=== PATIENT | male | born 1950 | race Caucasian/White ===

== ENCOUNTER → 2016-12-08 08:18 | Day surgery (SDC) | payer MEDICARE, BC, OTHER ==
[~2016-12-08 08:18] MED LIST: Buffered Lidocaine 1% SYR 3ML* 3 ML/SYR SYRINGE INTRADERM ONE; Buffered Lidocaine 1% SYR 3ML* 3 ML/SYR SYRINGE ONE; Dexamethasone IV* 4 MG/ML 1 ML (4 MG) IV SLOW PU ONE; Dexamethasone IV* 4 MG/ML 1 ML (4 MG) ONE; DiMENhydriNATE IV* 50 MG/ML VIAL IV PUSH PRN; Famotidine IV* 10 MG/ML 2 ML (20 mg) IV ONE; Famotidine IV* 10 MG/ML 2 ML (20 mg) ONE; Gentamicin ADULT (*) 140 MG in NS 0.9% 100 ML* 100 ML IVPB ONE; Ketorolac INJ* 30 MG/ML 1 ML VIAL ONE; Lidocaine 1% INJ* 10 MG/ML 30 ML SDV ONE; Ondansetron INJ* 2 MG/ML VIAL ONE; Propofol* 10 MG/ML 20 ML BTL IV PUSH ONE; cefTRIAXone(*) 2 GM ADDV.VIAL IVPB ONE; fentaNYL* 50 MCG/ML 2 ML VIAL (100 MCG VIAL) IV PRN; fentaNYL* 50 MCG/ML 2 ML VIAL (100 MCG VIAL) ONE
[2016-12-08 11:11] VITALS: BP 139/89
--- NOTE | 2016-12-08 12:16 | OP ---
DATE OF OPERATION: 12/08/2016 - [facility] DATE OF : 1950 - AGE: 66-year-old male. SURGEON: Dr. Marvin Chris. ANESTHESIOLOGIST: Dr. Bakari Jimenez. ANESTHESIA: General. PRE-OP DIAGNOSIS: 1. Urethral stricture. 2. Urinary retention. 3. Bladder calculi. POST-OP DIAGNOSIS: 1. Urethral stricture. 2. Urinary retention. 3. Bladder calculi. OPERATIVE PROCEDURE: Cystoscopy, internal urethrotomy, fragmentation and removal of multiple bladder calculi. COMPLICATIONS: None. CATHETER: 22 [place]. INDICATIONS: Ken Beck is a 66-year-old gentleman with multiple sclerosis, urinary retention and a history of urethral strictures. OPERATIVE FINDINGS: 1. Strictures bulbar urethra. 2. Multiple bladder calculi. 3. Diverticulum posterior bladder wall right side with additional calculi within diverticulum. POSTOPERATIVE CONDITION: Stable. DESCRIPTION OF PROCEDURE: After induction of general anesthesia, the patient was placed in the dorsal lithotomy position. Sequential compression devices were in place and functioning. The previously placed Alarcon had been removed. The internal urethrotome was introduced. In the bulbar urethra, a stricture was noted with small calcifications in that area. This was carefully incised at the 12 o'clock position. A cystoscope was then introduced and the bladder was examined. There were multiple calculi noted in the bladder. These were fragmented and removed. There was a diverticulum noted in the posterior bladder wall on the right side and this also was full of calculi. These were carefully extracted out of the diverticulum and then were fragmented and irrigated out the [facility] evacuator. A guidewire was placed into the bladder and a 22 [place] was placed over it without difficulty. The patient tolerated the procedure satisfactorily and was transferred back to the recovery area in stable condition. CC: Dr. Davila * [id number]/[facility] #: [id number] [facility]US[facility]
== END | disposition home or self-care (01) ==
LOC: OR 08:18
PROVIDERS: ATTEND Urology
DX: N35.9 Urethral stricture, unspecified (principal); G35 Multiple sclerosis; N21.0 Calculus in bladder; N32.3 Diverticulum of bladder; R33.9 Retention of urine, unspecified; I10 Essential (primary) hypertension; Z87.891 Personal history of nicotine dependence; E11.9 Type 2 diabetes mellitus without complications; Z85.038 Personal history of other malignant neoplasm of large intestine
CPT/HCPCS: J0696; J1100; J1580; J1885; J2405; J2704; J3010

== ENCOUNTER 2017-04-29 17:52 | Emergency (ER) | payer MEDICARE, BC, OTHER ==
--- NOTE | 2017-04-29 18:24 | ED ---
Lower Extremity - HPI Summary HPI Summary: 66M presents with left leg pain for 3 days. He has history of MS and is bed bound. He gets numbness in area that is due to MS and no recent change to this. States pain is worst when people move his leg for him as he is unable to move his leg on his own. He denies any back pain. There was no injury to the area. He states the pain is greatest on the posterior aspect of his calf. He denies any rash to the area. He has not taken anything for pain. He called his primary who told him to come here. - History of Current Complaint Chief Complaint: EDExtremityLower Stated Complaint: LEG PAIN Time Seen by Provider: 04/29/17 18:12 Pain Intensity: 3 - Allergies/Home Medications Allergies/Adverse Reactions: Allergies Allergy/AdvReac Type Severity Reaction Status Date / Time No Known Allergies Allergy Verified 12/08/16 08:29 PMH/Surg Hx/FS Hx/Imm Hx Endocrine/Hematology History: Reports: Hx Diabetes - TYPE 2 - NO MEDS Cardiovascular History: Reports: Hx Hypercholesterolemia, Hx Hypertension, Hx Peripheral Vascular Disease - POOR LOWER LEG CIRCULATION, Other Cardiovascular Problems/Disorders - CHOLESTEROL CONTROL WITH MEDS Denies: Hx Pacemaker/ICD GI History: Reports: Hx Gastroesophageal Reflux Disease - CONTROL WITH MED, Hx Gastrointestinal Bleed, Other GI Disorders - COLON CA History: Reports: Hx Kidney Infection, Hx Kidney Stones - HX OF, Other Problems/Disorders - HYDRONEPHROSIS AND PYLONEPHROSIS, chronic perez Musculoskeletal History: Reports: Hx Arthritis, Other Musculoskeletal History - MS Sensory History: Reports: Hx Cataracts - RIGHT EYE, SURGERY DONE, Hx Contacts or Glasses - READING GLASSES Denies: Hx Glaucoma, Hx Hearing Aid Opthamlomology History: Reports: Hx Cataracts - RIGHT EYE, SURGERY DONE, Hx Contacts or Glasses - READING GLASSES Denies: Hx Glaucoma Neurological History: Reports: Hx Developmental Delay, Other Neuro Impairments/ Disorders - MS Psychiatric History: Reports: Hx Anxiety Denies: Hx Panic Disorder - Cancer History Cancer Type, Location and Year: colon cancer? Hx Chemotherapy: No - Surgical History Surgery Procedure, Year, and Place: CATARACTS RIGHT EYE, 1997, [facility] [place],. HERNIATED DISC, , [facility] [place]. 2009 DIAG LAPAROSCOPY, LAPAROTOMY WITH SMALL BOWEL MESENTERIC MASS RESECTION, [facility] [place]. 06/2013 CYSTOSCOPY, BILATERAL RETROGRADE, URETEROSCOPY, FRAGMENTATION AND REMOVAL LEFT URETERAL CALCULUS, BILATERAL STENT INSERTION, [facility] [place]. 08/2013 CYSTOSCOPY, BILATERAL STENT REMOVAL, [facility] [place]. 08/2015 CYSTOSCOPY, URETHERAL DILATION, FRAGMENT OF BLADDER CALCULI, REMOVAL OF SUPRAPUBIC CATHETER, [facility] [place]. 10/2016 CYSTOSCOPY, URETHRAL DILATION, INSERTION OF [place] TIP CATHETER, [facility] [place] Hx Anesthesia Reactions: No - Immunization History Date of Tetanus Vaccine: Unk Date of Influenza Vaccine: Fall 2013 Infectious Disease History: No Infectious Disease History: Denies: Traveled Outside the [place] in Last 30 Days - Family History Known Family History: Positive: Diabetes Family History: Denies FHx prostate cancer - Social History Alcohol Use: None Substance Use Type: Reports: None Smoking Status (MU): Former Smoker Type: Cigarettes Have You Smoked in the Last Year: No Review of Systems Negative: Fever Negative: Chest Pain Negative: Shortness Of Breath Positive: Myalgia - left leg pain All Other Systems Reviewed And Are Negative: Yes Physical Exam Triage Information Reviewed: Yes Vital Signs On Initial Exam: Initial Vitals Temp Pulse Resp BP Pulse Ox 97.4 F 68 16 132/61 98 04/29/17 18:02 04/29/17 18:02 04/29/17 18:02 04/29/17 18:02 04/29/17 18:02 Vital Signs Reviewed: Yes Appearance: Positive: Well-Appearing Skin: Positive: Warm, Dry Head/Face: Positive: Normal Head/Face Inspection Eyes: Positive: Normal, Conjunctiva Clear Respiratory/Lung Sounds: Positive: Clear to Auscultation, Breath Sounds Present Cardiovascular: Positive: Normal, RRR Musculoskeletal: Positive: Other - tender to palpation of calf muscle, good pulses, capillary refill < 2 secs,. Negative: Lexy Sign Left Diagnostics - Vital Signs Vital Signs Temp Pulse Resp BP Pulse Ox 04/29/17 18:02 97.4 F 68 16 132/61 98 - Laboratory Lab Statement: Any lab studies that have been ordered have been reviewed, and results considered in the medical decision making process. - Ultrasound No standard instances Ultrasound Interpretation: No Acute Changes - IMPRESSION: NO EVIDENCE FOR DEEP VENOUS THROMBOSIS. Ultrasound Interpretation Completed By: Radiologist Lower Extremity Course/Dx - Course Course Of Treatment: 66M presents with intermittent left calf pain for 3 days. is bedbound so no risk of fracture. states worst when people try to move leg. has history of MS so no function in leg at baseline. no rash seen. neg homans. discussed that most dangerous thing would be blood clot. u/s leg normal. explained that fx unlikely and no DVT so do not have cause for pain but ruled out anything life threatening so can follow up with PCP. patient understands and agrees with plan - Diagnoses Differential Diagnosis/HQI/PQRI: Positive: DVT, Sprain, Strain Provider Diagnoses: Left leg pain Discharge - Discharge Plan Condition: Good Disposition: HOME Patient Education Materials: Leg Pain (ED) Referrals: Samantha Davila MD [Primary Care Provider] - Additional Instructions: You do not have a blood clot causing your pain Take ibuprofen or Tylenol every 8 hours for pain as needed Place ice on area Follow up with primary within 5 days Return to ED if develop any new or worsening symptoms
--- NOTE | 2017-04-29 19:44 | RAD ---
INDICATION: Left lower extremity pain. COMPARISON: There are no prior studies available for comparison. TECHNIQUE: Multiple real-time, color flow and Doppler tracings of the left lower extremity were obtained. FINDINGS: The common femoral, femoral, profunda femoral and popliteal veins all demonstrate normal compressibility, augmentation with compression and phasic response with respiration. The posterior tibial and peroneal veins demonstrate normal compressibility and augmentation with compression. IMPRESSION: NO EVIDENCE FOR DEEP VENOUS THROMBOSIS.
[2017-04-29] MEDS ORDERED: Ibuprofen TAB* 600 MG PO ONE (19:56)
[2017-04-29 20:14] VITALS: BP 127/51
== END 2017-04-29 23:24 | disposition home or self-care (01) ==
LOC: ED 17:52
DX: M79.605 Pain in left leg (principal); Z87.891 Personal history of nicotine dependence
CPT/HCPCS: 99284; A9270-GY

== ENCOUNTER 2017-11-24 16:28 | Inpatient (IN) | payer MEDICARE, BC, OTHER ==
[2017-11-24] MEDS ORDERED: NS 0.9% 1000 ML* 1,000 ML IV ONE (18:18)
--- NOTE | 2017-11-24 18:53 | ED ---
Deric Figueredo Angela, scribed for Kaylee Temple MD on 11/24/17 at 1744 . Upper Extremity Pain - HPI Summary HPI Summary: This pt is a 67 y/o male, accompanied by his , [facility]/[place] [facility] hand swelling. Per , trauma and injury are unknown to his hand. . reports the pt has felt warm, AMS, has been thirsty, and eye discharge. denies the pt has had recent fall. Denies fever, vomiting, diarrhea, chest pain , SOB. Pt has attempted to make an appointment with PCP but was unable to. Pt has multiple different kinds of insects on body. Pt has pets, denies her pets have fleas PMHx include BPH. Pt has a perez, dark and pus looking for 4-5 days. - History of Current Complaint Chief Complaint: EDExtremityUpper Stated Complaint: LT HAND SWELLING Time Seen by Provider: 11/24/17 17:37 Hx Obtained From: Patient Mechanism Of Injury: Unknown Onset/Duration: Started Days Ago, Still Present Timing: Lasting Days Pain Location: Hand - left Aggravating Factor(s): Nothing Alleviating Factor(s): Nothing Associated Signs & Symptoms: Positive: Swelling. Negative: Chest Pain, SOB - Allergies/Home Medications Allergies/Adverse Reactions: Allergies Allergy/AdvReac Type Severity Reaction Status Date / Time No Known Allergies Allergy Verified 12/08/16 08:29 PMH/Surg Hx/FS Hx/Imm Hx Endocrine/Hematology History: Reports: Hx Diabetes - TYPE 2 - NO MEDS Cardiovascular History: Reports: Hx Hypercholesterolemia, Hx Hypertension, Hx Peripheral Vascular Disease - POOR LOWER LEG CIRCULATION, Other Cardiovascular Problems/Disorders - CHOLESTEROL CONTROL WITH MEDS Denies: Hx Pacemaker/ICD GI History: Reports: Hx Gastroesophageal Reflux Disease - CONTROL WITH MED, Hx Gastrointestinal Bleed, Other GI Disorders - COLON CA History: Reports: Hx Kidney Infection, Hx Kidney Stones - HX OF, Other Problems/Disorders - HYDRONEPHROSIS AND PYLONEPHROSIS, chronic perez Musculoskeletal History: Reports: Hx Arthritis, Other Musculoskeletal History - MS Sensory History: Reports: Hx Cataracts - RIGHT EYE, SURGERY DONE, Hx Contacts or Glasses - READING GLASSES Denies: Hx Glaucoma, Hx Hearing Aid Opthamlomology History: Reports: Hx Cataracts - RIGHT EYE, SURGERY DONE, Hx Contacts or Glasses - READING GLASSES Denies: Hx Glaucoma Neurological History: Reports: Hx Developmental Delay, Other Neuro Impairments/ Disorders - MS Psychiatric History: Reports: Hx Anxiety Denies: Hx Panic Disorder - Cancer History Cancer Type, Location and Year: colon cancer? Hx Chemotherapy: No - Surgical History Surgery Procedure, Year, and Place: CATARACTS RIGHT EYE, 1997, [facility] [place],. HERNIATED DISC, , [facility] [place]. 2009 DIAG LAPAROSCOPY, LAPAROTOMY WITH SMALL BOWEL MESENTERIC MASS RESECTION, [facility] [place]. 06/2013 CYSTOSCOPY, BILATERAL RETROGRADE, URETEROSCOPY, FRAGMENTATION AND REMOVAL LEFT URETERAL CALCULUS, BILATERAL STENT INSERTION, [facility] [place]. 08/2013 CYSTOSCOPY, BILATERAL STENT REMOVAL, [facility] [place]. 08/2015 CYSTOSCOPY, URETHERAL DILATION, FRAGMENT OF BLADDER CALCULI, REMOVAL OF SUPRAPUBIC CATHETER, [facility] [place]. 10/2016 CYSTOSCOPY, URETHRAL DILATION, INSERTION OF [place] TIP CATHETER, [facility] Anesthesia Reactions: No - Immunization History Date of Tetanus Vaccine: Unk Date of Influenza Vaccine: Fall 2013 Infectious Disease History: No Infectious Disease History: Denies: Traveled Outside the [place] in Last 30 Days - Family History Known Family History: Positive: Diabetes Family History: Denies FHx prostate cancer - Social History Alcohol Use: None Substance Use Type: Reports: None Smoking Status (MU): Former Smoker Type: Cigarettes Have You Smoked in the Last Year: No Review of Systems Constitutional: Other - feeling warm, per . Negative: Fever Positive: Drainage Negative: Chest Pain Negative: Shortness Of Breath Negative: Vomiting, Diarrhea Positive: Edema - of left hand Skin: Other - edema to left hand Neurological: Other - AMS All Other Systems Reviewed And Are Negative: No Physical Exam - Summary Physical Exam Summary: Appearance: Alert, emaciated muscle wasting Skin: Warm, dry, no mottling, no rashes, no contusions HEENT: EOMI, PERRL, moist mucous membranes. Left eye: conjunctiva is injected and has a little bit of discharge. Neck: No masses on the neck, supple Respiratory: Clear to auscultation, breath sounds present, no rales, no rhonchi , no wheezes Cardiovascular: RRR, pulses are symmetrical in both lower and upper extremities Abdomen: Soft, non-tender Bowel Sounds: Present Musculoskeletal: No CVA tenderness, no obvious deformity, moving all extremities in a grossly normal manner. Dependent edema to the right. Neurological: A&Ox3, CN II-XII Intact, moving all extremities symmetrically Psychiatric: Normal affect and mood Triage Information Reviewed: Yes Vital Signs On Initial Exam: Initial Vitals Temp Pulse Resp BP Pulse Ox 99.1 F 82 18 104/65 95 11/24/17 16:35 11/24/17 16:35 11/24/17 16:35 11/24/17 16:35 11/24/17 16:35 Vital Signs Reviewed: Yes Diagnostics - Vital Signs Vital Signs Temp Pulse Resp BP Pulse Ox 11/24/17 16:35 99.1 F 82 18 104/65 95 - Laboratory Lab Statement: Any lab studies that have been ordered have been reviewed, and results considered in the medical decision making process. Course/Dx - Course Course Of Treatment: This pt is a 67 y/o male, accompanied by his , presenting to [facility] c/o left hand swelling. Per , trauma and injury are unknown to his hand. . reports the pt has felt warm, AMS, has been thirsty , and eye discharge. denies the pt has had recent fall. Pt will be signed out to Dr. Orozco, pending disposition, awaiting images and labs. I spoke with the nurse requesting pt's wedding ring be removed from left ring finger due to the swelling of the left hand. - Diagnoses Provider Diagnoses: Dehydration Discharge - Discharge Plan Condition: Stable Disposition: OTHER Discharge Disposition Comment: signed out to Dr. Orozco, pending disposition, awaiting images and labs. Referrals: Samantha Davila MD [Primary Care Provider] - The documentation as recorded by the Deric slaughter Angela accurately reflects the service I personally performed and the decisions made by me, Kaylee Tmeple MD.
[2017-11-24 19:11] LABS: ABS Basophils 0 10^3/ul (0-0.2); ABS Eosinophils 0 10^3/ul (0-0.6); ABS Lymphocytes 1.2 10^3/ul (1.0-4.8); ABS Monocytes 1.2 10^3/ul (0-0.8); ABS Neutrophils 8.9 10^3/ul (1.5-7.7); ABS Nucleated RBC 0.01 10^3/ul; Eosinophil % 0.4 % (0-6); Hematocrit 37 % (42-52); Hemoglobin 12.2 g/dl (14.0-18.0); Lymphocyte % 10.7 % (25-47); Mean Corpuscular HGB Conc 33 g/dl (31-36); Mean Corpuscular Hemoglobin 31 pg (27-31); Mean Corpuscular Volume 95 fL (80-94); Mean Platelet Volume 9 um3 (7.4-10.4); Nucleated Red Blood Cells % 0; Platelet Count 311 10^3/ul (150-450); Red Cell Distribution Width 16 % (10.5-15); White Blood Count 11.4 10^3/ul (3.5-10.8)
[2017-11-24 19:22] LABS: EGFR Non-African American 234.1 (>60)
--- NOTE | 2017-11-24 19:32 | RAD ---
Indication: LEFT hand swelling. Comparison: January 17, 2015 Technique: Sitting AP 1840 hours Report: No pulmonary infiltrate, focal pulmonary lesion, pleural effusion, or pneumothorax. Mild elevation of the RIGHT hemidiaphragm. The heart, pulmonary vasculature, and mediastinal contours are unremarkable. Bone density appears decreased throughout. No fracture visualized. IMPRESSION: No evidence for acute intrathoracic disease.
--- NOTE | 2017-11-24 19:40 | RAD ---
Indication: LEFT hand swelling. Comparison: No relevant prior exams available on the [facility] PACS for comparison. Technique: AP and lateral views LEFT hand. Report: Bone density appears severely decreased throughout. No fracture evident. Polyarticular joint space narrowing most prominent at the interphalangeal joints with relative paucity of osteophytosis. Suggestion of small erosions at the metacarpal phalangeal and interphalangeal joints. Periarticular osteopenia. Mild periarticular soft tissue swelling. IMPRESSION: 1. Marked decreased bone density. No evidence for fracture. 2. Stigmata of polyarticular inflammatory arthropathy/rheumatoid arthritis.
[2017-11-24 21:07] LABS: Urine Appearance Turbid; Urine Blood 3+ (Negative); Urine Color Amber; Urine Ketones Trace (Negative); Urine Protein 3+(>=500 mg/dL) (Negative); Urine Urobilinogen Positive (Negative)
[2017-11-24] MEDS ORDERED: Levofloxacin 500 MG IVPREMIX(* 500 MG/100 ML BAG IVPB ONE (22:48)
--- NOTE | 2017-11-24 22:55 | ED ---
Yanni Figueredo Gabriel, edsonibed for Bree Oroczo MD on 11/24/17 at 2254 . Progress - Progress Note Progress Note: Patient was signed out from doctor Maverick. CXR reveals, per radiologist, No evidence for acute intrathoracic disease. ED physician has reviewed this radiology report. Hand XR reveals, per radiologist, 1. Marked decreased bone density. No evidence for fracture. 2. Stigmata of polyarticular inflammatory arthropathy/rheumatoid arthritis. ED physician has reviewed this radiology report. Patient will be admitted with follow up from Dr. Cueto. Course/Dx - Course Course Of Treatment: This pt is a 67 y/o male, accompanied by his , presenting to [facility] c/o left hand swelling. Per , trauma and injury are unknown to his hand. . reports the pt has felt warm, AMS, has been thirsty , and eye discharge. denies the pt has had recent fall. Pt will be signed out to Dr. Orozco, pending disposition, awaiting images and labs. I spoke with the nurse requesting pt's wedding ring be removed from left ring finger due to the swelling of the left hand. - Diagnoses Provider Diagnoses: Dehydration, UTI (urinary tract infection) - Provider Notifications Discussed Care Of Patient With: Miah Hernandez Time Discussed With Above Provider: 22:54 Instructed by Provider To: Admit As Inpatient The documentation as recorded by the Yanni slaughter Gabriel accurately reflects the service I personally performed and the decisions made by , Bree Orozco MD.
[2017-11-24] MEDS ORDERED: Acetaminophen SUPP* 650 MG SUPP PR PRN (23:00)
[2017-11-24] MEDS ORDERED: Albuterol 2.5 MG/3 ML NEB.SOL* (0.083%) INH PRN (23:00)
[2017-11-24] MEDS ORDERED: LORazepam INJ* 2 MG/ML 1 ML VIAL IV PRN (23:02)
[2017-11-24] MEDS ORDERED: Ondansetron INJ* 2 MG/ML VIAL IV PRN (23:03)
--- NOTE | 2017-11-25 02:47 | HP ---
H&P (Free Text) History and Physical: PCP: Kiera Davila MD Date/Time: 11/24/2017 2250 CC: mild L hand swelling, urinary catheter 2 months past due for exchange, runny eyes HPI: Mr Beck is a 67YO bed-bound male HX MS w/ neurogenic bladder, DM, HTN, & HLD who was brought in via EMS per his for mild L hand swelling which has since spontaneously improved. Mr Beck denies injury, pain, F/C, N/V/D, sweats, chest pain, SOB, N/V, palpitations, or other issues. He was noted by ED staff to be infested with bed bugs and have dried food caking his face. It was felt he was not able to be adequately cared for at home and so admission was requested for further evaluation and consideration of placement. PMedHx MS, bed-bound w/ neurogenic bladder DM, diet controlled HTN HLD BPH GERD Ambulatory Orders Nursing to reconcile. Aspirin EC TAB* [Ecotrin EC TAB*] 325 mg PO QAM 07/06/13 Atenolol TAB* [Tenormin TAB* 50 MG] 25 mg PO QAM 07/06/13 Baclofen TAB* [Lioresal TAB*] 20 mg PO TID 07/06/13 Ferrous Sulfate TAB* 325 mg PO QAM 07/06/13 Meclizine TAB* [Antivert 12.5 TAB*] 25 mg PO Q8HR PRN 07/06/13 Pantoprazole TAB (NF) [Protonix TAB (NF)] 40 mg PO QAM 07/06/13 Citalopram TAB* [Celexa TAB*] 40 mg PO QAM 01/17/15 Multiple Vitamins W/ Minerals [Multi Complete/Iron] 1 tab PO QAM 01/17/15 Ibuprofen TAB* [Advil TAB*] 400 mg PO Q6H PRN 09/01/15 Magnesium Hydroxide LIQ* [Milk of Magnesia LIQ*] 30 ml PO Q3D PRN 09/01/15 Oxybutynin XL TAB* [Ditropan XL TAB*] 5 mg PO TID 09/01/15 Fenofibrate(NF) [Tricor(NF)] 145 mg PO QAM 10/02/16 Nystatin TOP POWDER* 1 applic TOPICAL BID 10/02/16 Barnwell-3 Fatty Acids [Fish Oil 1200 mg] 1 cap PO BID 10/02/16 Polyethylene Glycol 3350* [Miralax*] 17 gm PO QAM 10/02/16 Sennosides [Senna-Lax] 17.2 mg PO Q24HR 10/02/16 Simvastatin (NF) [Zocor (NF)] 40 mg PO BEDTIME 10/02/16 Sulfamethox/Trimethoprim DS* [Bactrim DS 800/160 TAB*] 1 tab PO BID #20 tab 09/07 Ciprofloxacin TAB* [Cipro 500 MG TAB*] 500 mg PO BID #20 tab 10/05/16 Terbinafine HCl (Topical) [Lamisil At] 1 % EX DAILY #1 tube 01/05/17 Ciprofloxacin TAB* [Cipro 250 MG Tab*] 250 mg PO BID #14 tab 03/13/17 Allergies No Known Allergies Allergy (Verified 12/08/16 08:29) SocHx: former smoker, no alcohol or recreational drug HX; lives with his ; DNR/I code status FamHx: strongly positive for leukemia ROS: as above, otherwise reviewed and all were negative vitals: Vital Signs Temp 37.3 C 11/24/17 16:35 Pulse 84 11/25/17 01:18 Resp 16 11/25/17 01:18 BP 90/65 11/25/17 01:18 Pulse Ox 96 11/25/17 01:18 Intake & Output 11/24/17 11/24/17 11/25/17 11:59 23:59 11:59 Intake Total 1000 Balance 1000 Weight 38.555 kg Intake: IV Fluids 1000 Constitutional: NAD, normally developed, unkempt, cachectic white male HEENM: atraumatic; sclera/conjunctiva: anicteric/clear; hearing: clinically intact; oropharynx: clear, mucosa moist Neck: soft tissue: non-tender, no nuchal rigidity; thyroid: normal, non-tender Pulmonary: clear to auscultation bilaterally, good aeration, no accessory muscle use CV: RR/RR, normal S1S2, no carotid bruit, no jugular venous distention, 2+ B DP/ PT, no edema Abdominal: soft, non-distended, non-tender, no rebound/guarding/rigidity, normoactive bowel sounds, no hepatosplenomegaly or masses, no costovertebral angle tenderness Musculoskeletal: general: grossly intact, generally advanced muscle wasting & atrophy Integumental: normal appearance and texture of exposed skin Psychiatric orientation: AA&O to PPS affect: calm mood: cooperative eye contact: fair content: mostly reliable responses: timely insight: poor Testing: Lab Results 11/24/17 11/24/17 11/24/17 Range/Units 18:55 18:55 18:55 WBC 11.4 H (3.5-10.8) 10^3/ul RBC 3.90 L (4.0-5.4) 10^6/ul Hgb 12.2 L (14.0-18.0) g/dl Hct 37 L (42-52) % MCV 95 H (80-94) fL MCH 31 (27-31) pg MCHC 33 (31-36) g/dl RDW 16 H (10.5-15) % Plt Count 311 (150-450) 10^3/ul MPV 9 (7.4-10.4) um3 Neut % (Auto) 77.9 (38-83) % Lymph % (Auto) 10.7 L (25-47) % [place] % (Auto) 10.6 H (1-9) % Eos % (Auto) 0.4 (0-6) % Baso % (Auto) 0.4 (0-2) % Absolute Neuts (auto) 8.9 H (1.5-7.7) 10^3/ul Absolute Lymphs (auto) 1.2 (1.0-4.8) 10^3/ul Absolute Monos (auto) 1.2 H (0-0.8) 10^3/ul Absolute Eos (auto) 0 (0-0.6) 10^3/ul Absolute Basos (auto) 0 (0-0.2) 10^3/ul Absolute Nucleated RBC 0.01 10^3/ul Nucleated RBC % 0 Sodium 137 (133-145) mmol/L Potassium 3.5 (3.5-5.0) mmol/L Chloride 104 (101-111) mmol/L Carbon Dioxide 28 (22-32) mmol/L Anion Gap 5 (2-11) mmol/L BUN 35 H (6-24) mg/dL Creatinine 0.37 L (0.67-1.17) mg/dL Est GFR ( Amer) 301.0 (>60) Est GFR (Non-Af Amer) 234.1 (>60) BUN/Creatinine Ratio 94.6 H (8-20) Glucose 109 H (70-100) mg/dL Lactic Acid 0.6 (0.5-2.0) mmol/L Calcium 9.0 (8.6-10.3) mg/dL Total Bilirubin 0.60 (0.2-1.0) mg/dL AST 10 L (13-39) U/L ALT 8 (7-52) U/L Alkaline Phosphatase 28 L (34-104) U/L Total Protein 5.5 L (6.4-8.9) g/dL Albumin 3.1 L (3.2-5.2) g/dL Globulin 2.4 (2-4) g/dL Albumin/Globulin Ratio 1.3 (1-3) Urine Color Urine Appearance Urine pH (5-9) Ur Specific Lamont (1.010-1.030) Urine Protein (Negative) Urine Ketones (Negative) Urine Blood (Negative) Urine Nitrate (Negative) Urine Bilirubin (Negative) Urine Urobilinogen (Negative) Ur Leukocyte Esterase (Negative) Urine WBC (Auto) (Absent) Urine RBC (Auto) (Absent) Urine Bacteria (Absent) Urine Glucose (Negative) 11/24/17 Range/Units 20:37 WBC (3.5-10.8) 10^3/ul RBC (4.0-5.4) 10^6/ul Hgb (14.0-18.0) g/dl Hct (42-52) % MCV (80-94) fL MCH (27-31) pg MCHC (31-36) g/dl RDW (10.5-15) % Plt Count (150-450) 10^3/ul MPV (7.4-10.4) um3 Neut % (Auto) (38-83) % Lymph % (Auto) (25-47) % [place] % (Auto) (1-9) % Eos % (Auto) (0-6) % Baso % (Auto) (0-2) % Absolute Neuts (auto) (1.5-7.7) 10^3/ul Absolute Lymphs (auto) (1.0-4.8) 10^3/ul Absolute Monos (auto) (0-0.8) 10^3/ul Absolute Eos (auto) (0-0.6) 10^3/ul Absolute Basos (auto) (0-0.2) 10^3/ul Absolute Nucleated RBC 10^3/ul Nucleated RBC % Sodium (133-145) mmol/L Potassium (3.5-5.0) mmol/L Chloride (101-111) mmol/L Carbon Dioxide (22-32) mmol/L Anion Gap (2-11) mmol/L BUN (6-24) mg/dL Creatinine (0.67-1.17) mg/dL Est GFR ( Amer) (>60) Est GFR (Non-Af Amer) (>60) BUN/Creatinine Ratio (8-20) Glucose (70-100) mg/dL Lactic Acid (0.5-2.0) mmol/L Calcium (8.6-10.3) mg/dL Total Bilirubin (0.2-1.0) mg/dL AST (13-39) U/L ALT (7-52) U/L Alkaline Phosphatase (34-104) U/L Total Protein (6.4-8.9) g/dL Albumin (3.2-5.2) g/dL Globulin (2-4) g/dL Albumin/Globulin Ratio (1-3) Urine Color Katie Urine Appearance Turbid Urine pH 5.0 (5-9) Ur Specific Lam[place] 1.020 (1.010-1.030) Urine Protein 3+(>=500 mg/dl) H (Negative) Urine Ketones Trace H (Negative) Urine Blood 3+ H (Negative) Urine Nitrate Negative (Negative) Urine Bilirubin Negative (Negative) Urine Urobilinogen Positive H (Negative) Ur Leukocyte Esterase 3+ H (Negative) Urine WBC (Auto) 3+(>20/hpf) H (Absent) Urine RBC (Auto) 3+(>10/hpf) H (Absent) Urine Bacteria 1+ H (Absent) Urine Glucose Negative (Negative) CXR, personally reviewed: IMPRESSION: No evidence for acute intrathoracic disease. XRY L hand, personally reviewed: IMPRESSION: 1. Marked decreased bone density. No evidence for fracture. 2. Stigmata of polyarticular inflammatory arthropathy/rheumatoid arthritis. Impression: 67M HX bed-bound MS w/ neurogenic bladder presents with multiple benign complaints, unable to be cared for at home; found to have a UTI DIAGNOSIS & PLAN Primary UTI : IV levofloxacin : blood & urine CX : supportive care generalized deconditioning : PT/OT evaluations : social worker health services consult for placement Secondary MS : bed-bound w/ neurogenic bladder : exchange catheter : review meds once reconciled DM, diet controlled : check A1c : ACHS glucometry : correctional insulin : consistent carb diet once bedside swallow passed HTN : review meds once reconciled HLD : review meds once reconciled BPH : review meds once reconciled GERD : IV pantoprazole until bedside swallowing eval passed Admission Rational: observation for UTI, generalized conditioning, and assistance with placement DVTp: SCDs & heparin SQ Code Status: DNR/I HCP:
[2017-11-25] MEDS: Insulin LISPRO* 1 UNITS UNIT SUBCUT SCH ×5 (04:28→20:45)
[2017-11-25] MEDS: Heparin VIAL(*) 5000 UNITS/ML VIAL (FIVE THOUSAND) SUBCUT SCH ×3 (05:39→23:12)
[2017-11-25 07:57] LABS: ABS Basophils 0 10^3/ul (0-0.2); ABS Eosinophils 0 10^3/ul (0-0.6); ABS Lymphocytes 0.7 10^3/ul (1.0-4.8); ABS Monocytes 0.7 10^3/ul (0-0.8); ABS Neutrophils 6.1 10^3/ul (1.5-7.7); ABS Nucleated RBC 0 10^3/ul; EGFR Non-African American 298.2 (>60); Eosinophil % 0.6 % (0-6); Hematocrit 33 % (42-52); Hemoglobin 11.1 g/dl (14.0-18.0); Lymphocyte % 9.5 % (25-47); Mean Corpuscular HGB Conc 34 g/dl (31-36); Mean Corpuscular Hemoglobin 32 pg (27-31); Mean Corpuscular Volume 96 fL (80-94); Mean Platelet Volume 9 um3 (7.4-10.4); Nucleated Red Blood Cells % 0; Platelet Count 248 10^3/ul (150-450); Red Blood Count 3.45 10^6/ul (4.0-5.4); Red Cell Distribution Width 16 % (10.5-15); White Blood Count 7.6 10^3/ul (3.5-10.8)
[2017-11-25 08:05] LABS: INR 1.13 (0.77-1.02)
[2017-11-25] MEDS ORDERED: Pneumococcal *Vac Polyvalent 0.5 ML VIAL IM ONE (09:00)
[2017-11-25] MEDS ORDERED: Pantoprazole IV* 40 MG IV SCH (09:00)
--- NOTE | 2017-11-25 15:51 | PN ---
Subjective Date of Service: 11/25/17 Interval History: Patient seen and examined at bedside. Mr. Beck reports improvement in overall symptoms and discomfort. Denies fever/chills, CP, SOB, pain. Patient states he would consider rehab but not SNF placement at this time. Family History: Unchanged from Admission Social History: Unchanged from Admission Past Medical History: Unchanged from Admission Objective Active Medications: Acetaminophen (Tylenol Supp*) 650 mg TN Q6H PRN PRN Reason: FEVER/PAIN Albuterol (Ventolin 2.5 Mg/3 Ml Neb.Bailee*) 2.5 mg INH Q2H PRN PRN Reason: SOB/WHEEZING Heparin Sodium (Porcine) (Heparin Vial(*)) 5,000 units SUBCUT Q8HR [facility] Last Admin: 11/25/17 15:30 Dose: 5,000 units Levofloxacin/Dextrose (Levaquin 750 Mg Ivpremix(*)) 750 mg in 150 mls @ 100 mls /hr IVPB Q24H [facility] Lactated Ringer's (Lactated Ringers 1000 Ml Bag*) 1,000 mls @ 125 mls/hr IV PER RATE [facility] Last Admin: 11/25/17 12:30 Dose: 125 mls/hr Insulin Human Lispro (Humalog*) 0 units SUBCUT Q4H [facility] PRN Reason: Protocol Last Admin: 11/25/17 12:35 Dose: Not Given Lorazepam (Ativan Inj*) 0.5 mg IV BEDTIME PRN PRN Reason: SLEEP Ondansetron HCl (Zofran Inj*) 4 mg IV Q6H PRN PRN Reason: NAUSEA Pantoprazole Sodium (Protonix Iv*) 40 mg IV DAILY [facility] Last Admin: 11/25/17 09:00 Dose: 40 mg Vital Signs - 8 hr 11/25/17 08:00 Respiratory 16 Rate Oxygen Devices in Use Now: None Appearance: Frail, cachectic male, sitting up in bed, NAD Eyes: No Scleral Icterus, PERRLA Ears/Nose/Mouth/Throat: Clear Oropharnyx, Mucous Membranes Moist Neck: NL Appearance and Movements; NL JVP Respiratory: Symmetrical Chest Expansion and Respiratory Effort, Clear to Auscultation Cardiovascular: NL Sounds; No Murmurs; No JVD, RRR Abdominal: NL Sounds; No Tenderness; No Distention Extremities: No Clubbing, Cyanosis, - - bilateral foot drop and upper and lower extremity contractures Neurological: Alert and Oriented x 3 Lines/Tubes/Other Access: Clean, Dry and Intact Perez, Clean, Dry and Intact Peripheral IV Nutrition: Taking PO's Result Diagrams: 11/25/17 07:30 11/25/17 07:30 Assess/Plan/Problems-Billing Assessment: Mr. Beck is 67 yo male with a PMH of MS, neurogenic bladder with chronic indwelling catheter, DM, HTN, HLD, GERD, and BPH who presented with left hand swelling, eye discharge, and concern for UTI. - Patient Problems (1) UTI (urinary tract infection) due to urinary indwelling Perez catheter Code(s): T83.51XA - ; N39.0 - URINARY TRACT INFECTION, SITE NOT SPECIFIED Comment: Urine culture pending Catheter exchanged on admission Continue levofloxacin (2) Multiple sclerosis Code(s): G35 - MULTIPLE SCLEROSIS Comment: Supportive care Continue home baclofen, ibuprofen PT/OT to assess physical deconditioning, contractures, foot drop (3) Type 2 diabetes mellitus Comment: Diet controlled Continue Lispro SSI (4) History of neurogenic bladder Priority: Medium Code(s): Z87.448 - PERSONAL HISTORY OF OTHER DISEASES OF URINARY SYSTEM Comment: Reason for indwelling perez (5) Protein-calorie malnutrition, severe Code(s): E43 - UNSPECIFIED SEVERE PROTEIN-CALORIE MALNUTRITION Comment: With temporal wasting and generalized muscle wasting BMI 13.3 Nutritional consult Continue Ensure supplements (6) Hypertension Code(s): I10 - ESSENTIAL (PRIMARY) HYPERTENSION Comment: Hypotensive to normotensive Continue home atenolol with home parameters (7) Hyperlipidemia Code(s): E78.5 - HYPERLIPIDEMIA, UNSPECIFIED Comment: Continue atorvastatin in subsitute for simvastatin. (8) Confined to bed Code(s): Z74.01 - BED CONFINEMENT STATUS Comment: Reportedly non-ambulatory secondary to MS (9) DVT prophylaxis Comment: SQ heparin Status and Disposition: OBV admit. Evaluation for LAMBERT needs.
[2017-11-25] MEDS ORDERED: ALPRAZolam TAB* 0.25 MG PO PRN (19:06)
[2017-11-25] MEDS ORDERED: Ibuprofen TAB* 400 MG PO PRN (19:06)
[2017-11-25] MEDS ORDERED: Meclizine TAB* 12.5 MG PO PRN (19:06)
[2017-11-25] MEDS: Aspirin EC TAB* 325 MG PO SCH (20:41)
[2017-11-25] MEDS: CMCS: Pantoprazole TAB (NF) 40 MG TAB PO SCH (20:41)
[2017-11-25] MEDS: Baclofen TAB* 10 MG PO SCH (20:41)
[2017-11-25] MEDS: Tobramycin 0.3% OPHTH.SOL* 5 ML BOT (regular eye drops) RIGHT EYE SCH (20:41)
[2017-11-25] MEDS: Senna TAB PO PRN (20:41)
[2017-11-25] MEDS: Oxybutynin TAB* 5 MG PO SCH (20:41)
[2017-11-25] MEDS: Citalopram TAB* 40 MG PO SCH (20:41)
[2017-11-25] MEDS ORDERED: Levofloxacin 750 MG IVPREMIX(* 750 MG/150 ML BAG IVPB SCH (23:00)
[2017-11-26] MEDS: Insulin LISPRO* 1 UNITS UNIT SUBCUT SCH ×5 (00:55→17:33)
[2017-11-26] MEDS: Tobramycin 0.3% OPHTH.SOL* 5 ML BOT (regular eye drops) RIGHT EYE SCH (00:58)
[2017-11-26] MEDS: Tobramycin 0.3% OPHTH.SOL* 5 ML BOT (regular eye drops) LEFT EYE SCH ×6 (01:38→21:24)
[2017-11-26] MEDS: Heparin VIAL(*) 5000 UNITS/ML VIAL (FIVE THOUSAND) SUBCUT SCH ×3 (05:33→21:21)
[2017-11-26] MEDS ORDERED: Atenolol TAB* 50 MG PO SCH (09:00)
[2017-11-26] MEDS: Baclofen TAB* 10 MG PO SCH ×3 (09:24→21:21)
[2017-11-26] MEDS: Aspirin EC TAB* 325 MG PO SCH (09:24)
[2017-11-26] MEDS: Citalopram TAB* 40 MG PO SCH (09:25)
[2017-11-26] MEDS: Atenolol TAB* 25 MG PO SCH (09:25)
[2017-11-26] MEDS: Nystatin CREAM* 15 GM TUBE TOPICAL SCH (09:25)
[2017-11-26] MEDS: Lactobacillus Acidophilu (GG)* 1 CAP CAP PO SCH (09:25)
[2017-11-26] MEDS: CMCS: Fenofibrate(NF) 145 MG TAB PO SCH (09:25)
[2017-11-26] MEDS: CMCS: Pantoprazole TAB (NF) 40 MG TAB PO SCH (09:25)
[2017-11-26] MEDS: Oxybutynin TAB* 5 MG PO SCH ×3 (09:25→21:21)
[2017-11-26] MEDS: Ferrous Sulfate TAB* 325 MG PO SCH (11:12)
--- NOTE | 2017-11-26 12:13 | PN ---
Subjective Date of Service: 11/26/17 Interval History: Patient seen and examined at bedside. Mr. Beck is pleasant and states he feels better overall. Denies fever/chills, increased pain, CP, SOB. No acute concerns at this time. Family History: Unchanged from Admission Social History: Unchanged from Admission Past Medical History: Unchanged from Admission Objective Active Medications: Acetaminophen (Tylenol Supp*) 650 mg OK Q6H PRN PRN Reason: FEVER/PAIN Albuterol (Ventolin 2.5 Mg/3 Ml Neb.Bailee*) 2.5 mg INH Q2H PRN PRN Reason: SOB/WHEEZING Alprazolam (Xanax Tab*) 0.25 mg PO TID PRN PRN Reason: ANXIETY Aspirin (Ecotrin Ec Tab*) 325 mg PO DAILY [facility] Last Admin: 11/26/17 09:24 Dose: 325 mg Atenolol (Tenormin Tab*) 25 mg PO DAILY [facility] Last Admin: 11/26/17 09:25 Dose: 25 mg Atorvastatin Calcium (Lipitor*) 20 mg PO 1700 [facility] Baclofen (Lioresal Tab*) 20 mg PO TID [facility] Last Admin: 11/26/17 09:24 Dose: 20 mg Citalopram Hydrobromide (Celexa Tab*) 40 mg PO DAILY [facility] Last Admin: 11/26/17 09:25 Dose: 40 mg Fenofibrate (Tricor(Nf)) 145 mg PO DAILY [facility] Last Admin: 11/26/17 09:25 Dose: 145 mg Ferrous Sulfate (Ferrous Sulfate Tab*) 325 mg PO DAILY@1200 [facility] Last Admin: 11/26/17 11:12 Dose: 325 mg Heparin Sodium (Porcine) (Heparin Vial(*)) 5,000 units SUBCUT Q8HR [facility] Last Admin: 11/26/17 05:33 Dose: 5,000 units Levofloxacin/Dextrose (Levaquin 750 Mg Ivpremix(*)) 750 mg in 150 mls @ 100 mls /hr IVPB Q24H [facility] Last Admin: 11/25/17 23:13 Dose: 100 mls/hr Lactated Ringer's (Lactated Ringers 1000 Ml Bag*) 1,000 mls @ 125 mls/hr IV PER RATE [facility] Last Admin: 11/26/17 06:56 Dose: 125 mls/hr Ibuprofen (Motrin Tab*) 400 mg PO Q6H PRN PRN Reason: PAIN Insulin Human Lispro (Humalog*) 0 units SUBCUT Q4H [facility] PRN Reason: Protocol Last Admin: 11/26/17 07:13 Dose: Not Given Lactobacillus Rhamnosus (Culturelle*) 1 cap PO DAILY [facility] Last Admin: 11/26/17 09:25 Dose: 1 cap Lorazepam (Ativan Inj*) 0.5 mg IV BEDTIME PRN PRN Reason: SLEEP Meclizine HCl (Antivert Tab*) 25 mg PO Q8H PRN PRN Reason: DIZZINESS Nystatin (Nystatin Cream*) 1 applic TOPICAL DAILY [facility] Last Admin: 11/26/17 09:25 Dose: 1 applic Oxybutynin Chloride (Ditropan Tab*) 5 mg PO TID [facility] Last Admin: 11/26/17 09:25 Dose: 5 mg Pantoprazole Sodium (Protonix Tab (Nf)) 40 mg PO DAILY [facility] Last Admin: 11/26/17 09:25 Dose: 40 mg Senna (Senokot Tab*) 1 tab PO BID PRN PRN Reason: CONSTIPATION Last Admin: 11/25/17 20:41 Dose: 1 tab Tobramycin Sulfate (Tobramycin 0.3% Ophth.Bailee*) 2 drop LEFT EYE Q4H [facility] Last Admin: 11/26/17 09:26 Dose: 2 drop Vital Signs - 8 hr 11/26/17 11/26/17 07:13 08:15 Temperature 97.6 F Pulse Rate 90 Respiratory 14 14 Rate Blood Pressure 147/74 (mmHg) O2 Sat by Pulse 100 Oximetry Oxygen Devices in Use Now: None Appearance: Frail, cachectic male, lying in bed, pleasant, NAD Eyes: No Scleral Icterus Ears/Nose/Mouth/Throat: Mucous Membranes Moist - poor dentition Neck: NL Appearance and Movements; NL JVP Respiratory: Symmetrical Chest Expansion and Respiratory Effort, Clear to Auscultation Cardiovascular: NL Sounds; No Murmurs; No JVD, RRR Abdominal: NL Sounds; No Tenderness; No Distention Neurological: Alert and Oriented x 3 Lines/Tubes/Other Access: Clean, Dry and Intact Peripheral IV Nutrition: Taking PO's Result Diagrams: 11/25/17 07:30 11/25/17 07:30 Assess/Plan/Problems-Billing Assessment: Mr. Beck is 67 yo male with a PMH of MS, neurogenic bladder with chronic indwelling catheter, DM, HTN, HLD, GERD, and BPH who presented with left hand swelling, eye discharge, and concern for UTI. - Patient Problems (1) UTI (urinary tract infection) due to urinary indwelling Perez catheter Code(s): T83.51XA - ; N39.0 - URINARY TRACT INFECTION, SITE NOT SPECIFIED Comment: Urine culture growing pseudomonas and citrobacter Continue levofloxacin for now; will await sensitivities Catheter exchanged on admission (2) Multiple sclerosis Code(s): G35 - MULTIPLE SCLEROSIS Comment: Supportive care Continue home baclofen, ibuprofen PT/OT to assess physical deconditioning, contractures, foot drop (3) Type 2 diabetes mellitus Comment: Diet controlled Continue Lispro SSI (4) History of neurogenic bladder Priority: Medium Code(s): Z87.448 - PERSONAL HISTORY OF OTHER DISEASES OF URINARY SYSTEM Comment: Reason for indwelling perez (5) Protein-calorie malnutrition, severe Code(s): E43 - UNSPECIFIED SEVERE PROTEIN-CALORIE MALNUTRITION Comment: With temporal wasting and generalized muscle wasting BMI 13.3 Nutritional consult Continue Ensure supplements (6) Hypertension Code(s): I10 - ESSENTIAL (PRIMARY) HYPERTENSION Comment: Normotensive Continue home atenolol with home parameters (7) Hyperlipidemia Code(s): E78.5 - HYPERLIPIDEMIA, UNSPECIFIED Comment: Continue atorvastatin in subsitute for simvastatin. (8) Confined to bed Code(s): Z74.01 - BED CONFINEMENT STATUS Comment: Reportedly non-ambulatory secondary to MS (9) DVT prophylaxis Comment: SQ heparin Status and Disposition: OBV admit. Plan for LAMBERT.
[2017-11-26] MEDS ORDERED: Insulin LISPRO* 1 UNITS UNIT SUBCUT ONE (13:20)
[2017-11-26] MEDS: Atorvastatin* 20 MG TAB PO SCH (17:33)
[2017-11-26] MEDS: Levofloxacin TAB* 750 MG PO SCH (21:21)
[2017-11-27] MEDS: Tobramycin 0.3% OPHTH.SOL* 5 ML BOT (regular eye drops) LEFT EYE SCH ×5 (02:15→19:41)
[2017-11-27] MEDS: Heparin VIAL(*) 5000 UNITS/ML VIAL (FIVE THOUSAND) SUBCUT SCH ×2 (05:14→12:57)
[2017-11-27 06:33] LABS: ABS Basophils 0 10^3/ul (0-0.2); ABS Eosinophils 0 10^3/ul (0-0.6); ABS Lymphocytes 1.1 10^3/ul (1.0-4.8); ABS Monocytes 0.5 10^3/ul (0-0.8); ABS Neutrophils 2.7 10^3/ul (1.5-7.7); ABS Nucleated RBC 0 10^3/ul; Eosinophil % 0.9 % (0-6); Hematocrit 30 % (42-52); Hemoglobin 10.4 g/dl (14.0-18.0); Lymphocyte % 25.2 % (25-47); Mean Corpuscular HGB Conc 35 g/dl (31-36); Mean Corpuscular Hemoglobin 33 pg (27-31); Mean Corpuscular Volume 94 fL (80-94); Mean Platelet Volume 9 um3 (7.4-10.4); Nucleated Red Blood Cells % 0.1; Platelet Count 210 10^3/ul (150-450); Red Blood Count 3.16 10^6/ul (4.0-5.4); Red Cell Distribution Width 16 % (10.5-15); White Blood Count 4.4 10^3/ul (3.5-10.8)
[2017-11-27] MEDS: CMCS: Fenofibrate(NF) 145 MG TAB PO SCH (09:29)
[2017-11-27] MEDS: Senna TAB PO PRN (09:30)
[2017-11-27] MEDS: Aspirin EC TAB* 325 MG PO SCH (09:30)
[2017-11-27] MEDS: Atenolol TAB* 25 MG PO SCH (09:31)
[2017-11-27] MEDS: Lactobacillus Acidophilu (GG)* 1 CAP CAP PO SCH (09:31)
[2017-11-27] MEDS: CMCS: Pantoprazole TAB (NF) 40 MG TAB PO SCH (09:31)
[2017-11-27] MEDS: Citalopram TAB* 40 MG PO SCH (09:31)
[2017-11-27] MEDS: Oxybutynin TAB* 5 MG PO SCH ×2 (09:32→12:57)
[2017-11-27] MEDS: Baclofen TAB* 10 MG PO SCH ×2 (09:32→12:57)
[2017-11-27] MEDS: Insulin LISPRO* 1 UNITS UNIT SUBCUT SCH ×3 (09:32→19:41)
[2017-11-27] MEDS: Levofloxacin TAB* 750 MG PO SCH (09:33)
[2017-11-27] MEDS: Nystatin CREAM* 15 GM TUBE TOPICAL SCH (09:34)
[2017-11-27] MEDS: Ferrous Sulfate TAB* 325 MG PO SCH (12:56)
--- NOTE | 2017-11-27 13:33 | TRS ---
CC: Dr. Davila * DISCHARGE TRANSFER SUMMARY: DATE OF ADMISSION: 11/24/17 DATE OF TRANSFER: 11/27/17 PROVIDER: Madai Castillo NP ATTENDING PHYSICIAN: Dr. Altagracia Woodward * (as dictated by Madai Castillo NP). PRIMARY CARE PROVIDER: Dr. Samantha Davila. PRIMARY DISCHARGE DIAGNOSES: 1. Urinary tract infection, secondary to chronic indwelling catheter. 2. Bilateral conjunctivitis. 3. Severe protein-calorie malnutrition. 4. Physical deconditioning secondary to multiple sclerosis. SECONDARY DISCHARGE DIAGNOSES: 1. Multiple sclerosis, nonambulatory. 2. Neurogenic bladder secondary to multiple sclerosis. 3. Diabetes, type 2, diet controlled. 4. Hypertension. 5. Hyperlipidemia. 6. Benign prostatic hyperplasia. 7. Gastroesophageal reflux disease. MEDICATIONS AT DISCHARGE: 1. Levofloxacin 750 mg p.o. daily x3 additional days. 2. Tobramycin 0.3% ophthalmic solution drops, 2 drops to affected eye q.4 hours. 3. Sennosides 8.6 mg b.i.d. p.r.n. 4. Meclizine 25 mg q.8 hours p.r.n. 5. Ibuprofen 400 mg q.6 hours p.r.n. 6. Ferrous sulfate 325 mg daily. 7. Aspirin 325 mg daily. 8. Lactobacillus 1 capsule daily. 9. Alprazolam 0.25 mg t.i.d. p.r.n. 10. Pantoprazole 40 mg daily. 11. Fenofibrate 145 mg daily. 12. Baclofen 20 mg t.i.d. 13. Nystatin cream 1 application topical daily. 14. Ditropan 5 mg t.i.d. 15. Simvastatin 40 mg daily. 16. Citalopram 40 mg daily. 17. Atenolol 25 mg daily. 18. Acetaminophen 650 mg per rectum q.6 hours p.r.n. HOSPITAL COURSE OF STAY: For full details, please refer to the H and P provided by Dr. Hernandez. In summary, Mr. Beck presented to the ER initially for mild left upper extremity swelling, which improved spontaneously, and concern for runny eyes. When he was in the ER, it was noted that the patient apparently had insects and bedbugs present on his sheets and clothes, and there was concern for inadequate care at home. He was initially admitted with concern for UTI, secondary to neurogenic bladder. He was overdue for a catheter exchange, which was done on admission. The patient's urinary cultures are still pending, but have so far showed moderate amount of growth of pseudomonas and citrobacter. Blood cultures have been negative so far. Mr. Beck had a longstanding history of physical deconditioning, and patient and family are in agreement for a short-term placement for rehab at [facility]. I did have Nutrition to see the patient here secondary to his poor BMI and muscle wasting. He was recommended to continue on consistent carbohydrate diet. The patient could be moved to the regular diet, given that his sugars are well controlled if that would help with food intake. He should be on pureed textures and should be offered Ensure for protein supplementation. FOLLOWUP NEEDS: The patient needs followup on his urine culture results and sensitivities. He has preliminary growth of pseudomonas and citrobacter, but there is no antibiotic sensitivity yet available. Currently, he is on levofloxacin, but this may need to be changed once the sensitivities result. He did have a positive aerobic blood culture in 1 bottle with Staph epidermidis , which was thought to be contaminant. His next catheter change should be on , which will be 1 month from the previous change. DIET: Consistent carbohydrate, pureed texture diet. ACTIVITY: As tolerated. CONDITION: Guarded, but stable. DISPOSITION: To [facility]. TIME SPENT: Time spent on this discharge was approximately 45 minutes. This is only a brief summary of the patient's hospital course of stay. For full details, please refer to the full medical record. If you have any further questions or need further assistance, please feel free to contact me at [phone]. MADAI CASTILLO, REJI [id number]/[facility] #: [id number] LAURA
[2017-11-27 16:37] VITALS: BP 136/77
[2017-11-27] MEDS: Atorvastatin* 20 MG TAB PO SCH (19:41)
== END 2017-11-27 19:40 | DRG 698 ==
LOC: ED 16:28 → MEDTELE 22:51 → OBSVTOIN 11-25 09:30
PROVIDERS: ADMIT Hospitalist; ATTEND Internal Medicine
PROC: 0T2BX0Z Change Drainage Device in Bladder, External Approach (ICD-10-PCS; principal; 2017-11-25)
DX: T83.511A Infection and inflammatory reaction due to indwelling urethral catheter, initial encounter (principal); E43 Unspecified severe protein-calorie malnutrition; E11.51 Type 2 diabetes mellitus with diabetic peripheral angiopathy without gangrene; G35 Multiple sclerosis; E86.0 Dehydration; R64 Cachexia; Z68.1 Body mass index [BMI] 19.9 or less, adult; N31.9 Neuromuscular dysfunction of bladder, unspecified; N39.0 Urinary tract infection, site not specified; I10 Essential (primary) hypertension; E78.5 Hyperlipidemia, unspecified; N40.0 Benign prostatic hyperplasia without lower urinary tract symptoms; K21.9 Gastro-esophageal reflux disease without esophagitis; Z66 Do not resuscitate; Y73.1 Therapeutic (nonsurgical) and rehabilitative gastroenterology and urology devices associated with adverse incidents; M19.90 Unspecified osteoarthritis, unspecified site; F41.9 Anxiety disorder, unspecified; H10.9 Unspecified conjunctivitis; M62.50 Muscle wasting and atrophy, not elsewhere classified, unspecified site; Z87.891 Personal history of nicotine dependence; Z80.6 Family history of leukemia; Y92.9 Unspecified place or not applicable; Z87.442 Personal history of urinary calculi; Z83.3 Family history of diabetes mellitus; Z98.41 Cataract extraction status, right eye; Z74.01 Bed confinement status; Z23 Encounter for immunization; Z79.82 Long term (current) use of aspirin
CPT/HCPCS: 36415; 71045; 80048; 80053; 81003; 81015; 83036; 83605; 85025; 85610; 85730; 87040; 87077; 87086; 87150; 87186; 87205; 90732; 99284; A9270-GY; G0378; G8978-GP-CM; G8979-GP-CM; G8980-GP-CM; G8987-GO-CN; G8988-GO-CN; G8989-GO-CN; J1644; J1956

== ENCOUNTER 2018-02-25 11:23 | Inpatient (IN) | payer MEDICARE, BC, OTHER ==
[2018-02-25] MEDS ORDERED: NS 0.9% 1000 ML*IV.FLUID IV ONE (12:14)
[2018-02-25] MEDS ORDERED: Piperacillin/Tazobac ADVAN(*) 3.375 GM in NS 0.9% 100 ML* 100 ML IVPB ONE ×2 (12:14→15:09)
[2018-02-25] MEDS ORDERED: Ibuprofen TAB* 600 MG PO ONE (12:15)
[2018-02-25 12:39] LABS: Hematocrit 40 % (42-52); Hemoglobin 13.3 g/dl (14.0-18.0); Mean Corpuscular HGB Conc 34 g/dl (31-36); Mean Corpuscular Hemoglobin 32 pg (27-31); Mean Corpuscular Volume 95 fL (80-94); Platelet Count 206 10^3/ul (150-450); Red Blood Count 4.17 10^6/ul (4.0-5.4); Red Cell Distribution Width 14 % (10.5-15); White Blood Count 3.1 10^3/ul (3.5-10.8)
[2018-02-25 12:47] LABS: INR 1.05 (0.77-1.02)
--- NOTE | 2018-02-25 12:57 | RAD ---
HISTORY: Sepsis COMPARISONS: November 24 VIEWS: 1: frontal portable view of the chest at 12:34 PM FINDINGS: LINES AND TUBES: None. CARDIOMEDIASTINAL SILHOUETTE: The cardiomediastinal silhouette is normal for portable technique. PLEURA: The costophrenic angles are sharp. No pleural abnormalities are noted. LUNG PARENCHYMA: The lungs are clear. ABDOMEN: The upper abdomen is clear. There is no subphrenic gas. BONES AND SOFT TISSUES: No bone or soft tissue abnormalities are noted. IMPRESSION: NO ACTIVE CARDIOPULMONARY DISEASE.
[2018-02-25 13:06] LABS: EGFR Non-African American 196.8 (>60)
[2018-02-25 13:33] LABS: Monocytes % 1 % (0-7)
[2018-02-25] MEDS ORDERED: Ondansetron INJ* 2 MG/ML VIAL IV PRN (15:09)
[2018-02-25] MEDS ORDERED: Acetaminophen TAB* 325 MG PO PRN (15:09)
[2018-02-25] MEDS: NS 0.9% 1000 ML* 1,000 ML IV SCH (15:12)
[2018-02-25] MEDS ORDERED: Iodixanol* (CONTRAST) 320 MG/ML 100 ML SDV IV ONE (15:14)
[2018-02-25] MEDS ORDERED: NS 0.9% 1000 ML* 1,000 ML IV ONE (15:17)
[2018-02-25 15:19] LABS: Urine Appearance Cloudy; Urine Blood 3+ (Negative); Urine Color Yellow; Urine Ketones Negative (Negative); Urine Protein 1+(30 mg/dL) (Negative); Urine Specific Gravity 1.013 (1.010-1.030); Urine Urobilinogen Positive (Negative)
[2018-02-25] MEDS ORDERED: Zosyn per Pharmacy* NOTE FOLLOW UP SCH (16:00)
--- NOTE | 2018-02-25 16:00 | RAD ---
INDICATION: Abdominal pain COMPARISON: CT abdomen pelvis September 02, 2013 TECHNIQUE: Axial source images were obtained from the hemidiaphragms to the symphysis pubis following administration of intravenous contrast only as specified by the emergency department. Coronal and sagittal reconstructed images were acquired. Lung bases: There is mild bibasilar consolidative change which may reflect atelectasis. Suggest a follow-up chest x-ray as indicated. Liver: There is a subtle 1.6 cm lesion in anterior-medial segment of the left hepatic lobe near the dome. There is a complex multilobulated lesion in the lower pole of the right hepatic lobe measuring 4.1 x 3.2 cm. Neither lesion was documented previously. Gallbladder: The gallbladder is contracted. There are multiple gallstones. Gallstones were present previously. Spleen: The spleen is normal in size. There are no masses. Pancreas: There is no focal pancreatic mass or ductal dilatation. The pancreas appears mildly atrophic Adrenal glands: There is no evidence of adrenal mass. Kidneys: There is right-sided hydronephrosis and hydroureter which appears new. Formerly there was a right ureteral stent. There are also multiple calcifications in either a bladder diverticulum or in a dilated distal right ureter near the UVJ. On the left there is also moderate bilateral hydronephrosis and there is nephrolithiasis. The ureter is also dilated with multiple calcifications of dilated distal left ureter or bladder diverticulum. Adenopathy: There is no evidence of adenopathy by size criteria. Fluid collections: There are no free or localized fluid collections. Vessels:There are atherosclerotic changes involving the aorta and iliac vessels. There is no focal aneurysm. The IVC appears normal. GI tract: There is limited evaluation as no oral contrast was given. The upper GI tract is grossly normal. There is large amount stool throughout a redundant colon. There is stool and a distended rectal vault. Pelvic organs: The uterus and adnexa appear normal Bladder: The bladder is distended. There are bladder calculi. Abdominal and pelvic soft tissues: Diffuse edema compatible with anasarca. Osseous structures: There are no acute osseous findings. Other: None IMPRESSION: 1. Mild bibasilar consolidative changes. 2. There are new hepatic lesions. The dominant lesion is in the inferior right hepatic lobe. Suggest ultrasonographic evaluation to assess for possible ultrasound-guided biopsy. 3. Cholelithiasis. 4. Bilateral obstructive uropathy. Bilateral nephrolithiasis. Bladder and probable distal ureteral calculi. 5. Large amount retained stool with mildly distended colon. 6. Anasarca 7. Distended urinary bladder. Alarcon catheterization is likely required.
[2018-02-25] MEDS: Piperacillin/Tazobactam 13.5 GM IV 24 hour continuous infusion IVPB SCH ×2 (17:33)
--- NOTE | 2018-02-25 17:44 | RAD ---
INDICATION: Liver lesion. Nephrolithiasis. Hydronephrosis. COMPARISON: CT abdomen pelvis February 25, 2018; renal sonogram July 11, 2013 TECHNIQUE: Longitudinal and transverse scans of the right upper quadrant were obtained. Doppler interrogation of the hepatic and portal venous system was performed. FINDINGS: Liver: There is hepatomegaly with hepatic steatosis. There is a nonshadowing echogenic mass in the right hepatic lobe measuring 3.1 x 3.1 x 3.3 cm. This is probably the mass described previously but the mass appears larger and appears more echogenic on the current examination. There are no other masses. The liver measures 19.1 cm in cephalocaudal dimension. Vessels: There is normal hepatic and portal venous flow. Bile ducts: There is no evidence of intrahepatic or extrahepatic ductal dilatation. The common duct measures 0.3 cm. Gallbladder: There are multiple gallstones. There is no thickening gallbladder wall or pericholecystic fluid. Pancreas: The visualized pancreas appears normal Right kidney: There is right-sided hydronephrosis or multiple right renal cysts as also documented on the concurrent CT.. The right kidney measures 11.3 x 5.9 x 6.5 cm. IVC and aorta: The aorta and superior vena cava appear normal. Fluid: There is no ascites. Other: None. IMPRESSION: 1. Interval increase in size in an echogenic, nonshadowing right hepatic lobe mass. This shows relatively slow growth. This represents an indeterminate finding, however. 2. Hepatic steatosis. Hepatomegaly. 3. Right-sided hydronephrosis. Right renal calculi.
--- NOTE | 2018-02-25 19:36 | HP ---
CC: Silvia* HISTORY AND PHYSICAL: DATE OF ADMISSION: 02/25/18 PRIMARY CARE PROVIDER: Silvia. ATTENDING PHYSICIAN WHILE IN THE HOSPITAL: Dr. Altagracia Woodward * (report dictated by Melecio Lion NP). CHIEF COMPLAINT: 1. Lower abdominal pain. 2. Fever. HISTORY OF PRESENT ILLNESS: Mr. Beck is a 67-year-old male patient. He carries a history of MS, neurogenic bladder with chronic Alarcon. He is diabetic , which is diet controlled. He has a history of hypertension, hyperlipidemia, BPH, and GERD along with hypothyroidism. He comes in to our ER today. According to the patient, he says that nursing staff was concerned today because they noted that he had hematuria. He was having abdominal pain. His belly appeared to be more distended according to the nursing staff. He says he feels little bit more distended. In addition to this, he says he has been having fevers intermittently for the last couple of days. He denies having any cough or cold symptoms. He says he has not had a runny nose or sore throat, rhinorrhea. He has not been feeling short of breath. He has not had any chest discomfort, chest heaviness. There have been no reports of diarrhea or vomiting. He says that to his knowledge his urine has not appear more cloudy. He did not notice the hematuria himself, but this was reported to him and he says he is not having any abdominal pain now. He says the only time he has abdominal pain is when someone pushes on his stomach. The nursing staff was concerned at [facility], because they felt that his belly appeared to be more distended, they noted the hematuria, they changed his catheter this morning and they noted the fever today and they sent him to the ER to be evaluated. PAST MEDICAL HISTORY: Significant for: 1. MS. 2. Neurogenic bladder. 3. Diabetes, which is diet controlled. 4. Hypertension. 5. Hyperlipidemia. 6. BPH. 7. GERD. PAST SURGICAL HISTORY: 1. He has had back surgery. 2. I also do note that he has a surgical incision to his midline abdomen, that his thinks it is from the gallbladder resection. MEDICATIONS: Home meds include: 1. Tylenol 650 mg every 6 hours as needed. 2. Cipro 250 mg p.o. b.i.d. 3. Zocor 40 mg daily. 4. Synthroid 12.5 mcg daily. 5. Baclofen 20 mg p.o. t.i.d. 6. Ditropan 5 mg p.o. t.i.d. 7. Ensure 1 tablet p.o. t.i.d. 8. TriCor 145 mg p.o. daily. 9. Protonix 40 mg daily. 10. Culturelle 1 capsule daily. 11. Ferrous sulfate 325 mg daily. 12. Aspirin 325 mg p.o. daily. 13. Atenolol 25 mg daily. 14. Celexa 40 mg daily. ALLERGIES TO MEDICATIONS: Include no known drug allergies. FAMILY HISTORY: Unknown. He says his brother did have leukemia, but his parents do not know. SOCIAL HISTORY: He is a former smoker. He does not drink alcohol. He denies any recreational drugs. He is a full code. Surrogate decision maker is his . REVIEW OF SYSTEMS: There is a documented fever here of 100.4. He denied any weight change to me. He denied any double vision. No ear discharge. He denied any rhinorrhea. No sore throat. No thyroid enlargement. Denies any chest pain. There was no shortness of breath. He does admit to the abdominal pain when the stomach is pushed on. He denies having any nausea. He denied any vomiting or diarrhea. He again denies any loss of consciousness. No pruritus. No skin ulcerations. Review of 14 systems was completed, all others are negative. PHYSICAL EXAMINATION GENERAL: At this time, Mr. Beck is a 67-year-old male patient. He is chronically ill-appearing. He is sitting in the ED stretcher. He does not appear to be in any acute distress. VITAL SIGNS: Blood pressure 96/49, pulse 96, respirations were 20, O2 sat 95%, temperature 100.4. HEENT: Head: Atraumatic. Eyes: EOMs are intact. Sclerae anicteric. Throat : Oral mucosa appears to be dry. No oropharyngeal erythema. NECK: Supple. LUNGS: Clear to auscultation bilaterally. No wheezes, rales, or rhonchi. HEART: Sounds S1 and S2. He is tachycardic. ABDOMEN: It was mildly distended. There was tenderness in the left lower and suprapubic area to palpation. Bowel sounds are present. EXTREMITIES: He is unable to move his lower extremities because of MS. He has 3/5 strength in the upper extremities. No peripheral edema. NEUROLOGICAL: He is awake, alert, oriented x3. Again, bilateral lower extremity weakness. He had no gross focal deficits. His speech is clear. His tongue is midline. SKIN: Intact. He does have a stage I pressure ulcer to the sacrum and also noted to the right heel. Otherwise his skin is intact. DIAGNOSTIC STUDIES/LAB DATA: WBC 3.1, RBC 4.17, hemoglobin 13.3, hematocrit of 40, platelet count was 206. The INR was 1.05, PTT 29.7. Sodium 139, potassium 3.8, chloride 102, bicarb 27, BUN 23, creatinine 0.43, glucose 108, lactate 3.2, calcium 9.6. Total bili 0.6, AST 39, ALT 17, alk phos 97. Troponin 0.11. Albumin was 3.7. Urine is pending. He did have a chest x-ray obtained today, which when I reviewed, I do not appreciate any acute infiltrates or effusion. Radiology read it as no acute cardiopulmonary disease. He did have an EKG obtained today, which did show sinus tachycardia with a rate of 115. He had no ST elevation or T-wave inversions. It does appear that he has LVH. Reviewed to the previous EKG, it is similar, but the rate is faster now. Old medical records were reviewed. ASSESSMENT AND PLAN: Mr. Beck is a 67-year-old male patient with multiple medical problems coming in to the ED today with complaints of fever and again abdominal distention along with question of hematuria. We were asked to evaluate for admission. He will be admitted under inpatient status for: 1. Sepsis. Again, it is noted that his blood pressures have been trending down here in the ED. I am going to give him another liter of fluids wide open as he seems to be fluid responsive. His blood cultures have been sent. He has been given Zosyn. The obvious source could be urinary tract infection, but I am concerned on an abdominal exam that he looks mildly distended, in addition to this he was tender. So, I am going to get the CT of the abdomen and pelvis with IV contrast. We will follow this up. If we need to, we will get surgical input. We will hydrate him. Place him in the ICU due to the blood pressure being in the 90s. We will give him another liter of fluids, repeat the lactic acid, panculture him, and start him on Zosyn and see if we can identify a source. He does not appear to be tachypneic at this point. He appeared to be tolerating this well. 2. Multiple sclerosis. Continue with supportive care. 3. Neurogenic bladder. Catheter was changed today. 4. Diabetes. He is n.p.o. for the time being, it is diet controlled. I will put him on a regular diet and we will follow his morning glucoses. 5. Hypertension. In the setting of acute illness, we will hold his BP meds. 6. Hyperlipidemia. Continue with meds as prescribed. 7. Benign prostatic hyperplasia. Continue meds as prescribed. 8. Hypothyroidism. Continue his Synthroid. 9. Gastroesophageal reflux disease. Continue PPI therapy. 10. DVT prophylaxis. I will place him on heparin subcu as he is high risk for DVT. 11. Code status. Full code. 12. Fluids, electrolytes, and nutrition. N.p.o. pending CT abdomen and pelvis. TIME SPENT: On the admission was 60 minutes, greater than half the time was spent [id number] with the patient obtaining my history and physical, other half the time was spent going over the plan of care with the patient, implementing the plan of care. I did discuss the plan of care with my attending , Dr. Woodward; she is in agreement. MELECIO LION, REJI [id number]/[facility] #: [id number] LAURA
[2018-02-25] MEDS: Baclofen TAB* 20 MG PO SCH (21:40)
[2018-02-25] MEDS: Oxybutynin TAB* 5 MG PO SCH (21:40)
[2018-02-25] MEDS: Atorvastatin* 20 MG TAB PO SCH (21:40)
[2018-02-25] MEDS: Heparin VIAL(*) 5000 UNITS/ML VIAL (FIVE THOUSAND) SUBCUT SCH (21:40)
[2018-02-26] MEDS: NS 0.9% 1000 ML* 1,000 ML IV SCH (03:02)
[2018-02-26] MEDS: Levothyroxine TAB* 25 MCG TAB PO SCH (05:48)
[2018-02-26] MEDS: Heparin VIAL(*) 5000 UNITS/ML VIAL (FIVE THOUSAND) SUBCUT SCH ×3 (05:48→20:39)
[2018-02-26 06:12] LABS: ABS Basophils 0 10^3/ul (0-0.2); ABS Eosinophils 0.1 10^3/ul (0-0.6); ABS Lymphocytes 0.7 10^3/ul (1.0-4.8); ABS Monocytes 0.7 10^3/ul (0-0.8); ABS Neutrophils 5.4 10^3/ul (1.5-7.7); ABS Nucleated RBC 0 10^3/ul; Eosinophil % 1.5 % (0-6); Hematocrit 29 % (42-52); Hemoglobin 9.8 g/dl (14.0-18.0); Lymphocyte % 10.1 % (25-47); Mean Corpuscular HGB Conc 34 g/dl (31-36); Mean Corpuscular Hemoglobin 32 pg (27-31); Mean Corpuscular Volume 95 fL (80-94); Mean Platelet Volume 8.9 um3 (7.4-10.4); Nucleated Red Blood Cells % 0; Platelet Count 156 10^3/ul (150-450); Red Blood Count 3.03 10^6/ul (4.0-5.4); Red Cell Distribution Width 14 % (10.5-15); White Blood Count 6.9 10^3/ul (3.5-10.8)
[2018-02-26 06:19] LABS: INR 1.17 (0.77-1.02)
[2018-02-26 06:29] LABS: EGFR Non-African American 298.2 (>60)
[2018-02-26] MEDS: Potassium Chlor TAB* 20 MEQ TAB.ER PO SCH ×2 (09:42→13:12)
[2018-02-26] MEDS: Omeprazole CAP* 20 MG PO SCH (09:42)
[2018-02-26] MEDS: Oxybutynin TAB* 5 MG PO SCH ×3 (09:43→20:38)
[2018-02-26] MEDS: CMCS Fenofibrate(NF) 145 MG TAB PO SCH (09:43)
[2018-02-26] MEDS: Baclofen TAB* 20 MG PO SCH ×2 (09:43→13:13)
[2018-02-26] MEDS: Citalopram TAB* 40 MG PO SCH (09:43)
[2018-02-26] MEDS: Ferrous Sulfate TAB* 325 MG PO SCH (13:13)
--- NOTE | 2018-02-26 14:08 | PN ---
Subjective Date of Service: 02/26/18 Interval History: Pt is feeling ok. He denies any pain at this time. He states his pelvic distention and pain have resolved after his perez catheter was placed correctly. He denies any diarrhea. No SOB. Objective Active Medications: Acetaminophen (Tylenol Tab*) 650 mg PO Q4H PRN PRN Reason: FEVER/PAIN Aspirin (Ecotrin Ec Tab*) 325 mg PO DAILY [facility] Atorvastatin Calcium (Lipitor*) 20 mg PO 2100 [facility] Last Admin: 02/25/18 21:40 Dose: 20 mg Baclofen (Lioresal Tab*) 20 mg PO 0800,1300,2000 [facility] Last Admin: 02/26/18 13:13 Dose: 20 mg Citalopram Hydrobromide (Celexa Tab*) 40 mg PO DAILY [facility] Last Admin: 02/26/18 09:43 Dose: 40 mg Fenofibrate (Tricor(Nf)) 145 mg PO 0800 [facility] PRN Reason: Protocol Last Admin: 02/26/18 09:43 Dose: 145 mg Ferrous Sulfate (Ferrous Sulfate Tab*) 325 mg PO 1300 [facility] Last Admin: 02/26/18 13:13 Dose: 325 mg Heparin Sodium (Porcine) (Heparin Vial(*)) 5,000 units SUBCUT Q8HR [facility] Last Admin: 02/26/18 13:13 Dose: 5,000 units Sodium Chloride (Ns 0.9% 1000 Ml*) 1,000 mls @ 125 mls/hr IV PER RATE [facility] Last Admin: 02/26/18 03:02 Dose: 125 mls/hr Piperacillin Sod/Tazobactam (Sod 13.5 gm/ Sodium Chloride) 500 mls @ 20.833 mls /hr IVPB Q24H [facility] Last Admin: 02/25/18 17:33 Dose: 20.833 mls/hr Levothyroxine Sodium (Synthroid Tab*) 12.5 mcg PO DAILY@0600 [facility] Last Admin: 02/26/18 05:48 Dose: 12.5 mcg Omeprazole (Prilosec Cap*) 20 mg PO 0800 [facility] Last Admin: 02/26/18 09:42 Dose: 20 mg Ondansetron HCl (Zofran Inj*) 4 mg IV Q6H PRN PRN Reason: NAUSEA Oxybutynin Chloride (Ditropan Tab*) 5 mg PO 0800,1300,1999 [facility] Last Admin: 02/26/18 13:12 Dose: 5 mg Pharmacy Consult (Zosyn Per Pharmacy*) 1 note FOLLOW UP .ZOSYN PER PHARMACY [facility] Vital Signs - 8 hr 02/26/18 02/26/18 02/26/18 06:00 06:15 06:30 Temperature Pulse Rate 63 57 57 Respiratory 16 14 14 Rate Blood Pressure 112/64 103/58 95/56 (mmHg) O2 Sat by Pulse 96 96 96 Oximetry 02/26/18 02/26/18 02/26/18 06:45 07:00 07:15 Temperature 97.8 F Pulse Rate 57 59 56 Respiratory 13 21 16 Rate Blood Pressure 92/53 108/61 126/63 (mmHg) O2 Sat by Pulse 96 98 99 Oximetry 02/26/18 02/26/18 02/26/18 07:30 07:45 08:00 Temperature 97.8 F Pulse Rate 51 56 55 Respiratory 17 18 14 Rate Blood Pressure 103/57 115/61 103/60 (mmHg) O2 Sat by Pulse 96 97 97 Oximetry 02/26/18 02/26/18 02/26/18 08:01 08:15 08:31 Temperature Pulse Rate 55 54 62 Respiratory 16 15 25 Rate Blood Pressure 99/59 109/65 (mmHg) O2 Sat by Pulse 97 97 100 Oximetry 02/26/18 02/26/18 02/26/18 08:45 09:00 09:15 Temperature Pulse Rate 60 59 60 Respiratory 17 19 20 Rate Blood Pressure 117/63 118/63 114/66 (mmHg) O2 Sat by Pulse 98 98 97 Oximetry 02/26/18 02/26/18 02/26/18 09:30 09:45 10:00 Temperature Pulse Rate 59 60 67 Respiratory 21 20 27 Rate Blood Pressure 115/71 126/67 121/67 (mmHg) O2 Sat by Pulse 97 96 99 Oximetry 02/26/18 02/26/18 02/26/18 10:01 10:15 10:30 Temperature Pulse Rate 59 64 60 Respiratory 20 22 17 Rate Blood Pressure 111/71 127/66 (mmHg) O2 Sat by Pulse 96 97 98 Oximetry 02/26/18 02/26/18 02/26/18 10:45 11:00 11:15 Temperature Pulse Rate 56 62 57 Respiratory 15 19 16 Rate Blood Pressure 121/63 119/73 124/63 (mmHg) O2 Sat by Pulse 98 98 97 Oximetry 02/26/18 02/26/18 02/26/18 11:30 11:45 12:00 Temperature 97.9 F Pulse Rate 64 57 62 Respiratory 17 15 16 Rate Blood Pressure 102/60 105/60 123/62 (mmHg) O2 Sat by Pulse 95 97 97 Oximetry 02/26/18 02/26/18 02/26/18 12:01 12:15 12:30 Temperature Pulse Rate 60 60 60 Respiratory 12 21 18 Rate Blood Pressure 115/62 116/62 (mmHg) O2 Sat by Pulse 99 97 97 Oximetry 02/26/18 02/26/18 02/26/18 12:45 13:00 13:01 Temperature Pulse Rate 64 66 64 Respiratory 22 22 24 Rate Blood Pressure 123/58 123/63 (mmHg) O2 Sat by Pulse 98 96 98 Oximetry 02/26/18 13:15 Temperature Pulse Rate 71 Respiratory 21 Rate Blood Pressure 113/67 (mmHg) O2 Sat by Pulse 95 Oximetry Oxygen Devices in Use Now: None Appearance: Middle aged male lying flat in bed, NAD Eyes: No Scleral Icterus Ears/Nose/Mouth/Throat: Mucous Membranes Moist Respiratory: Symmetrical Chest Expansion and Respiratory Effort, Clear to Auscultation - anteriorly Cardiovascular: NL Sounds; No Murmurs; No JVD, RRR, - - 2-3+ edema to B/L LE edema Abdominal: NL Sounds; No Tenderness; No Distention Skin: - - taught skin over toes/feet, ?old blood under R 2nd toe, small ulcer at tip of L 2nd toe, Neurological: Alert and Oriented x 3 Result Diagrams: 02/26/18 06:00 02/26/18 06:00 Microbiology and Other Data: Microbiology 02/25/18 18:17 Nasal Screen MRSA (PCR)(PHIL) - Final Nasal Mrsa Not Detected Assess/Plan/Problems-Billing Mr Beck is a 67 yo M who has a h/o multiple sclerosis, diet controlled DM, neurogenic bladder, HTN and BPH who presented to the ER with c/o lower abdominal pain and fever and was found to have a markedly distended urinary bladder with significant hydronephrosis bilaterally. - Patient Problems (1) Bladder obstruction Current Visit: Yes Status: Acute Code(s): N32.0 - BLADDER-NECK OBSTRUCTION SNOMED Code(s): 72822792 Comment: Likely secondary to perez catheter being inserted into a false channel in the prostate. This has now been corrected by urology. Monitor urine output. (2) UTI (urinary tract infection) Current Visit: Yes Status: Acute Onset Date: 01/17/15 Comment: It is suspected with the obstructed bladder and fever the patient has a UTI. Continue zosyn and await urine culture. No further fever. The patient was in septic shock shorlty after admission but now resolved. Hypotension resolved. (3) Elevated troponin Current Visit: Yes Status: Acute Code(s): R74.8 - ABNORMAL LEVELS OF OTHER SERUM ENZYMES SNOMED Code(s): 567457238 Comment: Likely secondary to demand ischemia from septic shock. No further work up at this time. (4) Hypertension Current Visit: Yes Status: Chronic Code(s): I10 - ESSENTIAL (PRIMARY) HYPERTENSION SNOMED Code(s): 53508182 Comment: BP is now normal. Continue to hold atenolol for now. (5) Type 2 diabetes mellitus Current Visit: Yes Status: Chronic Comment: Diet controlled. Monitor with BMP checks. (6) Hyperlipidemia Current Visit: Yes Status: Chronic Code(s): E78.5 - HYPERLIPIDEMIA, UNSPECIFIED SNOMED Code(s): 40971844 Comment: Continue lipitor. (7) Multiple sclerosis Current Visit: Yes Status: Chronic Code(s): G35 - MULTIPLE SCLEROSIS SNOMED Code(s): 00050677 Comment: Continue supportive care. Continue baclofen. (8) History of BPH Current Visit: Yes Status: Chronic Code(s): Z87.438 - PERSONAL HISTORY OF OTHER DISEASES OF MALE GENITAL ORGANS SNOMED Code(s): 372566552 Comment: Continue indwelling perez. (9) DVT prophylaxis Current Visit: Yes Status: Acute Onset Date: 01/17/15 Code(s): UWX2687 - SNOMED Code(s): 538976448 Comment: SQ heparin (10) DNR (do not resuscitate) Current Visit: Yes Status: Acute
[2018-02-26] MEDS: Aspirin EC TAB* 325 MG PO SCH (16:51)
[2018-02-26] MEDS: Piperacillin/Tazobactam 13.5 GM IV 24 hour continuous infusion IVPB SCH ×2 (18:07)
[2018-02-26] MEDS: Baclofen TAB* 10 MG PO SCH (20:38)
[2018-02-26] MEDS: Atorvastatin* 20 MG TAB PO SCH (20:38)
[2018-02-27] MEDS: Baclofen TAB* 20 MG PO SCH (00:34)
[2018-02-27] MEDS: Levothyroxine TAB* 25 MCG TAB PO SCH (06:05)
[2018-02-27] MEDS: Heparin VIAL(*) 5000 UNITS/ML VIAL (FIVE THOUSAND) SUBCUT SCH ×3 (06:05→22:05)
[2018-02-27 06:10] LABS: Hematocrit 30 % (42-52); Hemoglobin 10.1 g/dl (14.0-18.0); Mean Corpuscular HGB Conc 34 g/dl (31-36); Mean Corpuscular Hemoglobin 32 pg (27-31); Mean Corpuscular Volume 94 fL (80-94); Mean Platelet Volume 8.6 um3 (7.4-10.4); Platelet Count 186 10^3/ul (150-450); Red Blood Count 3.17 10^6/ul (4.0-5.4); Red Cell Distribution Width 15 % (10.5-15); White Blood Count 4.4 10^3/ul (3.5-10.8)
[2018-02-27 06:21] LABS: EGFR Non-African American 234.1 (>60)
[2018-02-27] MEDS: Aspirin EC TAB* 325 MG PO SCH (09:31)
[2018-02-27] MEDS: CMCS Fenofibrate(NF) 145 MG TAB PO SCH (09:31)
[2018-02-27] MEDS: Citalopram TAB* 40 MG PO SCH (09:31)
[2018-02-27] MEDS: Oxybutynin TAB* 5 MG PO SCH ×3 (09:31→19:43)
[2018-02-27] MEDS: Omeprazole CAP* 20 MG PO SCH (09:31)
[2018-02-27] MEDS: Baclofen TAB* 10 MG PO SCH ×3 (09:31→19:43)
--- NOTE | 2018-02-27 11:39 | PN ---
Subjective Date of Service: 02/27/18 Interval History: Pt is feeling ok. He states he feels essentially normal. He denies any pain. He states he is eating/drinking well. Objective Active Medications: Acetaminophen (Tylenol Tab*) 650 mg PO Q4H PRN PRN Reason: FEVER/PAIN Aspirin (Ecotrin Ec Tab*) 325 mg PO DAILY [facility] Last Admin: 02/27/18 09:31 Dose: 325 mg Atorvastatin Calcium (Lipitor*) 20 mg PO 2100 [facility] Last Admin: 02/26/18 20:38 Dose: 20 mg Baclofen (Lioresal Tab*) 20 mg PO 0800,1300,2000 [facility] Last Admin: 02/27/18 09:31 Dose: 20 mg Citalopram Hydrobromide (Celexa Tab*) 40 mg PO DAILY [facility] Last Admin: 02/27/18 09:31 Dose: 40 mg Fenofibrate (Tricor(Nf)) 145 mg PO 0800 [facility] PRN Reason: Protocol Last Admin: 02/27/18 09:31 Dose: 145 mg Ferrous Sulfate (Ferrous Sulfate Tab*) 325 mg PO 1300 [facility] Last Admin: 02/26/18 13:13 Dose: 325 mg Heparin Sodium (Porcine) (Heparin Vial(*)) 5,000 units SUBCUT Q8HR [facility] Last Admin: 02/27/18 06:05 Dose: 5,000 units Piperacillin Sod/Tazobactam (Sod 13.5 gm/ Sodium Chloride) 500 mls @ 20.833 mls /hr IVPB Q24H [facility] Last Admin: 02/26/18 18:07 Dose: 20.833 mls/hr Levothyroxine Sodium (Synthroid Tab*) 12.5 mcg PO DAILY@0600 [facility] Last Admin: 02/27/18 06:05 Dose: 12.5 mcg Omeprazole (Prilosec Cap*) 20 mg PO 0800 [facility] Last Admin: 02/27/18 09:31 Dose: 20 mg Ondansetron HCl (Zofran Inj*) 4 mg IV Q6H PRN PRN Reason: NAUSEA Oxybutynin Chloride (Ditropan Tab*) 5 mg PO 0800,1300,2000 [facility] Last Admin: 02/27/18 09:31 Dose: 5 mg Pharmacy Consult (Zosyn Per Pharmacy*) 1 note FOLLOW UP .ZOSYN PER PHARMACY [facility] Vital Signs - 8 hr 02/27/18 02/27/18 02/27/18 03:43 07:22 07:35 Temperature 98.2 F 99.0 F Pulse Rate 64 63 Respiratory 20 20 18 Rate Blood Pressure 107/45 117/56 (mmHg) O2 Sat by Pulse 96 95 95 Oximetry 02/27/18 11:20 Temperature 98.2 F Pulse Rate 58 Respiratory 20 Rate Blood Pressure 126/56 (mmHg) O2 Sat by Pulse 97 Oximetry Oxygen Devices in Use Now: None Appearance: Middle aged male sitting up in recliner, NAD Eyes: No Scleral Icterus Ears/Nose/Mouth/Throat: Mucous Membranes Moist Respiratory: Symmetrical Chest Expansion and Respiratory Effort, Clear to Auscultation - anteriorly Cardiovascular: NL Sounds; No Murmurs; No JVD, RRR, - - 2+ LE edema Abdominal: NL Sounds; No Tenderness; No Distention Extremities: No Clubbing, Cyanosis Skin: No Nodules or Sclerosis Neurological: Alert and Oriented x 3 Result Diagrams: 02/27/18 05:51 02/27/18 05:51 Microbiology and Other Data: Microbiology 02/25/18 18:17 Nasal Screen MRSA (PCR)(PHIL) - Final Nasal Mrsa Not Detected Assess/Plan/Problems-Billing Mr Beck is a 67 yo M who has a h/o multiple sclerosis, diet controlled DM, neurogenic bladder, HTN and BPH who presented to the ER with c/o lower abdominal pain and fever and was found to have a markedly distended urinary bladder with significant hydronephrosis bilaterally. - Patient Problems (1) Bladder obstruction Current Visit: Yes Status: Acute Code(s): N32.0 - BLADDER-NECK OBSTRUCTION SNOMED Code(s): 30500999 Comment: Likely secondary to perez catheter being inserted into a false channel in the prostate. This has now been corrected by urology. Will need to follow up with as an outpatient in next 1-2 weeks. (2) UTI (urinary tract infection) Current Visit: Yes Status: Acute Onset Date: 01/17/15 Comment: It is suspected with the obstructed bladder and fever the patient has a UTI. Urine culture was negative but given his presentation will treat for a full 7 days. At this time the patient can go back to [facility]. Will try to discuss with the patient's . (3) Elevated troponin Current Visit: Yes Status: Acute Code(s): R74.8 - ABNORMAL LEVELS OF OTHER SERUM ENZYMES SNOMED Code(s): 979711237 Comment: Likely secondary to demand ischemia from septic shock. No further work up at this time. (4) Hypertension Current Visit: Yes Status: Chronic Code(s): I10 - ESSENTIAL (PRIMARY) HYPERTENSION SNOMED Code(s): 65192463 Comment: BP is now normal. Continue to hold atenolol indefinitly as his BP is normal and his HR si low normal. (5) Type 2 diabetes mellitus Current Visit: Yes Status: Chronic Comment: Diet controlled. Monitor with BMP checks. (6) Hyperlipidemia Current Visit: Yes Status: Chronic Code(s): E78.5 - HYPERLIPIDEMIA, UNSPECIFIED SNOMED Code(s): 11916947 Comment: Continue lipitor. (7) Multiple sclerosis Current Visit: Yes Status: Chronic Code(s): G35 - MULTIPLE SCLEROSIS SNOMED Code(s): 98860226 Comment: Continue supportive care. Continue baclofen. (8) History of BPH Current Visit: Yes Status: Chronic Code(s): Z87.438 - PERSONAL HISTORY OF OTHER DISEASES OF MALE GENITAL ORGANS SNOMED Code(s): 232651041 Comment: Continue indwelling perez. (9) DVT prophylaxis Current Visit: Yes Status: Acute Onset Date: 01/17/15 Code(s): KKB8911 - SNOMED Code(s): 336897533 Comment: SQ heparin (10) DNR (do not resuscitate) Current Visit: Yes Status: Acute
[2018-02-27] MEDS: Ferrous Sulfate TAB* 325 MG PO SCH (13:29)
[2018-02-27] MEDS: Piperacillin/Tazobactam 13.5 GM IV 24 hour continuous infusion IVPB SCH ×2 (17:23)
[2018-02-27] MEDS: Atorvastatin* 20 MG TAB PO SCH (19:43)
[2018-02-28] MEDS: Levothyroxine TAB* 25 MCG TAB PO SCH (05:56)
[2018-02-28] MEDS: Heparin VIAL(*) 5000 UNITS/ML VIAL (FIVE THOUSAND) SUBCUT SCH (05:56)
[2018-02-28 06:07] LABS: ABS Basophils 0 10^3/ul (0-0.2); ABS Eosinophils 0.1 10^3/ul (0-0.6); ABS Lymphocytes 1.1 10^3/ul (1.0-4.8); ABS Monocytes 0.5 10^3/ul (0-0.8); ABS Neutrophils 2.7 10^3/ul (1.5-7.7); ABS Nucleated RBC 0 10^3/ul; Eosinophil % 1.7 % (0-6); Hematocrit 31 % (42-52); Hemoglobin 10.7 g/dl (14.0-18.0); Lymphocyte % 24.5 % (25-47); Mean Corpuscular HGB Conc 34 g/dl (31-36); Mean Corpuscular Hemoglobin 32 pg (27-31); Mean Corpuscular Volume 94 fL (80-94); Mean Platelet Volume 8.4 um3 (7.4-10.4); Nucleated Red Blood Cells % 0; Platelet Count 181 10^3/ul (150-450); Red Blood Count 3.35 10^6/ul (4.0-5.4); Red Cell Distribution Width 14 % (10.5-15); White Blood Count 4.4 10^3/ul (3.5-10.8)
[2018-02-28] MEDS: Aspirin EC TAB* 325 MG PO SCH (07:48)
[2018-02-28] MEDS: Baclofen TAB* 10 MG PO SCH ×2 (07:48→12:53)
[2018-02-28] MEDS: Omeprazole CAP* 20 MG PO SCH (07:48)
[2018-02-28] MEDS: Citalopram TAB* 40 MG PO SCH (07:48)
[2018-02-28] MEDS: Oxybutynin TAB* 5 MG PO SCH ×2 (07:48→12:53)
[2018-02-28] MEDS: CMCS Fenofibrate(NF) 145 MG TAB PO SCH (08:42)
[2018-02-28 11:42] VITALS: BP 127/55
[2018-02-28] MEDS: Ferrous Sulfate TAB* 325 MG PO SCH (12:53)
--- NOTE | 2018-02-28 13:10 | DS ---
CC: Provider at [facility] * DISCHARGE SUMMARY: DATE OF ADMISSION: 02/25/18 DATE OF DISCHARGE: 02/28/18 PRIMARY CARE PROVIDER: Provider at [facility]. PRINCIPAL DIAGNOSES: 1. Septic shock from unclear source. 2. Misplacement of Alarcon catheter with resultant marked bladder distension and hydroureter and hydronephrosis. SECONDARY DIAGNOSES: 1. Multiple sclerosis. 2. Neurogenic bladder with chronic indwelling Alarcon. 3. Type 2 diabetes - diet controlled. 4. Hypertension. 5. Hyperlipidemia. 6. Gastroesophageal reflux disease. DISCHARGE MEDICATIONS: 1. Tylenol 650 mg p.o. q. 6 hours p.r.n. pain. 2. Simvastatin 40 mg p.o. q.h.s. 3. Synthroid 12.5 mcg p.o. daily. 4. Baclofen 20 mg p.o. 8 a.m. , 1 p.m. and 8 p.m. 5. Oxybutynin 5 mg p.o. 8 a.m., 1 p.m. and 8 p.m. 6. Ensure 1 p.o. t.i.d. 7. Fenofibrate 140 mg p.o. daily. 8. Protonix 40 mg p.o. daily. 9. Lactobacillus 1 cap p.o. daily. 10. Ferrous sulfate 325 mg p.o. daily. 11. Aspirin 325 mg p.o. daily. 12. Celexa 40 mg p.o. daily. 13. Augmentin 875 mg p.o. daily x15 doses. HOSPITAL COURSE: Mr. Beck is a 67-year-old male who presented to the emergency room on 02/25/18 with complaints of abdominal pain and fever. The patient was ultimately found to have a markedly distended bladder with a Alarcon catheter in a false channel within the prostate. The patient's Alarcon catheter was removed and replaced by Dr. Chris from Urology. The patient had appropriate urine output following this. The patient was felt to, however, be in septic shock likely secondary to urinary tract infection; however, his urine culture ultimately came up negative. Given his fever of 104 on presentation along with hypotension on admission which is now resolved, the patient will continue on Augmentin 875 mg p.o. twice daily for another 15 doses. The patient at this point appears quite well. He is, per him, back to his baseline. He denies any pain. At this point, I recommend that only a urologist change the patient's Alarcon catheter. He should follow up with Dr. Chris in the next 1 to 2 weeks as there is questionable obstruction at the distal ureter. PHYSICAL EXAMINATION: On the day of discharge, the patient is awake, he is alert. He is sitting up in bed. He is in no acute distress. His cardiac exam reveals a normal S1, S2, regular rate and rhythm. No murmurs are heard. He has 2 to 3+ bilateral lower extremity pitting edema. Lungs are clear anteriorly. Abdomen: Bowel sounds present. Abdomen: Soft, nontender, nondistended. The patient will continue on all of his usual home medications without change. FOLLOWUP CONCERNS: The patient is being discharged to [facility] today 02/28/18. ACTIVITY LEVEL: As tolerated. DIET: Regular, mechanical soft. CONDITION ON DISCHARGE: Stable. TIME SPENT: 35 minutes was spent discharging this patient. [id number]/[facility] #: [id number] LAURA
--- NOTE | 2018-03-02 12:22 | ED ---
Tony Figueredo Stephanie, scribed for López Singh MD on 02/25/18 at 1222 . Abdominal Pain/Male - HPI Summary HPI Summary: The pt is a 67 y/o M BIBA to the ED with c/o abd pain that began at 02/25/18 at 10:00. Symptoms include fever and hematuria. The pt denies cough and sores. Pt noted to be febrile 104.0 (rectal) on arrival. The states the pt is at [facility] because she is unable to care for him and she has difficulty turning the pt to clean him. - History of Current Complaint Chief Complaint: EDAbdPain Stated Complaint: ABD PAIN Time Seen by Provider: 02/25/18 11:41 Hx Obtained From: Patient, Family/Assessment Counselor - Onset/Duration: Gradual Onset, Lasting Days - 1, Still Present Timing: Constant Severity Currently: Mild Pain Intensity: 5 Pain Scale Used: 0-10 Numeric Location: Suprapubic Radiates: No Aggravating Factor(s): Nothing Alleviating Factor(s): Nothing Associated Signs And Symptoms: Positive: Fever, Other - hematuria - Allergies/Home Medications Allergies/Adverse Reactions: Allergies Allergy/AdvReac Type Severity Reaction Status Date / Time No Known Allergies Allergy Verified 12/08/16 08:29 Home Medications: Home Medications Acetaminophen TAB* [Tylenol TAB*] 650 mg PO Q6H PRN 02/25/18 [History Confirmed 02/25/18] Atenolol TAB* [Tenormin TAB* 25 MG] 25 mg PO DAILY 02/25/18 [History Confirmed 02/25/18] Baclofen TAB* [Lioresal TAB*] 20 mg PO 0800,1300,199902/25/18 [History Confirmed 02/25/18] Ciprofloxacin TAB* [Cipro 250 MG Tab*] 250 mg PO BID 02/25/18 [History Confirmed 02/25/18] Citalopram TAB* [CeleXA TAB*] 40 mg PO DAILY 02/25/18 [History Confirmed ] Fenofibrate(NF) [Tricor(NF)] 145 mg PO 0800 02/25/18 [History Confirmed 02/25/18 ] Ferrous Sulfate TAB* 325 mg PO 1300 02/25/18 [History Confirmed 02/25/18] Lactobacillus Rhamnosus GG [Culturelle] 1 cap PO 0800 02/25/18 [History Confirmed 02/25/18] Lactose-Reduced Food [Ensure Original] 237 ml PO TID 02/25/18 [History Confirmed 02/25/18] Levothyroxine TAB* [Synthroid TAB*] 12.5 mcg PO 0600 02/25/18 [History Confirmed 02/25/18] Pantoprazole TAB (NF) [Protonix TAB (NF)] 40 mg PO 0800 02/25/18 [History Confirmed 02/25/18] PMH/Surg Hx/FS Hx/Imm Hx Endocrine/Hematology History: Reports: Hx Diabetes Cardiovascular History: Reports: Hx Hypercholesterolemia, Hx Hypertension, Hx Peripheral Vascular Disease - POOR LOWER LEG CIRCULATION, Other Cardiovascular Problems/Disorders - CHOLESTEROL CONTROL WITH MEDS Denies: Hx Pacemaker/ICD GI History: Reports: Hx Gastroesophageal Reflux Disease - CONTROL WITH MED, Hx Gastrointestinal Bleed, Other GI Disorders - COLON CA History: Reports: Hx Kidney Infection, Hx Kidney Stones - HX OF, Other Problems/Disorders - HYDRONEPHROSIS AND PYLONEPHROSIS, chronic perez Musculoskeletal History: Reports: Hx Arthritis, Other Musculoskeletal History - MS Sensory History: Reports: Hx Cataracts - RIGHT EYE, SURGERY DONE, Hx Contacts or Glasses - READING GLASSES Denies: Hx Glaucoma, Hx Hearing Aid Opthamlomology History: Reports: Hx Cataracts - RIGHT EYE, SURGERY DONE, Hx Contacts or Glasses - READING GLASSES Denies: Hx Glaucoma Neurological History: Reports: Hx Developmental Delay, Other Neuro Impairments/ Disorders - MS Psychiatric History: Reports: Hx Anxiety Denies: Hx Panic Disorder - Cancer History Cancer Type, Location and Year: colon cancer? Hx Chemotherapy: No - Surgical History Surgery Procedure, Year, and Place: CATARACTS RIGHT EYE, 1997, [facility] [place],. HERNIATED DISC, , [facility]. 2009 DIAG LAPAROSCOPY, LAPAROTOMY WITH SMALL BOWEL MESENTERIC MASS RESECTION, [facility]. 06/2013 CYSTOSCOPY, BILATERAL RETROGRADE, URETEROSCOPY, FRAGMENTATION AND REMOVAL LEFT URETERAL CALCULUS, BILATERAL STENT INSERTION, [facility]. 08/2013 CYSTOSCOPY, BILATERAL STENT REMOVAL, [facility]. 08/2015 CYSTOSCOPY, URETHERAL DILATION, FRAGMENT OF BLADDER CALCULI, REMOVAL OF SUPRAPUBIC CATHETER, [facility]. 10/2016 CYSTOSCOPY, URETHRAL DILATION, INSERTION OF TUNUNAK TIP CATHETER, [facility] [place] Hx Anesthesia Reactions: No - Immunization History Date of Tetanus Vaccine: Unk Date of Influenza Vaccine: Fall 2013 Infectious Disease History: Unable to Obtain/Confirm Infectious Disease History: Denies: Traveled Outside the [place] in Last 30 Days - Family History Known Family History: Positive: Diabetes Family History: Denies FHx prostate cancer - Social History Occupation: Disabled Lives: With Family Alcohol Use: None Hx Substance Use: No Substance Use Type: Reports: None Hx Tobacco Use: Yes Smoking Status (MU): Former Smoker Type: Cigarettes Have You Smoked in the Last Year: No Review of Systems Positive: Fever. Negative: Chills Negative: Erythema Negative: Sore Throat Negative: Chest Pain Negative: Shortness Of Breath, Cough Positive: Abdominal Pain. Negative: Vomiting, Nausea Positive: hematuria. Negative: dysuria Negative: Myalgia, Edema Negative: Rash Psychological: Other - Negative: dizziness All Other Systems Reviewed And Are Negative: Yes Physical Exam - Summary Physical Exam Summary: Constitutional: Well-developed, Well-nourished, Alert. (-) Distressed Skin: Warm, Dry HENT: Normocephalic; Atraumatic, dry mucus membranes Eyes: Conjunctiva normal Neck: Musculoskeletal ROM normal neck. (-) JVD, (-) Stridor, (-) Tracheal deviation Cardio: Rhythm regular, rate normal, Heart sounds normal; Intact distal pulses; The pedal pulses are 2+ and symmetric. Radial pulses are 2+ and symmetric. (-) Murmur Pulmonary/Chest wall: Effort normal. (-) Respiratory distress, (-) Wheezes, (-) Rales Abd: Soft, suprapubic tenderness, (-) Distension, (-) Guarding, (-) Rebound Musculoskeletal: (-) Edema Lymph: (-) Cervical adenopathy Neuro: Alert, Oriented x3 Psych: Mood and affect Normal Triage Information Reviewed: Yes Vital Signs On Initial Exam: Initial Vitals Pulse Pulse Ox 120 94 02/25/18 11:38 02/25/18 11:38 Vital Signs Reviewed: Yes Diagnostics - Vital Signs Vital Signs Temp Pulse Resp BP Pulse Ox 02/25/18 12:00 117 28 119/52 94 02/25/18 11:55 117 24 123/59 94 02/25/18 11:47 104.0 F 118 24 123/59 94 02/25/18 11:38 120 94 - Laboratory Result Diagrams: 02/25/18 12:02 02/25/18 12:02 Lab Statement: Any lab studies that have been ordered have been reviewed, and results considered in the medical decision making process. - Radiology CXR Xray Interpretation: No Acute Changes Radiology Interpretation Completed By: Radiologist - NO ACTIVE CARDIOPULMONARY DISEASE. ED physician has reviewed this report. - EKG 12:22 Cardiac Rate: Tachycardia EKG Rhythm: Sinus Tachycardia - 115 BPM EKG Interpretation: No STEMI Re-Evaluation - Re-Evaluation First Eval Re-Evaluation Time: 14:45 Change: Unchanged Abdominal Pain Fem Course/Dx - Course Course Of Treatment: The pt is hemodynamically stable given suprapubic tenderness, acute hematuria and sepsis. - Diagnoses Provider Diagnoses: UTI (urinary tract infection), Sepsis, Indwelling Perez catheter present - Provider Notifications Discussed Care Of Patient With: Altagracia Woodward Time Discussed With Above Provider: 14:41 Instructed by Provider To: Admit As Inpatient Discharge - Sign-Out/Discharge Documenting (check all that apply): Discharge - Discharge Plan Condition: Stable Disposition: ADMITTED TO [facility] Referrals: Samantha Davila MD [Primary Care Provider] - The documentation as recorded by the Tony slaughter Stephanie accurately reflects the service I personally performed and the decisions made by , López Singh MD.
== END 2018-02-28 16:05 | DRG 871 ==
LOC: ED 11:23 → ICU 16:35 → MED 02-26 17:34
PROVIDERS: ADMIT Internal Medicine; ATTEND Hospitalist
PROC: 0T7D7ZZ Dilation of Urethra, Via Natural or Artificial Opening (ICD-10-PCS; principal; 2018-02-25)
PROC: 0T9B70Z Drainage of Bladder with Drainage Device, Via Natural or Artificial Opening (ICD-10-PCS; 2018-02-25)
DX: A41.9 Sepsis, unspecified organism (principal); R65.21 Severe sepsis with septic shock; N13.4 Hydroureter; N13.30 Unspecified hydronephrosis; N39.0 Urinary tract infection, site not specified; N32.89 Other specified disorders of bladder; T83.028A Displacement of other urinary catheter, initial encounter; X58.XXXA Exposure to other specified factors, initial encounter; G35 Multiple sclerosis; N31.9 Neuromuscular dysfunction of bladder, unspecified; E11.9 Type 2 diabetes mellitus without complications; I10 Essential (primary) hypertension; E78.5 Hyperlipidemia, unspecified; K21.9 Gastro-esophageal reflux disease without esophagitis; N40.0 Benign prostatic hyperplasia without lower urinary tract symptoms; R74.8 Abnormal levels of other serum enzymes; N32.0 Bladder-neck obstruction; E03.9 Hypothyroidism, unspecified; Z79.1 Long term (current) use of non-steroidal anti-inflammatories (NSAID); Z79.82 Long term (current) use of aspirin; Z79.899 Other long term (current) drug therapy; Z80.6 Family history of leukemia; Z87.891 Personal history of nicotine dependence
CPT/HCPCS: 36415; 71045; 74177; 76705; 80048; 80053; 81003; 81015; 83605; 84484; 85025; 85027; 85610; 85730; 87040; 87086; 87502; 87641; 93005; 99285; A9270-GY; J1644; J2543; Q9967

== ENCOUNTER 2018-03-17 05:56 | Day surgery (SDC) | payer MEDICARE, BC, MEDICAID ==
[~2018-03-17 05:56] MED LIST changes: +Buffered Lidocaine 0.9% SYRIN* 5 ML/SYR SYRINGE INTRADERM ONE; -Buffered Lidocaine 1% SYR 3ML* 3 ML/SYR SYRINGE INTRADERM ONE; -Buffered Lidocaine 1% SYR 3ML* 3 ML/SYR SYRINGE ONE; -Dexamethasone IV* 4 MG/ML 1 ML (4 MG) IV SLOW PU ONE; -Dexamethasone IV* 4 MG/ML 1 ML (4 MG) ONE; -DiMENhydriNATE IV* 50 MG/ML VIAL IV PUSH PRN; -Famotidine IV* 10 MG/ML 2 ML (20 mg) IV ONE; -Famotidine IV* 10 MG/ML 2 ML (20 mg) ONE; -Gentamicin ADULT (*) 140 MG in NS 0.9% 100 ML* 100 ML IVPB ONE; -Ketorolac INJ* 30 MG/ML 1 ML VIAL ONE; -Lidocaine 1% INJ* 10 MG/ML 30 ML SDV ONE; -Ondansetron INJ* 2 MG/ML VIAL ONE; -Propofol* 10 MG/ML 20 ML BTL IV PUSH ONE; -cefTRIAXone(*) 2 GM ADDV.VIAL IVPB ONE; -fentaNYL* 50 MCG/ML 2 ML VIAL (100 MCG VIAL) IV PRN; -fentaNYL* 50 MCG/ML 2 ML VIAL (100 MCG VIAL) ONE
[2018-03-17] MEDS ORDERED: Famotidine TAB* 20 MG PO ONE (06:00)
[2018-03-17] MEDS ORDERED: Famotidine TAB* 20 MG ONE (06:08)
[2018-03-17] MEDS ORDERED: Buffered Lidocaine 0.9% SYRIN* 5 ML/SYR SYRINGE ONE (06:09)
[2018-03-17] MEDS ORDERED: cefTRIAXone(*) 2 GM ADDV.VIAL IVPB ONE (06:09)
[2018-03-17] MEDS ORDERED: Gentamicin ADULT (*) 120 MG in NS 0.9% 100 ML* 100 ML IVPB ONE (07:00)
[2018-03-17] MEDS ORDERED: fentaNYL* 50 MCG/ML 2 ML VIAL (100 MCG VIAL) ONE (07:18)
[2018-03-17] MEDS ORDERED: Midazolam* 1 MG/ML 5 ML VIAL (5 MG) ONE (07:19)
[2018-03-17] MEDS ORDERED: Propofol* 10 MG/ML 20 ML BTL IV PUSH ONE (08:01)
[2018-03-17] MEDS ORDERED: Ondansetron INJ* 2 MG/ML VIAL ONE (08:01)
[2018-03-17] MEDS ORDERED: Dexamethasone IV* 4 MG/ML 1 ML (4 MG) ONE (08:01)
[2018-03-17] MEDS ORDERED: Ketorolac INJ* 30 MG/ML 1 ML VIAL ONE (08:01)
[2018-03-17] MEDS ORDERED: Acetaminophen IV 1GM/100ML * 1,000 MG/100 ML VIAL IVPB ONE (08:03)
[2018-03-17] MEDS ORDERED: DiMENhydriNATE IV* 50 MG/ML VIAL IV PUSH PRN (08:03)
[2018-03-17] MEDS ORDERED: HYDROmorphone INJ* 1 MG/ML CARPUJECT SYRINGE IV PRN (08:03)
[2018-03-17] MEDS ORDERED: Naloxone* 0.4 MG/ML 1 ML VIAL IV PRN (08:03)
[2018-03-17] MEDS ORDERED: Surgical Lubricant STERILE* 120 GM TOP.GEL ONE (08:06)
[2018-03-17] MEDS ORDERED: Acetaminophen IV 1GM/100ML * 100 ML ONE (08:59)
[2018-03-17] MEDS ORDERED: Furosemide IV* 10 MG/ML 2 ML VIAL (20 MG) ONE (09:42)
[2018-03-17 10:59] VITALS: BP 151/89
--- NOTE | 2018-03-17 11:50 | OP ---
CC: Dr. Davila* OPERATIVE REPORT: DATE OF OPERATION: 03/17/18 - [facility] DATE OF : 48 SURGEON: Marvin Chris MD ANESTHESIOLOGIST: Dr. Helms. ANESTHESIA: General. PRE-OP DIAGNOSES: 1. Urethral stricture. 2. Bladder calculi. 3. Benign prostatic hyperplasia. 4. Neurogenic bladder. POST-OP DIAGNOSES: 1. Urethral stricture. 2. Bladder calculi. 3. Benign prostatic hyperplasia. 4. Neurogenic bladder. OPERATIVE PROCEDURE: Cystoscopy, internal urethrotomy, transurethral incision of bladder neck and transurethral incision of prostate and fragmentation and removal of bladder calculi. COMPLICATIONS: None. CATHETER USED: 26-Nigerien Alarcon. INDICATIONS: Tevin Beck is a 67-year-old gentleman with neurogenic bladder , urethral strictures and recurrent calculi. OPERATIVE FINDINGS: 1. Multiple urethral strictures. 2. Stricture at bladder neck with irregular regrowth of prostatic tissue. 3. Multiple bladder calculi and diverticula. POSTOPERATIVE CONDITION: Stable. DESCRIPTION OF PROCEDURE: After induction of general anesthesia, the patient was placed in dorsal lithotomy position. Sequential compression devices were in place and functioning. Initial cystoscopy revealed multiple strictures in the bulbar urethra. Using the internal urethrotome, these were incised at the 12 o'clock position. The patient appeared status post resection of prostate at some remote point in time with some asymmetric regrowth and some strictures in the proximal urethra and bladder neck. Using the resectoscope with the right angle knife electrode, transurethral incision of the bladder neck and of the prostate was carried out. A little bit of the prostate tissue had to be resected, which was done using the loop resectoscope. Next, attention was directed to the bladder. There were multiple diverticula and multiple bladder calculi. The larger calculi were fragmented and all of the calculi were irrigated out using the [employer] evacuator. At the end of the procedure, a 26-Nigerien Alarcon catheter was introduced without difficulty and connected to a drainage bag. The patient tolerated the procedure satisfactorily and was transferred back to the recovery area in stable condition. [id number]/[facility] #: [id number] [facility]
== END 2018-03-17 11:27 | disposition home or self-care (01) ==
LOC: OR 05:56
PROVIDERS: ATTEND Urology
DX: N35.9 Urethral stricture, unspecified (principal); N21.0 Calculus in bladder; N40.0 Benign prostatic hyperplasia without lower urinary tract symptoms; N31.9 Neuromuscular dysfunction of bladder, unspecified; N32.3 Diverticulum of bladder; Z87.891 Personal history of nicotine dependence; E03.9 Hypothyroidism, unspecified; G35 Multiple sclerosis; E11.9 Type 2 diabetes mellitus without complications; E78.5 Hyperlipidemia, unspecified; I10 Essential (primary) hypertension
CPT/HCPCS: 82365; 88305; A9270-GY; J0696; J1100; J1580; J1885; J1940; J2250; J2405; J2704; J3010

== ENCOUNTER 2018-11-07 14:46 | Inpatient (IN) | payer MEDICARE, BC, OTHER ==
[2018-11-07] MEDS ORDERED: NS 0.9% 1000 ML* 1,000 ML IV ONE (15:14)
--- NOTE | 2018-11-07 15:23 | ED ---
GI/ HPI - HPI Summary HPI Summary: Pt is a 68 y/o male who presents to the ED c/o abdominal pain. He has a Perez catheter in place, and hasnt been able to urinate in 4 days. Bladder scan upon arrival showed greater than 1 L of fluid. Pt is sent from [facility] because he is bed-bound due to MS. [facility] staff attempted to irrigate the Perez last night and this morning and were only able to get 75 ml. He rates his pain as a 10/10 in severity. PMHx kidney stones, kidney infection, BPH, hydronephrosis, and pyelonephritis. - History of Current Complaint Time Seen by Provider: 11/07/18 14:48 Stated Complaint: ABD PAIN Hx Obtained From: Patient, Medical Records Onset/Duration: Started Days Ago - 4, Still Present Timing: Constant Current Severity: Severe Pain Intensity: 10 Location of Pain: LUQ, LLQ Associated Signs and Symptoms: Positive: Abdominal Pain, Other: - urinary retention Aggravating Factor(s): Liquids - Perez catheter not working Alleviating Factor(s): Nothing - Additional Pertinent History Primary Care Physician: SHAMIKA - Allergy/Home Medications Allergies/Adverse Reactions: Allergies Allergy/AdvReac Type Severity Reaction Status Date / Time No Known Allergies Allergy Verified 03/17/18 06:15 PMH/Surg Hx/FS Hx/Imm Hx Endocrine/Hematology History: Reports: Hx Diabetes - diet controlled, Hx Thyroid Disease - on medication, Hx Anemia - Iron deficiency Cardiovascular History: Reports: Hx Hypercholesterolemia, Hx Hypertension, Hx Peripheral Vascular Disease - POOR LOWER LEG CIRCULATION Denies: Hx Pacemaker/ICD, Other Cardiovascular Problems/Disorders Respiratory History: Denies: Other Respiratory Problems/Disorders GI History: Reports: Hx Gastroesophageal Reflux Disease - on medication, Hx Gastrointestinal Bleed, Other GI Disorders - COLON CA, Constipation History: Reports: Hx Kidney Infection, Hx Kidney Stones - HX OF, Other Problems/Disorders - HYDRONEPHROSIS & PYELONEPHROSIS,chronic perez-neurogenic bladder,BPH Musculoskeletal History: Reports: Hx Arthritis, Other Musculoskeletal History - Multiple Sclerosis, Dysphagia, difficulty speaking Sensory History: Reports: Hx Cataracts, Hx Contacts or Glasses - READING GLASSES Denies: Hx Glaucoma, Hx Hearing Aid Opthamlomology History: Reports: Hx Cataracts, Hx Contacts or Glasses - READING GLASSES Denies: Hx Glaucoma Neurological History: Reports: Hx Developmental Delay, Hx Nerve Disease - Multiple Sclerosis, Other Neuro Impairments/Disorders - Benign Paroxysmal Vertigo Psychiatric History: Reports: Hx Anxiety Denies: Hx Panic Disorder - Cancer History Cancer Type, Location and Year: colon cancer? Hx Chemotherapy: No - Surgical History Surgery Procedure, Year, and Place: CATARACTS RIGHT EYE, [place], [facility] [place] HERNIATED DISC, , [facility] [place]. 2009 DIAG LAPAROSCOPY, LAPAROTOMY WITH SMALL BOWEL MESENTERIC MASS RESECTION, [facility] [place]. 06/2013 CYSTOSCOPY, BILATERAL RETROGRADE, URETEROSCOPY, FRAGMENTATION AND REMOVAL LEFT URETERAL CALCULUS, BILATERAL STENT INSERTION, [facility] [place]. 08/2013 CYSTOSCOPY, BILATERAL STENT REMOVAL, [facility] [place]. 08/2015 CYSTOSCOPY, URETHERAL DILATION, FRAGMENT OF BLADDER CALCULI, REMOVAL OF SUPRAPUBIC CATHETER, [facility] [place]. 10/2016 CYSTOSCOPY, URETHRAL DILATION, INSERTION OF [place] TIP CATHETER, [facility] [place] Hx Anesthesia Reactions: No - per EMR [facility] [place] of 2012 - Immunization History Date of Tetanus Vaccine: Unk Date of Influenza Vaccine: Fall 2013 Infectious Disease History: No Infectious Disease History: Denies: Traveled Outside the [place] in Last 30 Days - Family History Known Family History: Positive: Diabetes Family History: Denies FHx prostate cancer - Social History Alcohol Use: None Hx Substance Use: No Substance Use Type: Reports: None Hx Tobacco Use: Yes Smoking Status (MU): Former Smoker Type: Cigarettes Have You Smoked in the Last Year: No Review of Systems Positive: Abdominal Pain Positive: other - urinary retention All Other Systems Reviewed And Are Negative: Yes Physical Exam - Summary Physical Exam Summary: Appearance: Well appearing, no pain distress Skin: warm, dry, reflects adequate perfusion Head/face: normal Eyes: EOMI, KIM ENT: mucous membranes moist Neck: supple, non-tender Respiratory: CTA, breath sounds diminished Cardiovascular: tachycardic, pulses symmetrical Abdomen: soft, midline surgical scar, grossly distended bladder to umbilicus, Perez catheter in place with no urine output, diffuse tenderness of lower abdomen Bowel Sounds: present Musculoskeletal: contractured extremities Neuro: normal, sensory motor intact, alert and oriented to person only Triage Information Reviewed: Yes Vital Signs On Initial Exam: Initial Vitals Temp Pulse Resp BP Pulse Ox 99.6 F 109 22 181/99 93 11/07/18 14:49 11/07/18 14:49 11/07/18 14:49 11/07/18 14:49 12/16/18 14:49 Vital Signs Reviewed: Yes Diagnostics - Vital Signs Vital Signs Temp Pulse Resp BP Pulse Ox 11/07/18 14:49 99.6 F 109 22 181/99 93 - Laboratory Result Diagrams: 11/07/18 15:34 11/07/18 15:34 Lab Statement: Any lab studies that have been ordered have been reviewed, and results considered in the medical decision making process. GIGU Course/Dx - Course Course Of Treatment: Nurse's note reviewed. Patient with chronic debilitating MS with chronic, indwelling Perez catheter. He has not had urine output in approximately 3 days. His bladder is grossly distended with bladder scan greater then 1000. We had difficulty removing the Perez catheter. There was blood and johana purulence that came out with the catheter. He shows sepsis vital signs but has a normal temperature, WBC, lactate. IV Rocephin, Cipro given to cover Escherichia coli plus pseudomonas. Urine culture sent. Urinalysis was not felt to be valuable given the discoloration with blood and johana purulence. He will be admitted for further. - Diagnoses Differential Diagnoses - Male: Other - Urinary retention, UTI, mechanical complication Provider Diagnoses: Sepsis, UTI (urinary tract infection), Urinary retention, Obstructed Perez catheter, DNR (do not resuscitate) - Physician Notifications Discussed Care Of Patient With: Altagracia Woodward Time Discussed With Above Provider: 16:00 Instructed by Provider To: Admit As Inpatient Discharge - Sign-Out/Discharge Documenting (check all that apply): Patient Departure - Admit - Discharge Plan Condition: Fair Disposition: ADMITTED TO [facility] Referrals: Samantha Davila MD [Primary Care Provider] - - Billing Disposition and Condition Condition: FAIR Disposition: Admitted to [facility] - Attestation Statements Document Initiated by Scribe: Yes Documenting Scribe: Fiona Nieto Provider For Whom Scribe is Documenting (Include Credential): Erasto Chambers MD Scribe Attestation: Fiona Figueredo scribed for Erasto Chambers MD on 11/07/18 at 1614. Scribe Documentation Reviewed: Yes Provider Attestation: The documentation as recorded by the Fiona slaughter accurately reflects the service I personally performed and the decisions made by me, Erasto Chambers MD Status of Scribe Document: Viewed
[2018-11-07] MEDS ORDERED: Ciprofloxacin 400MG IVPREMIX(* 400 MG/200 ML BAG IVPB ONE (15:30)
[2018-11-07] MEDS ORDERED: cefTRIAXone(*) 1 GM in NS 0.9% 50 ML* 50 ML IVPB ONE (15:36)
[2018-11-07 15:42] LABS: Hematocrit 40 % (42-52); Hemoglobin 13.9 g/dl (14.0-18.0); Mean Corpuscular HGB Conc 35 g/dl (31-36); Mean Corpuscular Hemoglobin 32 pg (27-31); Mean Corpuscular Volume 92 fL (80-94); Mean Platelet Volume 8.3 fL (7.4-10.4); Platelet Count 309 10^3/ul (150-450); Red Blood Count 4.36 10^6/ul (4.00-5.40); Red Cell Distribution Width 14 % (10.5-15); White Blood Count 9.4 10^3/ul (3.5-10.8)
[2018-11-07 15:59] LABS: BUN/Creatinine Ratio 58.3 (8-20); Calcium 9.4 mg/dL (8.6-10.3); EGFR Non-African American 172.8 (>60); Potassium 3.8 mmol/L (3.5-5.0)
[2018-11-07 16:49] LABS: ABS Basophils 0 10^3/ul (0-0.2); ABS Eosinophils 0.1 10^3/ul (0-0.6); ABS Lymphocytes 1.1 10^3/ul (1.0-4.8); ABS Neutrophils 7.2 10^3/ul (1.5-7.7); ABS Nucleated RBC 0 10^3/ul; Eosinophil % 1.4 %; Lymphocyte % 11.2 %; Nucleated Red Blood Cells % 0
[2018-11-07] MEDS ORDERED: Acetaminophen TAB* 325 MG PO PRN (17:34)
[2018-11-07] MEDS ORDERED: traMADol TAB* 50 MG PO PRN (18:22)
[2018-11-07] MEDS: Cefepime 1 GM in Dextrose(*) 1 GM/50 ML BAG IV SCH (19:00)
[2018-11-07] MEDS: NS 0.9% 1000 ML* 1,000 ML IV SCH (19:24)
[2018-11-07] MEDS: Heparin VIAL(*) 5000 UNITS/ML VIAL (FIVE THOUSAND) SUBCUT SCH (20:52)
[2018-11-07] MEDS: Oxybutynin TAB* 5 MG PO SCH (20:52)
[2018-11-07] MEDS: Atorvastatin* 10 MG TAB PO SCH (20:52)
[2018-11-07] MEDS: Baclofen TAB* 20 MG PO SCH (20:52)
[2018-11-07] MEDS ORDERED: ENSURE PLUS PO SCH (21:00)
--- NOTE | 2018-11-08 02:46 | HP ---
CC: Silvia * HISTORY AND PHYSICAL: DATE OF ADMISSION: 11/07/18 PROVIDER: Su Easton NP. PRIMARY CARE PROVIDER: Silvia. ATTENDING PHYSICIAN WHILE IN THE HOSPITAL: Dr. Altagracia Woodward * (dictated by Su Easton NP). CHIEF COMPLAINT: 1. Lower abdominal pain. 2. Difficulty with urination. HISTORY OF PRESENT ILLNESS: Mr. Beck is a 68-year-old male who carries a past medical history of MS, neurogenic bladder with chronic Alarcon placement, diabetes which is diet-controlled, hypertension, hyperlipidemia, BPH, GERD, hypothyroidism, who presents to the emergency room today with complaints of lower abdominal pain and difficulty with urination. The patient states that he has had difficulty with urination, low urinary output for approximately three days. The patient does report some fevers at home. Denies any loss of appetite. Denies any chest pain or edema. Denies any cough, hemoptysis, or shortness of breath. Denies any nausea or vomiting. He does report lower suprapubic abdominal pain, which has resolved since Alarcon was changed. He denies any gross hematuria. Does report lower abdominal pain and pain with urination, with chronic Alarcon placement. He does have generalized lower extremity weakness that is chronic from his MS. Visual complaints, none. No dysphagia. No increased joint or muscle aches. No rashes or lesions. No psychosis or anxiety. PAST MEDICAL HISTORY: Significant for: 1. MS. 2. Diabetes which is diet-controlled. 3. Hypertension. 4. Hyperlipidemia. 5. GERD. 6. BPH. 7. Neurogenic bladder. PAST SURGICAL HISTORY: 1. History of back surgery. 2. History of abdominal surgery. 3. Question bowel resection. HOME MEDICATIONS: 1. Tramadol 50 mg p.o. q.6 hours as needed. 2. Artificial tears 2 drops both eyes daily. 3. Ensure Plus 1 bottle p.o. t.i.d. 4. Simvastatin 10 mg p.o. q.p.m. 5. Levothyroxine 50 mcg p.o. at 6 a.m. 6. Milk of magnesia 15 mL as needed. 7. Tylenol 650 mg p.o. q.6 hours as needed. 8. Pantoprazole 40 mg p.o. q.a.m. 9. Citalopram 40 mg p.o. q.a.m. 10. Aspirin 325 mg p.o. daily. 11. Oxybutynin 5 mg p.o. at 0800, 1300 and 1999. 12. Ferrous sulfate 325 at 1300. 13. Fenofibrate 145 mg p.o. at 8 a.m. 14. Baclofen 20 mg at 0800, 1300, and 1999. ALLERGIES: No known drug allergies. FAMILY HISTORY: He reports father with a history of coronary artery disease and diabetes. No reported history of cancer within the family. SOCIAL HISTORY: The patient reports that he quit smoking. He denies any alcohol or recreational drug use. His surrogate decision maker is his . He is a full code. REVIEW OF SYSTEMS: He does report fevers. Denies loss of appetite. Denies chest pain or edema. Denies any cough, hemoptysis, or shortness of breath. Denies any nausea, vomiting, or diarrhea. He does report lower suprapubic abdominal pain, which resolved after Alarcon change. No gross hematuria. Does report painful urination and lower abdominal pain, burning. Does report generalized lower extremity weakness due to MS that is chronic. No visual changes. Denies any dysphagia. Denies any arthralgias, myalgias, rashes, lesions, psychosis, or anxiety. PHYSICAL EXAMINATION GENERAL: At this time, Mr. Beck is a 68-year-old male who appears chronically ill, lying on the stretcher in the emergency room. He does not appear to be in any acute distress. He is alert and oriented x3. VITAL SIGNS: Blood pressure 110/54, heart rate is 98, respirations are 22, temp was 99.6, and O2 sat 94% on room air. HEENT: Head is atraumatic, normocephalic. EOMs are intact. Sclerae are anicteric and not pale. Oral mucosa appears to be moist. NECK: Supple. LUNGS: Clear to auscultation bilaterally. No wheezes, rales, or rhonchi. CARDIAC: S1 and S2. Regular rate and rhythm. No murmurs, rubs or gallops. ABDOMEN: Soft. Mild tenderness to the suprapubic area with palpation. Bowel sounds are active x4. EXTREMITIES: The patient is unable to move his lower extremities due to MS. He has 3/5 strength to the upper extremities. Handgrips are equal. He has got +2 pitting edema to bilateral lower extremities. NEUROLOGIC: He is awake, alert, and oriented x3. Again, he is unable to move his bilateral lower extremities. He had no gross focal deficits. Speech is clear. Tongue is midline. SKIN: Intact. DIAGNOSTIC STUDIES AND LABORATORY DATA: WBCs are 9.4, RBCs 4.36, hemoglobin 13.9, hematocrit is 40, platelet count is 309. Sodium 138, potassium 3.8, chloride 105, carbon dioxide is 28. Anion gap is 5. BUN was 28, creatinine 0.48. Glucose was 116. Lactic acid 0.9, calcium 9.4. Urine culture is currently pending. I have ordered a renal ultrasound that is currently pending. ASSESSMENT AND PLAN: Mr. Beck is a 68-year-old male with a history of multiple sclerosis, neurogenic bladder, diabetes, hypertension, hyperlipidemia, benign prostatic hyperplasia, and gastroesophageal reflux disease, who presented to the emergency room with lower abdominal pain, and trouble urinating x3 days. Upon Alarcon change in the emergency room, he was to have a large amount of pus draining from the bladder, so we were asked to see and evaluate him for admission. He will be admitted under observation status for: 1. Suspect urinary tract infection. The patient has a history of neurogenic bladder. He initially did have a bladder scan on arrival to the emergency room which showed greater than 1000 mL and given the patient's decreased urinary output, the Alarcon was removed and changed. It was noted that while in the emergency room, he did have a large blood clot that was dislodged and purulent, bloody foul- smelling drainage when his old Alarcon was removed. At this time, the patient does have a history of E. coli with multidrug resistance. In the past, it has been susceptible to cefepime. I will place him on cefepime 1 g twice daily q.12 hours. His urinary culture is currently pending. His BUN is mildly elevated. I will also get a renal and bladder ultrasound to rule out obstruction; that is currently pending. 2. Multiple sclerosis. We will continue with his medications as previously prescribed and supportive care. We will continue his baclofen. 3. Hypertension. We will continue to monitor his blood pressure. He is not currently taking any blood pressure medications at home. 4. Hyperlipidemia. We will continue him on simvastatin at 10 mg. 5. Benign prostatic hyperplasia. We will continue him on oxybutynin as previously prescribed. 6. Hypothyroid. He will continue his levothyroxine at 50 mcg as previously prescribed. 7. Gastroesophageal reflux disease. We will continue on pantoprazole as previously prescribed. 8. Depression. Continue on his Celexa as previously prescribed. 9. DVT prophylaxis. I will place him on heparin subcutaneous as he is at high risk for DVT. 10. Code status. He is full code. 11. Fluid, electrolytes, nutrition. He will be placed on a heart-healthy pureed diet. TIME SPENT: Time spent on this admission was 60 minutes, greater than half of that time was spent [id number] with the patient obtaining my history and physical, the other half of the time was spent going over my plan of care and implementing my plan of care. I have discussed with my attending, Dr. Altagracia Woodward, and she is in agreement with my plan. SU EASTON, REJI [id number]/CPS #: [id number] LAURA
[2018-11-08] MEDS: NS 0.9% 1000 ML* 1,000 ML IV SCH ×2 (05:00→14:01)
[2018-11-08] MEDS: Heparin VIAL(*) 5000 UNITS/ML VIAL (FIVE THOUSAND) SUBCUT SCH ×3 (05:01→21:26)
[2018-11-08] MEDS: Cefepime 1 GM in Dextrose(*) 1 GM/50 ML BAG IV SCH ×2 (05:01→17:36)
[2018-11-08] MEDS: Levothyroxine TAB* 25 MCG TAB PO SCH (05:01)
[2018-11-08 07:03] LABS: ABS Basophils 0.2 10^3/ul (0-0.2); ABS Eosinophils 0.2 10^3/ul (0-0.6); ABS Lymphocytes 1.1 10^3/ul (1.0-4.8); ABS Monocytes 0.4 10^3/ul (0-0.8); ABS Neutrophils 3.8 10^3/ul (1.5-7.7); ABS Nucleated RBC 0 10^3/ul; Hematocrit 34 % (42-52); Hemoglobin 11.5 g/dl (14.0-18.0); Lymphocyte % 20.1 %; Mean Corpuscular HGB Conc 34 g/dl (31-36); Mean Corpuscular Hemoglobin 32 pg (27-31); Mean Corpuscular Volume 93 fL (80-94); Mean Platelet Volume 8.5 fL (7.4-10.4); Nucleated Red Blood Cells % 0; Platelet Count 240 10^3/ul (150-450); Red Blood Count 3.63 10^6/ul (4.00-5.40); Red Cell Distribution Width 14 % (10.5-15); White Blood Count 5.7 10^3/ul (3.5-10.8)
[2018-11-08 07:22] LABS: BUN/Creatinine Ratio 48.6 (8-20); Calcium 8.5 mg/dL (8.6-10.3); EGFR Non-African American 233.4 (>60); Potassium 3.6 mmol/L (3.5-5.0)
[2018-11-08] MEDS: Artificial Tears* 15 ML BTL BOTH EYES SCH (09:41)
[2018-11-08] MEDS: Aspirin TAB* 325 MG PO SCH (09:41)
[2018-11-08] MEDS: Oxybutynin TAB* 5 MG PO SCH ×3 (09:42→19:18)
[2018-11-08] MEDS: CMCS Pantoprazole TAB (NF) 40 MG TAB PO SCH (09:43)
[2018-11-08] MEDS: Baclofen TAB* 20 MG PO SCH ×3 (09:43→19:18)
[2018-11-08] MEDS: Citalopram TAB* 40 MG PO SCH (09:43)
[2018-11-08] MEDS ORDERED: Calcium Carbonate CHEW TAB* 500 MG (TUMS) PO PRN (10:05)
--- NOTE | 2018-11-08 11:32 | PN ---
Subjective Date of Service: 11/08/18 Interval History: Mr. Beck reports an upset stomach with indigestion and requests tums. He denies other complaint. He denies lower abdominal pain. He is amenable for discharge back to [facility]. Objective Active Medications: Acetaminophen (Tylenol Tab*) 650 mg PO Q4H PRN Aspirin (Aspirin Tab*) 325 mg PO DAILY GLENN Atorvastatin Calcium (Lipitor*) 5 mg PO QPM GLENN Baclofen (Lioresal Tab*) 20 mg PO 0800,1300,2000 GLENN Calcium Carbonate (Tums*) 500 mg PO Q4H PRN Citalopram Hydrobromide (Celexa Tab*) 40 mg PO 0800 GLENN Ferrous Sulfate (Ferrous Sulfate Tab*) 325 mg PO 1300 GLENN Heparin Sodium (Porcine) (Heparin Vial(*)) 5,000 units SUBCUT Q8HR GLENN Cefepime HCl (Maxipime 1 Gm In Dextrose Duplex (*)) 1 gm in 50 mls @ 100 mls/ hr IV Q12H GLENN Sodium Chloride (Ns 0.9% 1000 Ml*) 1,000 mls @ 100 mls/hr IV PER RATE GLENN Levothyroxine Sodium (Synthroid Tab*) 50 mcg PO 0600 GLENN Oxybutynin Chloride (Ditropan Tab*) 5 mg PO 0800,1300,2000 GLENN Pantoprazole Sodium (Protonix Tab (Nf)) 40 mg PO QAM GLENN Polyvinyl Alcohol (Polyvinyl Alcohol 1.4% Opth*) 2 drop BOTH EYES DAILY GLENN Tramadol HCl (Ultram*) 50 mg PO Q6H PRN Vital Signs: Temp Pulse Resp BP Pulse Ox 98.2 F 85 16 116/71 93 11/08/18 07:59 11/08/18 07:59 11/08/18 08:00 11/08/18 07:59 11/08/18 07:59 Oxygen Devices in Use Now: None Appearance: Male lying in bed in NAD Eyes: No Scleral Icterus Ears/Nose/Mouth/Throat: Mucous Membranes Moist Neck: Trachea Midline Respiratory: Symmetrical Chest Expansion and Respiratory Effort, Clear to Auscultation Cardiovascular: NL Sounds; No Murmurs; No JVD, No Edema Abdominal: NL Sounds; No Tenderness; No Distention Extremities: No Edema Skin: No Rash or Ulcers Neurological: Alert and Oriented x 3 Nutrition: Taking PO's Result Diagrams: 11/08/18 06:42 11/08/18 06:42 Microbiology and Other Data: Microbiology 11/07/18 16:05 Urine Culture - Preliminary Urine Escherichia Coli Enterococcus Faecalis 11/07/18 19:33 Nasal Screen MRSA (PCR) - Final Nasal Mrsa Not Detected Assess/Plan/Problems-Billing Assessment: Mr. Beck is a 68 yo M with a history of MS and neurogenic bladder with known bladder calculi who follows with Dr. Chris who was admitted with lower abdominal pain and non-functioning catheter found to have bladder outlet obstruction with debris and calculi in bladder, without signs of sepsis, s/p perez replacement. - Patient Problems (1) Bladder outlet obstruction Comment: - S/P perez replacement - Urine culture positive but no sign of systemic illness, ? colonization with chronic perez - Plan for short course abx, follow up closely with Dr. Chris (2) Hyperlipidemia Comment: - Continue lipitor. (3) Multiple sclerosis Comment: - Continue supportive care. Continue baclofen. (4) Hypothyroid Comment: - Continue levothyroxine (5) DVT prophylaxis Comment: - SQ heparin (6) DNR (do not resuscitate) Status and Disposition: OBV. Discharge to [facility].
--- NOTE | 2018-11-08 12:45 | DS ---
CC: Providers at [facility] * DISCHARGE SUMMARY: DATE OF ADMISSION: 11/07/18 DATE OF DISCHARGE: 11/08/18 ATTENDING PHYSICIAN: Yessi Gee MD * (dictation provided by Sylvia Bertrand NP ). PRIMARY DIAGNOSES: 1. Bladder outlet obstruction with bladder calculi and chronic indwelling Alarcon. 2. Urinary tract infection. SECONDARY DIAGNOSES: 1. History of multiple sclerosis with neurogenic bladder and chronic indwelling Alarcon. 2. History of hypertension, not currently on medications. 3. History of diabetes, not on medications. 4. Depression. 5. Hyperlipidemia. 6. Gastroesophageal reflux disease. 7. Benign prostatic hyperplasia. PAST SURGICAL HISTORY: 1. History of back surgery. 2. History of abdominal surgery. 3. Question of bowel resection. MEDICATIONS AT THE TIME OF DISCHARGE: 1. Augmentin 875 mg p.o. b.i.d. x7 days. 2. Tramadol 50 mg p.o. q.6 hours p.r.n. 3. Artificial Tears 2 drops both eyes daily. 4. Ensure Plus 1 bottle p.o. t.i.d. 5. Simvastatin 10 mg p.o. q.p.m. 6. Levothyroxine 50 mcg p.o. daily. 7. Milk of magnesia 15 mL p.o. as needed. 8. Tylenol 650 mg p.o. as needed. 9. Pantoprazole 40 mg p.o. q.a.m. 10. Citalopram 40 mg p.o. daily. 11. Aspirin 325 mg p.o. daily. 12. Oxybutynin 5 mg p.o. t.i.d. 13. Ferrous sulfate 325 mg p.o. daily. 14. Fenofibrate 145 mg p.o. daily. 15. Baclofen 20 mg p.o. t.i.d. 16. Calcium carbonate 500 mg p.o. q.4 hours p.r.n. HOSPITAL COURSE: Mr. Beck is a 68-year-old male with past medical history of multiple sclerosis, neurogenic bladder, and chronic indwelling Alarcon as well as a history of known bladder calculi, who follows with Dr. Chris, who presented to the hospital on 11/07/18 with concern for lower abdominal pain and difficulty with urination. Please see dictated H and P from Su Jemma, MOHS SURGEON/GENERAL DERMATOLOGIST, for complete details. The patient reported he had difficulty with urination , low urine output for approximately 3 days. In the emergency room, he had labs that showed no leukocytosis. He had no fever and his creatinine was normal. His lactic acid was 0.9. He did have an abdomen and bladder ultrasound that confirmed a bladder outlet obstruction with debris and bladder calculi in the bladder. Alarcon was replaced and broad spectrum antibiotics were started with cefepime. Mr. Beck is doing well today. He has had no fever. He continues to have no leukocytosis. He is asymptomatic and states his abdominal pain has resolved since the new Alarcon was placed. Since the patient shows no signs of sepsis or systemic illness, suspected that he likely has bladder outlet obstruction due to calculi. He is at high risk for urinary tract infection because of this and did have a positive urine culture with E. coli greater than 100,000. Plan is to complete the 7-day course of antibiotics and to recommend very close followup with Dr. Chris as soon as it can be scheduled for followup and treatment of his bladder calculi. Mr. Beck is medically stable for discharge back to [facility]. DISPOSITION: [facility]. DIET: Low fat, low carb. ACTIVITY: As tolerated. FOLLOWUP PLANS: 1. Please follow up with Dr. Chris within the next 7 to 10 days regarding bladder outlet obstruction with bladder calculi and chronic indwelling Alarcon. 2. Please follow up with the providers at [facility] per routine for all other comorbid medical conditions. TIME SPENT: Approximately 60 minutes were spent on the discharge of this patient, more than half the time was spent with the patient at the bedside reviewing the events leading up to this hospitalization, performing physical examination, reviewing my plan of care. SYLVIA BERTRAND NP [id number]/CPS #: [id number] ADDENDUM: Reviewed recent abdominal xray obtained outpatient with [facility] nursing staff. Concern for severe constipation and need for aggressive bowel regimen and possible CT abd if regimen is not successful. Patient tolerating po intake well and denies abdominal pain. Based on xray findings, discharge held. [facility]
[2018-11-08] MEDS ORDERED: Bisacodyl SUPP* 10 MG SUPP PR ONE (13:09)
[2018-11-08] MEDS: Polyethylene Glycol 3350* 17 GM PACKET PO SCH ×2 (13:48→19:18)
[2018-11-08] MEDS: Ferrous Sulfate TAB* 325 MG PO SCH (13:48)
[2018-11-08] MEDS ORDERED: Sodium Phosphate ADULT ENEMA* 118 ml bottle PR ONE (17:00)
[2018-11-08] MEDS: Atorvastatin* 10 MG TAB PO SCH (17:36)
[2018-11-08] MEDS ORDERED: Polyethylene Glycol 3350* 17 GM PACKET PO SCH (21:00)
[2018-11-09] MEDS: NS 0.9% 1000 ML* 1,000 ML IV SCH (00:47)
[2018-11-09] MEDS: Cefepime 1 GM in Dextrose(*) 1 GM/50 ML BAG IV SCH ×2 (05:05→17:34)
[2018-11-09] MEDS: Heparin VIAL(*) 5000 UNITS/ML VIAL (FIVE THOUSAND) SUBCUT SCH ×3 (05:06→20:39)
[2018-11-09] MEDS: Levothyroxine TAB* 25 MCG TAB PO SCH (05:07)
--- NOTE | 2018-11-09 07:43 | PN ---
Subjective Date of Service: 11/09/18 Interval History: Mr. Beck reports that he has had some semi-formed bowel movements today. He initially denies abdominal pain but does have pain with palpation to the right middle quadrant. He denies other complaint including chest pain, SOB, or nausea. He is tolerating oral intake well. Objective Active Medications: Acetaminophen (Tylenol Tab*) 650 mg PO Q4H PRN Aspirin (Aspirin Tab*) 325 mg PO DAILY GLENN Atorvastatin Calcium (Lipitor*) 5 mg PO QPM GLENN Baclofen (Lioresal Tab*) 20 mg PO 0800,1300,2000 GLENN Calcium Carbonate (Tums*) 500 mg PO Q4H PRN Citalopram Hydrobromide (Celexa Tab*) 40 mg PO 0800 GLENN Ferrous Sulfate (Ferrous Sulfate Tab*) 325 mg PO 1300 GLENN Heparin Sodium (Porcine) (Heparin Vial(*)) 5,000 units SUBCUT Q8HR GLENN Cefepime HCl (Maxipime 1 Gm In Dextrose Duplex (*)) 1 gm in 50 mls @ 100 mls/ hr IV Q12H GLENN Sodium Chloride (Ns 0.9% 1000 Ml*) 1,000 mls @ 100 mls/hr IV PER RATE GLENN Levothyroxine Sodium (Synthroid Tab*) 50 mcg PO 0600 GLENN Oxybutynin Chloride (Ditropan Tab*) 5 mg PO 0800,1300,2000 GLENN Pantoprazole Sodium (Protonix Tab (Nf)) 40 mg PO QAM GLENN Polyvinyl Alcohol (Polyvinyl Alcohol 1.4% Opth*) 2 drop BOTH EYES DAILY GLENN Tramadol HCl (Ultram*) 50 mg PO Q6H PRN Vital Signs: Temp Pulse Resp BP Pulse Ox 97.9 F 78 18 134/76 95 11/09/18 03:54 11/09/18 03:54 11/09/18 03:54 11/09/18 03:54 11/09/18 03:54 Oxygen Devices in Use Now: None Appearance: Male lying in bed in NAD Eyes: No Scleral Icterus Ears/Nose/Mouth/Throat: Mucous Membranes Moist Neck: Trachea Midline Respiratory: Symmetrical Chest Expansion and Respiratory Effort, Clear to Auscultation Cardiovascular: NL Sounds; No Murmurs; No JVD, No Edema Abdominal: - - Soft, tenderness to palpation in the right middle quadrant, soft , BS + Extremities: No Edema Skin: No Rash or Ulcers Neurological: Alert and Oriented x 3 Nutrition: Taking PO's Result Diagrams: 11/08/18 06:42 11/08/18 06:42 Microbiology and Other Data: Microbiology 11/07/18 16:05 Urine Culture - Preliminary Urine Escherichia Coli Enterococcus Faecalis 11/07/18 19:33 Nasal Screen MRSA (PCR) - Final Nasal Mrsa Not Detected Assess/Plan/Problems-Billing Assessment: Mr. Beck is a 68 yo M with a history of MS and neurogenic bladder with known bladder calculi who follows with Dr. Chris who was admitted with lower abdominal pain and non-functioning catheter found to have bladder outlet obstruction with debris and calculi in bladder, without signs of sepsis, s/p perez replacement, kept overnight due to concern for severe constipation now s/ p several bowel movements. - Patient Problems (1) Constipation Comment: - Small bowel movements but repeat xray shows severe constipation with a large amount of stool in the rectal vault. - Increase efforts at aggressive bowel evacuation with addition of lactulose and repeat enema today. (2) Bladder outlet obstruction Comment: - S/P perez replacement - Urine culture positive but no sign of systemic illness, ? colonization with chronic perez - Plan for short course abx, follow up closely with Dr. Chris (3) Hyperlipidemia Comment: - Continue lipitor. (4) Multiple sclerosis Comment: - Continue supportive care. Continue baclofen. (5) Hypothyroid Comment: - Continue levothyroxine (6) DVT prophylaxis Comment: - SQ heparin (7) DNR (do not resuscitate) Status and Disposition: INpatient. Anticipate discharge back to [facility] when medically stable.
[2018-11-09] MEDS: Oxybutynin TAB* 5 MG PO SCH ×3 (08:29→20:39)
[2018-11-09] MEDS: Polyethylene Glycol 3350* 17 GM PACKET PO SCH ×2 (08:29→20:39)
[2018-11-09] MEDS: CMCS Pantoprazole TAB (NF) 40 MG TAB PO SCH (08:29)
[2018-11-09] MEDS: Citalopram TAB* 40 MG PO SCH (08:29)
[2018-11-09] MEDS: Aspirin TAB* 325 MG PO SCH (08:29)
[2018-11-09] MEDS: Artificial Tears* 15 ML BTL BOTH EYES SCH (08:29)
[2018-11-09] MEDS: Baclofen TAB* 20 MG PO SCH ×3 (08:30→20:39)
[2018-11-09] MEDS: Ferrous Sulfate TAB* 325 MG PO SCH (12:58)
[2018-11-09] MEDS ORDERED: Sodium Phosphate ADULT ENEMA* 118 ml bottle PR ONE (13:15)
[2018-11-09] MEDS ORDERED: Lactulose* 15 ML UDC PO SCH (14:00)
[2018-11-09] MEDS: Atorvastatin* 10 MG TAB PO SCH (17:33)
[2018-11-09] MEDS ORDERED: Mineral Oil ENEMA* 1 BOTTLE PR ONE (18:00)
[2018-11-10] MEDS: Cefepime 1 GM in Dextrose(*) 1 GM/50 ML BAG IV SCH (05:39)
[2018-11-10] MEDS: Heparin VIAL(*) 5000 UNITS/ML VIAL (FIVE THOUSAND) SUBCUT SCH ×3 (05:39→21:39)
[2018-11-10] MEDS: Levothyroxine TAB* 25 MCG TAB PO SCH (05:39)
--- NOTE | 2018-11-10 09:11 | PN ---
Subjective Date of Service: 11/10/18 Interval History: Mr. Beck denies complaint. He has no pain in his abdomen today. He is tolerating oral intake well. Objective Active Medications: Acetaminophen (Tylenol Tab*) 650 mg PO Q4H PRN Aspirin (Aspirin Tab*) 325 mg PO DAILY GLENN Atorvastatin Calcium (Lipitor*) 5 mg PO QPM GLENN Baclofen (Lioresal Tab*) 20 mg PO 0800,1300,2000 GLENN Calcium Carbonate (Tums*) 500 mg PO Q4H PRN Citalopram Hydrobromide (Celexa Tab*) 40 mg PO 0800 GLENN Ferrous Sulfate (Ferrous Sulfate Tab*) 325 mg PO 1300 GLENN Heparin Sodium (Porcine) (Heparin Vial(*)) 5,000 units SUBCUT Q8HR GLENN Cefepime HCl (Maxipime 1 Gm In Dextrose Duplex (*)) 1 gm in 50 mls @ 100 mls/ hr IV Q12H GLENN Lactulose (Lactulose*) 30 ml PO TID GLENN Levothyroxine Sodium (Synthroid Tab*) 50 mcg PO 0600 GLENN Oxybutynin Chloride (Ditropan Tab*) 5 mg PO 0800,1300,2000 GLENN Pantoprazole Sodium (Protonix Tab (Nf)) 40 mg PO QAM GLENN Polyethylene Glycol/Electrolytes (Miralax*) 17 gm PO 0800,2100 GLENN Polyvinyl Alcohol (Polyvinyl Alcohol 1.4% Opth*) 2 drop BOTH EYES DAILY GLENN Tramadol HCl (Ultram*) 50 mg PO Q6H PRN Vital Signs: Temp Pulse Resp BP Pulse Ox 98.6 F 74 16 131/62 97 11/10/18 07:25 11/10/18 07:25 11/10/18 07:25 11/10/18 07:25 11/10/18 07:25 Oxygen Devices in Use Now: None Appearance: Male lying in bed in nAD Eyes: No Scleral Icterus Ears/Nose/Mouth/Throat: Mucous Membranes Moist Neck: Trachea Midline Respiratory: Symmetrical Chest Expansion and Respiratory Effort, Clear to Auscultation Cardiovascular: NL Sounds; No Murmurs; No JVD Abdominal: NL Sounds; No Tenderness; No Distention Extremities: No Edema Skin: No Rash or Ulcers Neurological: Alert and Oriented x 3 Nutrition: Taking PO's Result Diagrams: 11/08/18 06:42 11/08/18 06:42 Microbiology and Other Data: . Assess/Plan/Problems-Billing Assessment: Mr. Beck is a 68 yo M with a history of MS and neurogenic bladder with known bladder calculi who follows with Dr. Chris who was admitted with lower abdominal pain and non-functioning catheter found to have bladder outlet obstruction with debris and calculi in bladder, without signs of sepsis, s/p perez replacement, kept overnight due to concern for persistent severe constipation despite several liquid bowel movements. - Patient Problems (1) Constipation Comment: - Resolving, no abdominal pain, tolerating oral intake well, however abd xray shows persistent severe stool load and worsening gaseous distention - Plan for CT abd with contrast - Recommend more aggressive bowel regimen at discharge (2) Bladder outlet obstruction Comment: - S/P perez replacement - Urine culture positive but no sign of systemic illness, ? colonization with chronic perez - Plan for short course augmentin BID, follow up closely with Dr. Chris (3) Hyperlipidemia Comment: - Continue lipitor. (4) Multiple sclerosis Comment: - Continue supportive care. Continue baclofen. (5) Hypothyroid Comment: - Continue levothyroxine (6) DVT prophylaxis Comment: - SQ heparin (7) DNR (do not resuscitate) Status and Disposition: Inpatient. Anticipate discharge to [facility] when medically stable.
[2018-11-10] MEDS: Oxybutynin TAB* 5 MG PO SCH ×3 (10:18→21:39)
[2018-11-10] MEDS: Polyethylene Glycol 3350* 17 GM PACKET PO SCH ×2 (10:18→21:40)
[2018-11-10] MEDS: Aspirin TAB* 325 MG PO SCH (10:18)
[2018-11-10] MEDS: Baclofen TAB* 20 MG PO SCH ×3 (10:18→21:39)
[2018-11-10] MEDS: CMCS Pantoprazole TAB (NF) 40 MG TAB PO SCH (10:18)
[2018-11-10] MEDS: Citalopram TAB* 40 MG PO SCH (10:19)
[2018-11-10] MEDS: Artificial Tears* 15 ML BTL BOTH EYES SCH (10:20)
[2018-11-10] MEDS: Ferrous Sulfate TAB* 325 MG PO SCH (14:01)
[2018-11-10] MEDS ORDERED: Iodixanol* (CONTRAST) 320 MG/ML 100 ML SDV IV ONE (15:27)
[2018-11-10] MEDS: cefTRIAXone(*) 1 GM in NS 0.9% 50 ML* 50 ML IVPB SCH (16:11)
[2018-11-10] MEDS: Mineral Oil ENEMA* 1 BOTTLE PR SCH ×2 (18:39→22:49)
[2018-11-10] MEDS: Atorvastatin* 10 MG TAB PO SCH (18:39)
[2018-11-10] MEDS ORDERED: Amoxicillin/Clavulanate TAB* 875 MG PO SCH (21:00)
[2018-11-11] MEDS: Levothyroxine TAB* 25 MCG TAB PO SCH (05:57)
[2018-11-11] MEDS: Heparin VIAL(*) 5000 UNITS/ML VIAL (FIVE THOUSAND) SUBCUT SCH ×2 (05:57→13:45)
[2018-11-11 07:05] LABS: BUN/Creatinine Ratio 18.4 (8-20); Calcium 9.3 mg/dL (8.6-10.3); EGFR Non-African American 226.3 (>60)
[2018-11-11] MEDS: Aspirin TAB* 325 MG PO SCH (09:01)
[2018-11-11] MEDS: Citalopram TAB* 40 MG PO SCH (09:01)
[2018-11-11] MEDS: CMCS Pantoprazole TAB (NF) 40 MG TAB PO SCH (09:01)
[2018-11-11] MEDS: Oxybutynin TAB* 5 MG PO SCH ×2 (09:01→13:45)
[2018-11-11] MEDS: Polyethylene Glycol 3350* 17 GM PACKET PO SCH (09:01)
[2018-11-11] MEDS: Artificial Tears* 15 ML BTL BOTH EYES SCH (09:01)
[2018-11-11] MEDS: Baclofen TAB* 20 MG PO SCH ×2 (09:01→13:45)
[2018-11-11] MEDS ORDERED: Magnesium Hydroxide LIQ* 30 ML UDC PO PRN (12:04)
[2018-11-11] MEDS: Ferrous Sulfate TAB* 325 MG PO SCH (13:45)
--- NOTE | 2018-11-11 15:22 | DS ---
ADDENDUM TO DISCHARGE SUMMARY DICTATED BY OTTO MCCAIN NP AT 11/08/2018 DATE OF ADMISSION: 11/09/2018. DATE OF DISCHARGE: 11/11/2018. ATTENDING PROVIDER: Altagracia Woodward MD* (DICTATED BY GIANFRANCO QUINTERO NP) HOSPITAL COURSE: Mr. Beck developed constipation while here in the hospital likely secondary to his urinary retention. He has been started on an aggressive bowel regimen while in the hospital. On 11/09/2018, he had an abdominal x-ray which showed a large amount of stool noted in the rectal vault and right colon and moderately distended loops of colon and small bowel. He had an abdomen/pelvis CT on 11/10/2018 which showed findings consistent with fecal impaction causing dilation of the colon. The patient had two fleet enemas yesterday as well as multiple medications, including MiraLax, Lactulose, and Colace in an attempt to resolve the constipation. He had multiple bowel movements overnight and this morning which are soft and not formed secondary to laxative and enema use. Today, his abdomen is nondistended. He has no pain on palpation and he has normoactive bowel sounds. A repeat flat plate this morning showed a nonspecific gas pattern and a large amount of stool in the colon. He is tolerating a regular diet and has no nausea or vomiting and clinically is stable for discharge. Of note, he did have a urine culture which grew greater than 100,000 colonies of resistant E. coli and 75,000 to 100,000 colonies of Enterococcus faecalis. I did speak with Infectious Disease who felt as though the Enterococcus likely represented colonization and did not require antibiotic treatment as the patient was showing clinical improvement on ceftriaxone for the E. coli. MEDICATIONS: I have made medication changes from the original discharge summary as noted below: Changed discharge medications: 1. Cephalexin 500 mg p.o. b.i.d. times 7 days (this will be used in place of Augmentin based on urine culture sensitivities). 2. Milk of Magnesium 30 ml p.o. q.6 hours prn constipation (previously increased from 15 ml). 3. Docusate 100 mg p.o. b.i.d. 4. Fleet enema one enema p.r. daily prn constipation. 5. MiraLax 17 gm p.o. b.i.d. All other discharge medications and plan from the original discharge summary remain unchanged. GIANFRANCO QUINTERO, REJI [id number]/[facility] #: [id number] [facility] HOSPITALShant
[2018-11-11] MEDS: cefTRIAXone(*) 1 GM in NS 0.9% 50 ML* 50 ML IVPB SCH (15:47)
[2018-11-11 15:55] VITALS: BP 114/67
[2018-11-11] MEDS ORDERED: Docusate LIQ* 100 MG/10 ML UDC PO SCH (21:00)
== END 2018-11-11 17:38 | DRG 699 ==
LOC: ED 14:46 → MED 17:34 → OBSVTOIN 11-09 13:34
PROVIDERS: ADMIT Internal Medicine; ATTEND Internal Medicine
PROC: 0T2BX0Z Change Drainage Device in Bladder, External Approach (ICD-10-PCS; principal; 2018-11-07)
DX: N32.0 Bladder-neck obstruction (principal); N39.0 Urinary tract infection, site not specified; N21.0 Calculus in bladder; N40.1 Benign prostatic hyperplasia with lower urinary tract symptoms; R33.8 Other retention of urine; N31.2 Flaccid neuropathic bladder, not elsewhere classified; K21.9 Gastro-esophageal reflux disease without esophagitis; I73.9 Peripheral vascular disease, unspecified; I10 Essential (primary) hypertension; M19.90 Unspecified osteoarthritis, unspecified site; G35 Multiple sclerosis; F41.9 Anxiety disorder, unspecified; R62.50 Unspecified lack of expected normal physiological development in childhood; E11.36 Type 2 diabetes mellitus with diabetic cataract; B96.20 Unspecified Escherichia coli [E. coli] as the cause of diseases classified elsewhere; B95.2 Enterococcus as the cause of diseases classified elsewhere; Z66 Do not resuscitate; E78.5 Hyperlipidemia, unspecified; E03.9 Hypothyroidism, unspecified; K59.00 Constipation, unspecified; F32.9 Major depressive disorder, single episode, unspecified; Z74.01 Bed confinement status; Z87.442 Personal history of urinary calculi; Z85.038 Personal history of other malignant neoplasm of large intestine; Z98.41 Cataract extraction status, right eye; Z87.891 Personal history of nicotine dependence; Z82.49 Family history of ischemic heart disease and other diseases of the circulatory system; Z83.3 Family history of diabetes mellitus; Z79.82 Long term (current) use of aspirin
CPT/HCPCS: 36415; 71045; 74018; 74177; 76770; 80048; 83605; 85025; 87040; 87077; 87086; 87186; 87641; 96365; 96366; 96372; 99285; A9270-GY; G0378; J0692; J0696; J0744; J1644; Q9967

== ENCOUNTER 2019-01-04 09:25 | Emergency (ER) | payer MEDICARE, BC, OTHER ==
--- NOTE | 2019-01-04 09:54 | ED ---
GI/ HPI - HPI Summary HPI Summary: Pt is a 68 y/o male brought in by EMS who presents to the ED c/o abdominal pain. As per EMS, he was sent from [facility] for abdominal pain for the past few days. EMS found a 99.5 degree fever. Yesterday a KUB revealed mild bladder distention and a possible bowel obstruction. Pt has a Perez catheter in place. He was given Rocephin yesterday for a possible UTI. Pt has MS and at baseline is able to say 1-2 words, however today he has been less vocal. He is a level 5 caveat due to his MS. - History of Current Complaint Time Seen by Provider: 01/04/19 09:36 Stated Complaint: ABD PAIN Hx Obtained From: EMS Hx From Patient Unobtainable Due To: Other - MS Onset/Duration: Started Days Ago - 2-3, Still Present Timing: Constant Location of Pain: Other - Lower abdomen Associated Signs and Symptoms: Positive: Fever, Abdominal Pain, Other: - urinary retention Aggravating Factor(s): Nothing Alleviating Factor(s): Nothing - Additional Pertinent History Primary Care Physician: SHAMIKA - Allergy/Home Medications Allergies/Adverse Reactions: Allergies Allergy/AdvReac Type Severity Reaction Status Date / Time No Known Allergies Allergy Verified 03/17/18 06:15 PMH/Surg Hx/FS Hx/Imm Hx Endocrine/Hematology History: Reports: Hx Diabetes - diet controlled, Hx Thyroid Disease - on medication, Hx Anemia - Iron deficiency Cardiovascular History: Reports: Hx Hypercholesterolemia, Hx Hypertension, Hx Peripheral Vascular Disease - POOR LOWER LEG CIRCULATION Denies: Hx Pacemaker/ICD, Other Cardiovascular Problems/Disorders Respiratory History: Denies: Other Respiratory Problems/Disorders GI History: Reports: Hx Gastroesophageal Reflux Disease - on medication, Hx Gastrointestinal Bleed, Other GI Disorders - COLON CA, Constipation History: Reports: Hx Kidney Infection, Hx Kidney Stones - HX OF, Other Problems/Disorders - HYDRONEPHROSIS & PYELONEPHROSIS,chronic perez-neurogenic bladder,BPH Musculoskeletal History: Reports: Hx Arthritis, Other Musculoskeletal History - Multiple Sclerosis, Dysphagia, difficulty speaking Sensory History: Reports: Hx Cataracts Denies: Hx Contacts or Glasses, Hx Glaucoma, Hx Hearing Aid Opthamlomology History: Reports: Hx Cataracts Denies: Hx Contacts or Glasses, Hx Glaucoma Neurological History: Reports: Hx Developmental Delay, Hx Nerve Disease - Multiple Sclerosis, Other Neuro Impairments/Disorders - Benign Paroxysmal Vertigo Psychiatric History: Reports: Hx Anxiety Denies: Hx Panic Disorder - Cancer History Cancer Type, Location and Year: colon cancer Hx Chemotherapy: No - Surgical History Surgery Procedure, Year, and Place[place] [facility] [place] [facility] [place] DI[place] LAPAROSCOPY, [place]AROTOMY WITH SMALL BOWEL MESENTERIC MASS [place] [facility] [place]2013 CYSTOSCOPY, BILATERAL RETROGRADE, URETEROSCOPY, FRAGMENTATION AND REMOVAL LEFT URETERAL CALCULUS, BILATERAL ST[place]ION[place] [facility] [place]STOS[place], [place]AL ST[place] [facility] [place] CYSTOSCOPY, URETHERAL DILATION, FRAGMENT OF BLADDER CALCULI, [place]OV[place]PRAPUBIC [place]TER[place] [facility] [place] CYSTOSCOPY, URETHRAL DILATION, INSERTION OF [place] [facility] [place]x Anesthesia Reactions: No - [place] [facility] [place] - Immunization History Date of Tetanus Vaccine: Unk Date of Influenza Vaccine: Fall 2013 Infectious Disease History: Denies: Traveled Outside the [place] in Last 30 Days - Family History Known Family History: Positive: Diabetes Negative: Other - prostate CA - Social History Alcohol Use: None Hx Substance Use: No Substance Use Type: Reports: None Hx Tobacco Use: Yes Smoking Status (MU): Former Smoker Type: Cigarettes Have You Smoked in the Last Year: No Review of Systems Positive: Fever Positive: Abdominal Pain Positive: other - urinary retention All Other Systems Reviewed And Are Negative: No Physical Exam - Summary Physical Exam Summary: Appearance: chronically-ill appearing, mild pain distress Skin: warm, dry, reflects adequate perfusion Head/face: normal Eyes: EOMI, KIM ENT: mucous membranes moist Neck: supple, non-tender Respiratory: CTA, breath sounds present Cardiovascular: RRR, pulses symmetrical, no edema Abdomen: soft, grossly distended over lower abdominal, midline surgical scar, indwelling Perez catheter with sisi colored urine in bag Bowel Sounds: present Musculoskeletal: contractured extremities, bed-bound Neuro: sensory motor intact, A&Ox3, able to speak but not able to comprehend due to severe MS Physical exam limited by MS - LEVEL 5 CAVEAT Triage Information Reviewed: Yes Vital Signs Reviewed: Yes Completion Of Physical Exam Limited Due To: Other - MS Diagnostics - Laboratory Lab Statement: Any lab studies that have been ordered have been reviewed, and results considered in the medical decision making process. - Ultrasound No standard instances Ultrasound Interpretation Completed By: ED Physician Summary of Ultrasound Findings: Bladder US performed at bedside by ED physician : > 999 ml. Re-Evaluation - Re-Evaluation First Eval Re-Evaluation Time: 10:23 Change: Improved Comment: Pt is now comfortably sleeping after drainage of his bladder. GIGU Course/Dx - Course Course Of Treatment: Nurse's notes reviewed. I performed a bedside bladder scan and found gross urinary retention despite Perez catheter. Perez was nonfunctional. This was removed and a new catheter was replaced. He drained out 1700 cc with a heavy sediment. He had been given Rocephin intramuscularly at the nursing facility. We gave an additional dose here and will continue him on Keflex. He'll follow up with primary care physician. His pain resolved relieved with placement of new catheter in draining of urine. - Diagnoses Differential Diagnoses - Male: Other - Bowel obstruction, urinary retention, UTI , bowel perforation Provider Diagnoses: Acute UTI, Complication of Perez catheter, Urinary retention Discharge - Sign-Out/Discharge Documenting (check all that apply): Patient Departure - Discharge Patient Received Moderate/Deep Sedation with Procedure: No - Discharge Plan Condition: Improved Disposition: [facility] Prescriptions: Cephalexin CAP* [Keflex 500 CAP*] 500 mg PO TID 7 Days #21 cap Patient Education Materials: Urinary Retention in Men (ED), Urinary Tract Infection in Men (ED), Perez Catheter Placement and Care (ED) Referrals: Samantha Davila MD [Primary Care Provider] - Additional Instructions: Continue Keflex. Keep well-hydrated. Return with fever, vomiting, lethargy, worse, new symptoms or other concerns. Follow up promptly with family physician. - Billing Disposition and Condition Condition: IMPROVED Disposition: Senior Care Facility - Attestation Statements Document Initiated by Ronanibe: Yes Documenting Scribe: Fiona Nieto Provider For Whom Rebecca is Documenting (Include Credential): Erasto Chambers MD Scribe Attestation: Fiona Figueredo, scribed for Erasto Chambers MD on 01/04/19 at 1149. Scribe Documentation Reviewed: Yes Provider Attestation: The documentation as recorded by the Fiona slaughter accurately reflects the service I personally performed and the decisions made by me, Erasto Chambers MD Status of Scribe Document: Viewed
[2019-01-04] MEDS ORDERED: cefTRIAXone VIAL(*) 1,000 MG VIAL IM ONE (10:21)
[2019-01-04 10:32] LABS: Urine Appearance Turbid; Urine Bacteria Absent (Absent); Urine Bilirubin Negative (Negative); Urine Blood 1+ (Negative); Urine Color Yellow; Urine Glucose Negative (Negative); Urine Ketones Negative (Negative); Urine Nitrite Negative (Negative); Urine Protein 3+(>=500 mg/dL) (Negative); Urine Red Blood Cell Absent (Absent); Urine Specific Gravity 1.012 (1.010-1.030); Urine Urobilinogen Negative (Negative); Urine White Blood Cell 3+(>20/hpf) (Absent)
[2019-01-04 11:27] VITALS: BP 141/75
== END 2019-01-04 11:26 ==
LOC: ED 09:25
DX: N39.0 Urinary tract infection, site not specified (principal); R33.9 Retention of urine, unspecified; R50.9 Fever, unspecified; T83.9XXA Unspecified complication of genitourinary prosthetic device, implant and graft, initial encounter; R10.9 Unspecified abdominal pain; Z87.891 Personal history of nicotine dependence
CPT/HCPCS: 81003; 81015; 87077; 87086; 87184; 87186; 96372; 99283

== ENCOUNTER 2019-01-04 14:13 | Inpatient (IN) | payer MEDICARE, BC, OTHER ==
[2019-01-04] MEDS ORDERED: Piperacillin/Tazobac ADVAN(*) 3.375 GM in NS 0.9% 100 ML* 100 ML IVPB ONE (14:14)
[2019-01-04] MEDS ORDERED: NS 0.9% 1000 ML** 1,000 ML IV ONE ×2 (14:15→15:37)
--- NOTE | 2019-01-04 14:20 | ED ---
HPI Febrile Illness - HPI Summary HPI Summary: Pt is a 68 y/o male brought in by EMS who presents to the ED c/o abdominal pain. As per EMS, he was sent from [facility] for abdominal pain for the past few days. EMS found a 99.5 degree fever. Yesterday a KUB revealed mild bladder distention and a possible bowel obstruction. Pt has a Perez catheter in place. He was given Rocephin yesterday for a possible UTI. Pt has MS and at baseline is able to say 1-2 words, however today he has been less vocal. Pt was here earlier today but was discharged. He was brought back by EMS because he now has a fever, and is lethargic and confused. Pt has been given .5 L of fluids. He is a level 5 caveat due to his MS. - History of Current Complaint Time Seen by Provider: 01/04/19 14:13 Hx Obtained From: EMS Hx From Patient Unobtainable Due To: Other - MS Onset/Duration: Started Days Ago - 2-3 days, Worse Since Timing: Constant Aggravating Factors: Nothing Alleviating Factors: Nothing Associated Signs and Symptoms: Other: - urinary retention, confusion, abdominal pain - Additional Pertinent History Primary Care Physician: SHAMIKA - Allergy/Home Medications Allergies/Adverse Reactions: Allergies Allergy/AdvReac Type Severity Reaction Status Date / Time No Known Allergies Allergy Verified 01/04/19 14:49 Home Medications: Home Medications Docusate CAP* [Colace Cap*] 200 mg PO DAILY 01/04/19 [History Confirmed 01/04/19 ] Polyethylene Glycol 3350* [Miralax*] 17 gm PO DAILY 01/04/19 [History Confirmed 01/04/19] cefTRIAXone VIAL(*) [Rocephin VIAL(*)] 1 gm IM QAM 01/04/19 [History Confirmed 01/04/19] PMH/Surg Hx/FS Hx/Imm Hx Endocrine/Hematology History: Reports: Hx Diabetes - diet controlled, Hx Thyroid Disease - on medication, Hx Anemia - Iron deficiency Cardiovascular History: Reports: Hx Hypercholesterolemia, Hx Hypertension, Hx Peripheral Vascular Disease - POOR LOWER LEG CIRCULATION Denies: Hx Pacemaker/ICD, Other Cardiovascular Problems/Disorders Respiratory History: Denies: Other Respiratory Problems/Disorders GI History: Reports: Hx Gastroesophageal Reflux Disease - on medication, Hx Gastrointestinal Bleed, Other GI Disorders - COLON CA, Constipation History: Reports: Hx Kidney Infection, Hx Kidney Stones - HX OF, Other Problems/Disorders - HYDRONEPHROSIS & PYELONEPHROSIS,chronic perez-neurogenic bladder,BPH Musculoskeletal History: Reports: Hx Arthritis, Other Musculoskeletal History - Multiple Sclerosis, Dysphagia, difficulty speaking Sensory History: Reports: Hx Cataracts Denies: Hx Contacts or Glasses, Hx Glaucoma, Hx Hearing Aid Opthamlomology History: Reports: Hx Cataracts Denies: Hx Contacts or Glasses, Hx Glaucoma Neurological History: Reports: Hx Developmental Delay, Hx Nerve Disease - Multiple Sclerosis, Other Neuro Impairments/Disorders - Benign Paroxysmal Vertigo Psychiatric History: Reports: Hx Anxiety Denies: Hx Panic Disorder - Cancer History Cancer Type, Location and Year: colon cancer Hx Chemotherapy: No - Surgical History Surgery Procedure, Year, and Place[place] [facility] [place] , [facility] [place]AG LAPAROSCOPY, LAPAROTOMY WITH SMALL BOWEL MESENTERIC MASS RESECTION[place] [facility] [place] CYSTOSCOPY, BILATERAL RETROGRADE, URETEROSCOPY, FRAGMENTATION AND REMOVAL LEFT URETERAL CALCULUS, BILATERAL STENT INSERTION[place] [facility] [place]STOSCOPY, BILATERAL STENT REMOVAL[place] [facility] [place] CYSTOSCOPY, URETHERAL DILATION, FRAGMENT OF BLADDER CALCULI, REMOVAL OF SUPRAPUBIC CATHETER[place] [facility] [place] CYSTOSCOPY, URETHRAL DILATION, INSERTION OF NENANA TIP CATHETER[place] [facility] [place]x Anesthesia Reactions: No - [place] [facility] [place] - Immunization History Date of Tetanus Vaccine: Unk Date of Influenza Vaccine: Fall 2013 - Family History Known Family History: Positive: Diabetes Negative: Other - prostate CA - Social History Alcohol Use: None Hx Substance Use: No Substance Use Type: Reports: None Hx Tobacco Use: Yes Smoking Status (MU): Former Smoker Type: Cigarettes Have You Smoked in the Last Year: No Review of Systems Positive: Fever Positive: Abdominal Pain Positive: other - urinary retention Neurological: Other - confusion, lethargy All Other Systems Reviewed And Are Negative: No Physical Exam - Summary Physical Exam Summary: Appearance: chronically-ill appearing, mild pain distress Skin: warm, dry, reflects adequate perfusion Head/face: normal Eyes: EOMI, KIM ENT: mucous membranes moist Neck: supple, non-tender Respiratory: CTA, breath sounds present Cardiovascular: RRR, pulses symmetrical, no edema Abdomen: soft, grossly distended over lower abdominal, midline surgical scar, indwelling Perez catheter with sisi colored urine in bag Bowel Sounds: present Musculoskeletal: contractured extremities, bed-bound Neuro: sensory motor intact, A&Ox3, able to speak but not able to comprehend due to severe MS Physical exam limited by MS - LEVEL 5 CAVEAT Triage Information Reviewed: Yes Vital Signs Reviewed: Yes Completion Of Physical Exam Limited Due To: Level 5 - MS Diagnostics - Laboratory Result Diagrams: 01/04/19 14:48 01/04/19 14:48 Lab Statement: Any lab studies that have been ordered have been reviewed, and results considered in the medical decision making process. - Radiology CXR Radiology Interpretation Completed By: Radiologist Summary of Radiographic Findings: 1. No radiographic evidence for acute cardiopulmonary abnormality on this portable chest x-ray. 2. Air-filled loops of transverse colon measure up to 9.4 cm in diameter. Please correlate to signs or symptoms of bowel obstruction. ED physician reviewed radiology report. - CT CT A/P CT Interpretation Completed By: Radiologist Summary of CT Findings: 1. Linear based density at the bilateral lung bases and small pleural effusions that are similar to the previous CT examination. Please correlate to signs or symptoms of pneumonia. 2. Mostly gas-filled dilated rectum measuring 10 cm in greatest axial dimension. This is more consistent with ileus than bowel obstruction. 3. There are chunky calcifications seen in the bilateral collecting systems and the urinary bladder without definite johana hydronephrosis. 4. The patient is catheterized and there is gas in the lumen of the bladder which could be due to the Perez catheter. There is questionable gas within the wall of the bladder which could be seen in the setting of cystitis. 5. Additional chronic and degenerative changes as described in body the report. ED physician reviewed radiology report. - EKG 14:32 Cardiac Rate: Tachycardia - 116 bpm EKG Rhythm: Sinus Rhythm ST Segment: Non-Specific Summary of EKG Findings: Nl axis, baseline artifact Course/Dx - Course Course Of Treatment: Nurse's notes reviewed. Patient on second visit of the day. He had had new Perez placed for urinary retention and had received Rocephin intramuscularly. On return to the facility he had developed a fever with some decrease in mental status. He was returned here for those reasons. He is given IV fluids and IV Zosyn. A CT scan of his abdomen was performed to rule out bowel obstruction. No bowel obstruction was found. These findings on plain film are likely chronic gas dilation due to his MS. Source of sepsis is likely urinary with heavy sediment when changing the Perez catheter. This is likely what blocked the catheter in the first place. He is otherwise stable and admitted to the medicine service. - Febrile Illness Differential Diagnoses: Bacteremia, Pneumonia, Sepsis - Diagnoses Provider Diagnoses: UTI (urinary tract infection), Sepsis, Elevated troponin - Provider Notifications Discussed Care Of Patient With: Altagracia Woodward Time Discussed With Above Provider: 16:39 Instructed by Provider To: Admit As Inpatient - Critical Care Time Critical Care Time: 30-74 min - CCT is EXCLUSIVE of separately billable procedures. Discharge - Sign-Out/Discharge Documenting (check all that apply): Patient Departure - Admit Patient Received Moderate/Deep Sedation with Procedure: No - Discharge Plan Condition: Fair Disposition: ADMITTED TO [facility] Referrals: Samantha Davila MD [Primary Care Provider] - - Billing Disposition and Condition Condition: FAIR Disposition: Admitted to [facility] - Attestation Statements Document Initiated by Ronanibe: Yes Documenting Scribe: Fiona Nieto Provider For Whom Nurye is Documenting (Include Credential): Erasto Chambers MD Scribe Attestation: Fiona Figueredo, scribed for Erasto Chambers MD on 01/04/19 at 1759. Scribe Documentation Reviewed: Yes Provider Attestation: The documentation as recorded by the Fiona slaughter accurately reflects the service I personally performed and the decisions made by me, Erasto Chambers MD Status of Scribe Document: Viewed
[2019-01-04 14:58] LABS: Hematocrit 37 % (42-52); Hemoglobin 12.6 g/dl (14.0-18.0); Mean Corpuscular HGB Conc 34 g/dl (31-36); Mean Corpuscular Hemoglobin 31 pg (27-31); Mean Corpuscular Volume 93 fL (80-94); Platelet Count 230 10^3/ul (150-450); Red Blood Count 4.02 10^6/ul (4.00-5.40); Red Cell Distribution Width 16 % (10.5-15); White Blood Count 9.8 10^3/ul (3.5-10.8)
[2019-01-04 15:18] LABS: Activated Partial Thrombo Time 29.4 seconds (26.0-36.3); INR 1.21 (0.77-1.02)
[2019-01-04 15:22] LABS: Albumin 3.4 g/dL (3.2-5.2); Albumin/Globulin Ratio 1.4 (1-3); BUN/Creatinine Ratio 53.1 (8-20); C Reactive Protein 192.92 mg/L (<8.01); Calcium 9.3 mg/dL (8.6-10.3); EGFR African American 114.3 (>60); EGFR Non-African American 94.5 (>60); Globulin 2.5 g/dL (2-4); Potassium 3.3 mmol/L (3.5-5.0); Total Bilirubin 0.5 mg/dL (0.2-1.0); Total Protein 5.9 g/dL (6.4-8.9)
[2019-01-04 15:25] LABS: Troponin I 1.12 ng/mL (<0.04)
[2019-01-04] MEDS ORDERED: Aspirin SUPP* 300 MG PR ONE (15:40)
[2019-01-04 15:48] LABS: ABS Basophils 0 10^3/ul (0-0.2); ABS Eosinophils 0 10^3/ul (0-0.6); ABS Lymphocytes 0.2 10^3/ul (1.0-4.8); ABS Monocytes 0.9 10^3/ul (0-0.8); ABS Neutrophils 8.7 10^3/ul (1.5-7.7)
[2019-01-04 15:50] LABS: Lymphocytes % 3 %; Monocytes % 8 %; Neutrophil % 89 %
[2019-01-04 15:51] LABS: ABS Neutrophils 8.72 10^3/ul (1.5-7.7)
[2019-01-04 16:44] LABS: Urine Appearance Turbid; Urine Bacteria Absent (Absent); Urine Bilirubin Negative (Negative); Urine Blood 2+ (Negative); Urine Color Yellow; Urine Glucose Negative (Negative); Urine Ketones Negative (Negative); Urine Nitrite Negative (Negative); Urine Protein 2+(100 mg/dL) (Negative); Urine Red Blood Cell 3+(>10/hpf) (Absent); Urine Specific Gravity 1.013 (1.010-1.030); Urine Urobilinogen Negative (Negative); Urine White Blood Cell 3+(>20/hpf) (Absent)
[2019-01-04] MEDS ORDERED: Acetaminophen TAB* 325 MG PO PRN (17:31)
[2019-01-04] MEDS ORDERED: NS 0.9% 1000 ML** 1,000 ML IV SCH (17:45)
[2019-01-04] MEDS ORDERED: Zosyn per Pharmacy* NOTE FOLLOW UP SCH (18:00)
[2019-01-04] MEDS: Pantoprazole IV* 40 MG IV SCH (18:49)
[2019-01-04 19:10] LABS: TSH (Thyroid Stimulating Horm) 2.38 mcIU/mL (0.34-5.60)
[2019-01-04] MEDS: ZOSYN 3.375 GM Q8H per EXTENDED INFUSION IVPB SCH ×2 (20:11)
[2019-01-04] MEDS: Heparin VIAL(*) 5000 UNITS/ML VIAL (FIVE THOUSAND) SUBCUT SCH (20:45)
[2019-01-04] MEDS: KCL 20 MEQ/100 ML IVPREMIX* 20 MEQ/100 ML BAG IV SCH ×2 (20:45→23:06)
--- NOTE | 2019-01-04 20:57 | PN ---
Sepsis Event Evaluation Date of Evaluation: 01/04/19 Time of Evaluation: 20:30 Current Stage of Sepsis: Sepsis Vital Signs - Last 12 Hours: Vital Signs - 12 hr Temp Pulse Resp BP Pulse Ox 01/04/19 18:23 99 15 128/82 97 01/04/19 18:22 97.9 F 98 20 117/75 97 01/04/19 18:00 107 22 96 01/04/19 17:53 98 19 117/75 95 01/04/19 17:23 102 21 123/83 96 01/04/19 17:22 97.9 F 01/04/19 17:00 107 96 01/04/19 16:53 107 125/79 96 01/04/19 16:24 110 116/60 95 01/04/19 16:00 111 21 96 01/04/19 15:53 114 27 102/68 91 01/04/19 15:23 110 104/69 94 01/04/19 15:00 113 94 01/04/19 14:42 94 01/04/19 14:41 110 93 01/04/19 14:40 101.6 F 110 22 109/77 94 Lactic Acid: 01/04/19 01/04/19 14:48 18:04 Lactic Acid 1.6 1.6 - Cardiopulmonary Exam Capillary Refill: Delayed Respiratory: Symmetrical Chest Expansion and Respiratory Effort, Clear to Auscultation Cardiovascular: NL Sounds; No Murmurs; No JVD, RRR, No Edema - Peripheral Pulse Exam Radial Pulses: Bilateral Normal Pedal Pulses: Bilateral Normal Posterior Tibial Pulse: Bilateral Normal - Skin Exam Skin Exam: Pale - Fermin Coma Scale Best Eye Response: 4 - Spontaneous Best Motor Response: 6 - Obeys Commands Best Verbal Response: 4 - Confused Coma Scale Total: 14 Assess/Plan/Problems-Billing Assessment:
--- NOTE | 2019-01-05 00:37 | HP ---
CC: Silvia * HISTORY AND PHYSICAL: DATE OF ADMISSION: 01/04/19 PROVIDER: Su Easton NP PRIMARY CARE PROVIDER: Silvia. ATTENDING PHYSICIAN WHILE IN THE HOSPITAL: Dr. Altagracia Woodward * (dictated by Su Easton NP) CHIEF COMPLAINT: Altered mental status, lower abdominal pain. HISTORY OF PRESENT ILLNESS: Mr. Beck is a 68-year-old male who carries a past medical history of MS, neurogenic bladder with chronic Alarcon placement, diabetes which is diet-controlled, hypertension, hyperlipidemia, BPH, GERD, hypothyroidism, who initially presented to the emergency room this morning with lower abdominal pain. He was found to have urinary retention with 1700 cc in his bladder. His Alarcon at that time was changed; he did have purulent drainage. He was given 2 g of IV ceftriaxone and discharged to [facility]. Upon return to [facility], the patient had a fever of 101.6 and altered mental status, so he was sent back to the emergency room for further evaluation. Per [facility], the patient was less vocal and had a fever. On admission to the emergency room, the patient was found to have a temperature of 101.6. He was tachycardic at a rate of 113 and had a blood pressure of 109/ 77. Due to his altered mental status and fever, we were asked to see and evaluate the patient for admission. PAST MEDICAL HISTORY: Significant for: 1. MS. 2. Diabetes, which is diet-controlled. 3. Hypertension. 4. Hyperlipidemia. 5. GERD. 6. BPH. 7. Neurogenic bladder. PAST SURGICAL HISTORY: 1. History of back surgery. 2. History of abdominal surgery. 3. Question bowel resection. HOME MEDICATIONS: Include: 1. Levothyroxine 75 mcg p.o. daily. 2. Fleet enema [place] as needed for constipation. 3. Milk of Magnesia 30 mL q.6 hours as needed. 4. Tums 500 mg p.o. q.4 hours as needed. 5. Tramadol 50 mg p.o. q.6 hours as needed. 6. Acetaminophen 650 mg p.o. q.6 hours as needed for pain or fever. 7. Colace 200 mg p.o. daily. 8. MiraLax 17 g p.o. daily. 9. Ensure Plus 1 bottle 3 times a day. 10. TriCor 145 mg p.o. daily. 11. Baclofen 20 mg at 0800, 1300, and 1999. 12. Aspirin 325 p.o. daily. 13. Artificial tears 2 drops to both eyes b.i.d. 14. Pantoprazole 40 mg p.o. q.a.m. 15. Oxybutynin 5 mg at 0800, 1300, and 1999. 16. Ferrous sulfate 325 at 1300. 17. Citalopram 40 mg p.o. at 8 a.m. 18. Simvastatin 10 mg p.o. q.p.m. ALLERGIES: No known drug allergies. FAMILY HISTORY: Family history was obtained from prior records. There are reports that his father had history of coronary artery disease and diabetes. No reported history of cancer within the family. SOCIAL HISTORY: Again was obtained from his past medical records. He reports that he quit smoking. He denies any alcohol or recreational drug use. His surrogate decision maker in the event he is unable to make his own decisions is his . He is a full code. REVIEW OF SYSTEMS: The patient does have documented fever. I am unable to complete a review of systems as the patient has decreased mentation and is unable to voice any complaints at this time. There is no gross hematuria noted in the Alarcon bag. He does open his eyes to verbal stimuli. PHYSICAL EXAMINATION GENERAL: At this time, Mr. Beck is a 68-year-old male who appears chronically ill, lying on the stretcher in the emergency room. He opens his eyes to verbal stimuli. He has garbled speech, mumbling. VITAL SIGNS: Temperature was 101.6, heart rate is 108, respirations 22, O2 saturation 96%, blood pressure 117/75. HEENT: Head is atraumatic, normocephalic. Eyes: EOMs are intact. Sclerae are anicteric and not pale. Oral mucosa is dry. NECK: Supple. LUNGS: Clear to auscultation. No wheezes, rales, or rhonchi. CARDIAC: S1 and S2. Regular rate and rhythm. No murmurs, rubs or gallops. ABDOMEN: Firm. Bowel sounds are hypoactive x4. He does grimace with palpation to all 4 quadrants of his abdomen. EXTREMITIES: The patient is unable to move his lower extremities due to MS. He is unable to follow commands at this time for handgrips. NEUROLOGIC: He opens his eyes to verbal. He is unable to voice complaints. He is fatigued and weak. His speech is difficult to understand. He is unable to follow commands at this time. SKIN: Intact. DIAGNOSTIC STUDIES/LAB DATA: WBCs are 9.8, RBCs 4.02, hemoglobin 12.6, hematocrit was 37, platelet count was 230. INR was 1.21. Sodium 141, potassium 3.3, chloride 108, carbon dioxide 24, anion gap was 8. BUN was 43, creatinine 0.81. Glucose was 140. Lactic acid was 1.6, calcium 9.3, magnesium 2.0, ASTs were 20, ALTs were 13, alkaline phosphatase was 53, initial troponin was 1.12, C-reactive protein was 192.92, TSH was 238. Repeat troponin was 0.80. He had a chest x-ray, radiologist's impression: No radiographic evidence of acute cardiopulmonary abnormality on the portable chest x-ray. Air-filled loops of transverse colon measuring up to 9.4 cm in diameter. He had a CT of the abdomen and pelvis, linear base density in bilateral lung muro, small pleural effusions that are similar to previous CT exam, please correlate for signs and symptoms of pneumonia. Mostly gas-filled rectum measuring up to 10 cm in the greatest axial dimensions. This is most consistent with ileus than bowel obstruction. There is chunky calcification in bilateral collecting systems and the urinary bladder without definite johana hydronephrosis. The patient is catheterized and there is gas within the lumen of the bladder, which could be due to Alarcon catheter. There is questionable gas within the wall of the bladder, which could be seen in the setting of cystitis. Additional chronic and degenerative changes are noted. He had an electrocardiogram, which showed some sloping in V2 of the T-wave and questionable T-wave inversion in lead III. When compared to old EKG, T-wave was flat in lead III. ASSESSMENT AND PLAN: Mr. Beck is a 68-year-old male with past medical history significant for multiple sclerosis, neurogenic bladder, diabetes, hypertension, hyperlipidemia, benign prostatic hyperplasia, and gastroesophageal reflux disease, who presented to the emergency room with altered mental status, fever, and urinary tract infection. Due to these symptoms, we were asked to see and evaluate the patient for admission. He will be admitted inpatient for: 1. Altered mental status. I suspect this is related to toxic metabolic encephalopathy related to his urinary tract infection and severe sepsis. He was given fluid bolus in the emergency room. We will place him on Zosyn IV for treatment of his urinary tract infection. We will continue to monitor his neurological status. 2. Urinary tract infection. The patient does have neurogenic bladder with chronic Aalrcon placement. On initial presentation to the emergency room this morning, he was found to have 1700 cc in his bladder prior to Alarcon change. Alarcon catheter was changed and did have purulent discharge with no Alarcon. We will continue treatment with Zosyn IV. A CT of the abdomen and pelvis was completed. There is no hydronephrosis noted on the CAT scan. 3. Severe sepsis. The patient does meet severe sepsis criteria with tachycardia rate of 113, fever of 101.6, increased respirations at 24 with known source of infection of urinary tract infection. His lactic acid was 1.6. He does have some altered mental status from his baseline. Given this criteria, he does meet severe sepsis. He does have elevation in his troponin at 1.12 as well. He did receive the fluid bolus. He did have initial lactic acid at 1.6 and a repeat lactic acid as well was 1.6. He was started on Zosyn antibiotics IV. We will repeat an assessment in 6 hours and treat as needed for any hypotension. 4. Elevated troponin. I suspect his elevation in troponin is related to demand ischemia. His initial troponin was 1.12. His repeat troponin was trending down at 0.80. He is unable to voice whether or not he has any chest pain. We will continue to trend his troponins and we will continue aspirin and statin and get a transthoracic echocardiogram in the a.m. If his troponin showed increase, we will get cardiology consult. 5. Bowel distention. The patient did have a CT of the abdomen. His abdomen was firm with hypoactive bowel sounds. His colon was distended. He did have a Flexi- Seal placed for decompression of the colon. I suspect this is related to distended bladder that he had. His bladder is now decompressed and we have placed the Flexi- Seal to decompress his abdomen. I will get a KUB, abdominal x -ray in the a.m. to confirm decompression of the colon. 6. Multiple sclerosis. We will continue on his meds as previously prescribed. 7. Hyperlipidemia. We will continue on simvastatin 10 mg p.o. daily. 8. Benign prostatic hypertrophy. We will continue on oxybutynin as previously prescribed. 9. Hypothyroid. I will continue on levothyroxine 37.5 IV until the patient is able to take p.o. medications and then I will change to p.o. 10. Gastroesophageal reflux disease. The patient will continue on omeprazole. I will place him on pantoprazole 40 mg IV until he is able to take oral medications. 11. Depression. I will continue on Celexa as previously prescribed when the patient is able to take oral medications. 12. DVT prophylaxis. I will place him on heparin subcu for DVT prophylaxis. 13. Code status. He is full code. 14. Fluid, electrolytes, and nutrition. The patient will be placed on a clear liquid diet. TIME SPENT: Time spent on this admission was 60 minutes; greater than half of that time was spent at the bedside performing my physical exam and reviewing old records and emergency room records for events leading thus far to his hospitalization and second half was spent going over my plan of care and implementing my plan of care. I have discussed with my attending, Dr. Altagracia Woodward; she is in agreement with my plan. SU EASTON NP [id number]/[facility] #: [id number] LAURA
[2019-01-05] MEDS: ZOSYN 3.375 GM Q8H per EXTENDED INFUSION IVPB SCH ×6 (03:03→19:44)
[2019-01-05] MEDS ORDERED: Furosemide IV* 10 MG/ML 2 ML VIAL (20 MG) IV ONE (05:09)
[2019-01-05] MEDS: Levothyroxine INJ* 100 MCG/5 ML VIAL IV SCH (05:37)
[2019-01-05 06:14] LABS: ABS Basophils 0 10^3/ul (0-0.2); ABS Eosinophils 0 10^3/ul (0-0.6); ABS Lymphocytes 0.4 10^3/ul (1.0-4.8); ABS Monocytes 0.8 10^3/ul (0-0.8); ABS Neutrophils 5.3 10^3/ul (1.5-7.7); ABS Nucleated RBC 0 10^3/ul; Eosinophil % 0.4 %; Hematocrit 38 % (42-52); Hemoglobin 12.4 g/dl (14.0-18.0); Lymphocyte % 6.3 %; Mean Corpuscular HGB Conc 33 g/dl (31-36); Mean Corpuscular Hemoglobin 31 pg (27-31); Mean Corpuscular Volume 93 fL (80-94); Mean Platelet Volume 9.3 fL (7.4-10.4); Nucleated Red Blood Cells % 0; Platelet Count 196 10^3/ul (150-450); Red Blood Count 4.04 10^6/ul (4.00-5.40); Red Cell Distribution Width 16 % (10.5-15); White Blood Count 6.6 10^3/ul (3.5-10.8)
[2019-01-05 06:48] LABS: Calcium 9.2 mg/dL (8.6-10.3); Potassium 3.2 mmol/L (3.5-5.0)
[2019-01-05 06:54] LABS: BUN/Creatinine Ratio 64.9 (8-20); EGFR African American 171.5 (>60); EGFR Non-African American 141.7 (>60)
[2019-01-05] MEDS ORDERED: Potassium Chlor TAB* 20 MEQ TAB.ER PO ONE (08:50)
--- NOTE | 2019-01-05 09:35 | ECHO ---
Patient: ALYSON BUNCH [facility] Rec#: [id number] : 1950 Date: 01/05/2019 Age: 68y Height: 170 cm / 66.9 in Weight: 59 kg / 130.0 lbs Sex: M BSA: 1.7 Room#: [facility] Admit Date#: 01/04/2019 Type: Inpatient Referring: Su Easton Reading: Kassy Sanches MD Import Export Manager: Dee Whitaker RN RDCS CC: Samantha Davila MD Transthoracic Echocardiogram Indication: Abnormal EKG BP: 115/64 HR: 87 Rhythm: NSR with PACs Findings History: Multiple sclerosis, HTN, HLD, DM, GERD, admitted with AMS and UTI. Technical Comments: The study quality is fair. The study is technically limited due to the patient's smoking history. Completed at 0855. Left Ventricle: The left ventricular chamber size is normal. Septal wall hypertrophy is observed.Relative hypokinesis of the septum. Global left ventricular wall motion and contractility are within normal limits. The left ventricle appears hyperdynamic. The estimated ejection fraction is 60-65%. There is no consistent Doppler evidence of clinically significant diastolic dysfunction. Left Atrium: The left atrial chamber size is normal. Right Ventricle: The right ventricle wall thickness is mildly increased. The right ventricular cavity size is normal. The right ventricular global systolic function is normal. Right Atrium: The right atrial cavity size is normal. Aortic Valve: The aortic valve leaflets are mildly thickened. There is aortic annular calcification. There is mild aortic regurgitation. There is no evidence of aortic stenosis. Mitral Valve: There is posterior mitral annular calcification. The mitral valve leaflets are mildly thickened. There is trace to mild mitral regurgitation. There is no evidence of mitral stenosis. Tricuspid Valve: The tricuspid valve leaflets are normal. There is mild tricuspid regurgitation. No pulmonary hypertension is noted. There is no tricuspid stenosis. Pulmonic Valve: The pulmonic valve structure is not well visualized. There is no evidence of pulmonic regurgitation. There is no pulmonic stenosis. Pericardium: A trivial pericardial effusion is visualized. Aorta: There is mild dilatation of the ascending aorta. There is no dilatation of the aortic arch. There is mild dilatation of the aortic root. Pulmonary Artery: The main pulmonary artery is not well visualized. Venous: The venous system is not well visualized. The inferior vena cava is not visualized. Conclusions The left ventricular chamber size is normal. Septal wall hypertrophy and relative septal hypokinesis. Global left ventricular wall motion and contractility are within normal limits, hyperdysnamic in appearance. The estimated ejection fraction is 60-65%. The right ventricle wall thickness is mildly increased and systolic function is normal. There is mild aortic regurgitation, aortic valve sclerosis. There is posterior mitral annular calcification. There is trace to mild mitral regurgitation. There is mild tricuspid regurgitation. There is mild dilatation of the ascending aorta: 3.6 cm. A trivial pericardial effusion is visualized, up to 0.4 cm. No prior echo to compare. Measurements Name Value Normal Range RVIDd (AP) 2D 2.8 cm (0.9 - 2.6) RVDdMajor (2D) 3.4 cm (2.2 - 4.4) RVAW (2D) 0.8 cm (0.2 - 0.5) RAd ISD 4CH 3.8 cm (3.4 - 4.9) RA (A4C)W 3.5 cm (2.9 - 4.6) IVSd (2D) 1.3 cm (0.6 - 1) LVPWd (2D) 0.9 cm (0.6 - 1) LVIDd (2D) 4.1 cm (3.6 - 5.4) Aortic Annulus 2 cm (1.4 - 2.6) Ao root diameter (2D) 3.7 cm (2.1 - 3.5) Ascending Ao 3.6 cm (2.1 - 3.4) Aortic arch 2.6 cm (1.8 - 3.4) LA dimension (AP) 2D 2.7 cm (2.3 - 3.8) LAd ISD 4CH 3.6 cm (2.9 - 5.3) LA ISD 4CH W 3.4 cm (2.5 - 4.5) Name Value Normal Range LA ESV BP (A/L) index 12 ml/m2 - Name Value Normal Range MV E-wave Vmax 0.76 m/sec - MV deceleration time 232 msec - MV A-wave Vmax 1.2 m/sec - MV E:A ratio 0.7 ratio - LV septal e' Vmax 0.06 m/sec - LV lateral e' Vmax 0.06 m/sec - LV E:e' septal ratio 12.7 ratio - LV E:e' lateral ratio 12.7 ratio - Name Value Normal Range AV Vmax 1.4 m/sec - AV VTI 26.5 cm - AV peak gradient 7 mmHg - AV mean gradient 4 mmHg - LVOT Vmax 1.1 m/sec - LVOT VTI 21.2 cm - LVOT peak gradient 5 mmHg - LVOT mean gradient 2 mmHg - SHELL Vmax 0.72 m/sec - Name Value Normal Range TR Vmax 2.2 m/sec - TR peak gradient 19 mmHg - RAP 8 mmHg - RVSP 27 mmHg - Name Value Normal Range PV Vmax 0.82 m/sec -
[2019-01-05] MEDS: Aspirin TAB* 325 MG PO SCH (11:01)
[2019-01-05] MEDS: Baclofen TAB* 20 MG PO SCH ×3 (11:01→19:45)
[2019-01-05] MEDS: Citalopram TAB* 40 MG PO SCH (11:01)
[2019-01-05] MEDS: Heparin VIAL(*) 5000 UNITS/ML VIAL (FIVE THOUSAND) SUBCUT SCH ×2 (11:05→21:20)
[2019-01-05] MEDS: Oxybutynin TAB* 5 MG PO SCH ×3 (11:42→19:45)
--- NOTE | 2019-01-05 18:53 | PN ---
Subjective Date of Service: 01/05/19 Interval History: Patient seen and examined. Mostly non-verbal, but does track with his eyes when called by his name. does not appear to be in acute distress. Objective Active Medications: Acetaminophen (Tylenol Tab*) 650 mg PO Q6H PRN PRN Reason: FEVER/PAIN Last Admin: 01/05/19 15:46 Dose: 650 mg Aspirin (Aspirin Tab*) 325 mg PO DAILY ON LICENSE OF [facility] Last Admin: 01/05/19 11:01 Dose: 325 mg Atorvastatin Calcium (Lipitor*) 5 mg PO QPM ON LICENSE OF [facility] Baclofen (Lioresal Tab*) 20 mg PO 0800,1300,2000 ON LICENSE OF [facility] Last Admin: 01/05/19 14:42 Dose: 20 mg Citalopram Hydrobromide (Celexa Tab*) 40 mg PO 0800 ON LICENSE OF [facility] Last Admin: 01/05/19 11:01 Dose: 40 mg Heparin Sodium (Porcine) (Heparin Vial(*)) 5,000 units SUBCUT Q12HR ON LICENSE OF [facility] Last Admin: 01/05/19 11:05 Dose: 5,000 units Piperacillin Sod/Tazobactam (Sod 3.375 gm/ Sodium Chloride) 100 mls @ 25 mls/ hr IVPB Q8H ON LICENSE OF [facility] Last Admin: 01/05/19 10:40 Dose: 25 mls/hr Levothyroxine Sodium (Synthroid Inj*) 37.5 mcg IV 0600 ON LICENSE OF [facility] Last Admin: 01/05/19 05:37 Dose: 37.5 mcg Oxybutynin Chloride (Ditropan Tab*) 5 mg PO 0800,1300,2000 ON LICENSE OF [facility] Last Admin: 01/05/19 11:43 Dose: 5 mg Pantoprazole Sodium (Protonix Iv*) 40 mg IV Q24H ON LICENSE OF [facility] Last Admin: 01/04/19 18:49 Dose: 40 mg Pharmacy Consult (Zosyn Per Pharmacy*) 1 note FOLLOW UP .ZOSYN PER PHARMACY ON LICENSE OF [facility] Vital Signs - 8 hr 01/05/19 11:23 Temperature 98.4 F Pulse Rate 100 Respiratory 28 Rate Blood Pressure 128/68 (mmHg) O2 Sat by Pulse 93 Oximetry Oxygen Devices in Use Now: None Appearance: alert, NAD Eyes: No Scleral Icterus, PERRLA Ears/Nose/Mouth/Throat: Mucous Membranes Moist Neck: NL Appearance and Movements; NL JVP, Trachea Midline Respiratory: Symmetrical Chest Expansion and Respiratory Effort, - - diminished BS throughout Cardiovascular: NL Sounds; No Murmurs; No JVD, RRR Abdominal: NL Sounds; No Tenderness; No Distention, No Hepatosplenomegaly Extremities: No Clubbing, Cyanosis, - - LLE with +3 pitting edema from the need down Skin: - - warm dry and intact Neurological: - - advanced MS Lines/Tubes/Other Access: Clean, Dry and Intact Perez, Clean, Dry and Intact Other Access - flexiseal Nutrition: Taking PO's Result Diagrams: 01/05/19 06:03 01/05/19 06:03 Microbiology and Other Data: Microbiology 01/04/19 18:04 Aerobic Blood Culture - Preliminary Blood Venous No Growth Day 1 Anaerobic Blood Culture - Preliminary No Growth Day 1 01/04/19 14:48 Aerobic Blood Culture - Preliminary Blood Venous No Growth Day 1 Anaerobic Blood Culture - Preliminary No Growth Day 1 Diagnostic Imaging: Patient Name: ALYSON BUNCH Medical Record#: [id number] Ordering Physician: Su Easton [employer] Acct.#: [id number] : 1950 Age: 68 Sex: M Location: [address] [place] [address] - MEDICAL/TELEMETRY Exam Date: 01/05/19 0600 ADM Status: ADM Nafisa Order Information: ABDOMEN/KUB 1 VW Accession Number: [id number] CPT: 28586 Indication: Abdominal pain. Flat and upright views of the abdomen demonstrates moderately distended loops of small bowel. No dilated loops of bowel are noted. IMPRESSION: Moderately distended loops of colon and small bowel are noted. <Electronically signed by Cheli Van MD in OV> 01/05/19 1156 Dictated By: Cheli Van MD Dictated Date/Time: 01/05/19 1156 Transcribed Date/Time: 01/05/19 1154 Copy to: Assess/Plan/Problems-Billing Assessment: This is a 68 year old male patient with history of advanced MS, tht presents to ED from [facility] with fever, sepsis, TME. - Patient Problems (1) Sepsis Comment: - 2/2 UTI and retention/obstruction/neurogenic bladder - S/P fluid resuscitation, continue empiric zosyn (2) Multiple sclerosis Code(s): G35 - MULTIPLE SCLEROSIS SNOMED Code(s): 39627715 Comment: - Continue baclofen, supportive care, skin and heel precautions (3) Elevated troponin Code(s): R74.8 - ABNORMAL LEVELS OF OTHER SERUM ENZYMES SNOMED Code(s): 957904504 Comment: - Likely 2/2 sepsis and demand ischemia (4) UTI (urinary tract infection) Onset Date: 01/17/15 Comment: - With associated retention, perez changed, puss noted - Proteus, enteroccocus and psuedomonas in culture - continue zosyn and follow susceptibilities, concern for VRE (5) Edema of left lower extremity Code(s): R60.0 - LOCALIZED EDEMA SNOMED Code(s): 697366205 Comment: - No DVT - US indicates May-Thurner Syndrome, discussed with Dr. Prajapati, may benefit from intervention at some point, will address when acute illness improving (6) Confined to bed Code(s): Z74.01 - BED CONFINEMENT STATUS SNOMED Code(s): 362052805 Comment: - 2/2 progressive MS - Supportive care (7) History of BPH Code(s): Z87.438 - PERSONAL HISTORY OF OTHER DISEASES OF MALE GENITAL ORGANS SNOMED Code(s): 270308309 Comment: - perez changed (8) Hyperlipidemia Code(s): E78.5 - HYPERLIPIDEMIA, UNSPECIFIED SNOMED Code(s): 34436191 Comment: - Continue lipitor (9) DVT prophylaxis Onset Date: 01/17/15 Code(s): NAE9549 - SNOMED Code(s): 443922402 Comment: - HSQ (10) DNR (do not resuscitate) Status: Acute Status and Disposition: Inpatient, anticipate back to [facility] when stable.
[2019-01-05] MEDS: Atorvastatin* 10 MG TAB PO SCH (19:45)
[2019-01-05] MEDS: Pantoprazole IV* 40 MG IV SCH (19:45)
[2019-01-06] MEDS: ZOSYN 3.375 GM Q8H per EXTENDED INFUSION IVPB SCH ×6 (02:09→18:12)
[2019-01-06] MEDS: Levothyroxine INJ* 100 MCG/5 ML VIAL IV SCH (05:14)
--- NOTE | 2019-01-06 06:09 | PN ---
Progress Note - Progress Note Date of Service: 01/04/19 Note: Urine culture preliminary grew Proteus, enterococcus and Pseudomonas Patient was admitted to [facility] Nothing further at this time
[2019-01-06] MEDS: Oxybutynin TAB* 5 MG PO SCH ×3 (08:21→20:08)
[2019-01-06] MEDS: Citalopram TAB* 40 MG PO SCH (08:21)
[2019-01-06] MEDS: Aspirin TAB* 325 MG PO SCH (08:21)
[2019-01-06] MEDS: Baclofen TAB* 20 MG PO SCH ×3 (08:21→20:07)
[2019-01-06] MEDS: Heparin VIAL(*) 5000 UNITS/ML VIAL (FIVE THOUSAND) SUBCUT SCH ×2 (08:24→20:08)
[2019-01-06] MEDS: Atorvastatin* 10 MG TAB PO SCH (16:43)
--- NOTE | 2019-01-06 16:58 | PN ---
Subjective Date of Service: 01/06/19 Interval History: Patient seen and examined. Much more awake today, responding to commands, at bedside. Per RN, patient had some coughing with thin liquids today. Afebrile , no complaints. Objective Active Medications: Acetaminophen (Tylenol Tab*) 650 mg PO Q6H PRN PRN Reason: FEVER/PAIN Last Admin: 01/05/19 15:46 Dose: 650 mg Aspirin (Aspirin Tab*) 325 mg PO DAILY [facility] Last Admin: 01/06/19 08:21 Dose: 325 mg Atorvastatin Calcium (Lipitor*) 5 mg PO QPM [facility] Last Admin: 01/06/19 16:43 Dose: 5 mg Baclofen (Lioresal Tab*) 20 mg PO 0800,1300,1999 [facility] Last Admin: 01/06/19 16:43 Dose: 20 mg Citalopram Hydrobromide (Celexa Tab*) 40 mg PO 0800 [facility] Last Admin: 01/06/19 08:21 Dose: 40 mg Heparin Sodium (Porcine) (Heparin Vial(*)) 5,000 units SUBCUT Q12HR [facility] Last Admin: 01/06/19 08:24 Dose: 5,000 units Piperacillin Sod/Tazobactam (Sod 3.375 gm/ Sodium Chloride) 100 mls @ 25 mls/ hr IVPB Q8H [facility] Last Admin: 01/06/19 10:48 Dose: 25 mls/hr Levothyroxine Sodium (Synthroid Inj*) 37.5 mcg IV 0600 [facility] Last Admin: 01/06/19 05:14 Dose: 37.5 mcg Oxybutynin Chloride (Ditropan Tab*) 5 mg PO 0800,1299,1999 [facility] Last Admin: 01/06/19 16:43 Dose: 5 mg Pantoprazole Sodium (Protonix Tab*) 40 mg PO DAILY [facility] Pharmacy Consult (Zosyn Per Pharmacy*) 1 note FOLLOW UP .ZOSYN PER PHARMACY [facility] Vital Signs - 8 hr 01/06/19 01/06/19 11:01 11:24 Temperature 99.2 F 97.8 F Pulse Rate 87 89 Respiratory 20 18 Rate Blood Pressure 128/62 134/70 (mmHg) O2 Sat by Pulse 93 94 Oximetry Oxygen Devices in Use Now: None Appearance: alert, NAD Eyes: No Scleral Icterus, PERRLA Ears/Nose/Mouth/Throat: Mucous Membranes Moist, - - poor dentition Respiratory: Symmetrical Chest Expansion and Respiratory Effort, Clear to Auscultation Cardiovascular: NL Sounds; No Murmurs; No JVD, RRR Abdominal: NL Sounds; No Tenderness; No Distention Extremities: No Clubbing, Cyanosis, - - LLE edema +2 Skin: No Nodules or Sclerosis Neurological: - - alert, general weakness 2/2 MS, primary bed bound Nutrition: - - on CLD Result Diagrams: 01/05/19 06:03 01/05/19 06:03 Microbiology and Other Data: Microbiology 01/04/19 18:04 Aerobic Blood Culture - Preliminary Blood Venous No Growth Day 1 Anaerobic Blood Culture - Preliminary No Growth Day 1 01/04/19 14:48 Aerobic Blood Culture - Preliminary Blood Venous No Growth Day 1 Anaerobic Blood Culture - Preliminary No Growth Day 1 Diagnostic Imaging: Patient Name: ALYSON BUNCH Medical Record#: [id number] Ordering Physician: Su Easton NP Acct.#: [id number] : 1950 Age: 68 Sex: M Location: [address] [place] [address] - MEDICAL/TELEMETRY Exam Date: 01/05/19 06 ADM Status: ADM Nafisa Order Information: ABDOMEN/KUB 1 VW Accession Number: [id number] CPT: 76586 Indication: Abdominal pain. Flat and upright views of the abdomen demonstrates moderately distended loops of small bowel. No dilated loops of bowel are noted. IMPRESSION: Moderately distended loops of colon and small bowel are noted. <Electronically signed by Cheli Van MD in OV> 01/05/19 1156 Dictated By: Cheli Van MD Dictated Date/Time: 01/05/19 1156 Transcribed Date/Time: 01/05/19 1154 Copy to: Assess/Plan/Problems-Billing Assessment: This is a 68 year old male patient with history of advanced MS, tht presents to ED from [facility] with fever, sepsis, TME. - Patient Problems (1) Sepsis Comment: - 2/2 UTI and retention/obstruction/neurogenic bladder - S/P fluid resuscitation, continue empiric zosyn - Resolved (2) Dysphagia Code(s): R13.10 - DYSPHAGIA, UNSPECIFIED SNOMED Code(s): 23143142 Comment: - Likely 2/2 advancing MS - Speech/swallow eval today - Modified diet to puree with nectar thick liquids (3) Multiple sclerosis Code(s): G35 - MULTIPLE SCLEROSIS SNOMED Code(s): 57132029 Comment: - Continue baclofen, supportive care, skin and heel precautions (4) Elevated troponin Code(s): R74.8 - ABNORMAL LEVELS OF OTHER SERUM ENZYMES SNOMED Code(s): 269980095 Comment: - Likely 2/2 sepsis and demand ischemia, no chest pain (5) UTI (urinary tract infection) Onset Date: 01/17/15 Comment: - With associated retention, perez changed, puss noted - Proteus, enteroccocus and psuedomonas in culture - continue zosyn and follow susceptibilities, concern for VRE (6) Edema of left lower extremity Code(s): R60.0 - LOCALIZED EDEMA SNOMED Code(s): 410804688 Comment: - No DVT - US indicates May-Thurner Syndrome, discussed with Dr. Prajapati, may benefit from intervention at some point; discussed with patient and today, he says he has intermittent pain in the LLE, they may want to discuss options with Dr. Prajapati when acute illness is resolved (7) Confined to bed Code(s): Z74.01 - BED CONFINEMENT STATUS SNOMED Code(s): 180095352 Comment: - 2/2 progressive MS - Supportive care, skin precautions (8) History of BPH Code(s): Z87.438 - PERSONAL HISTORY OF OTHER DISEASES OF MALE GENITAL ORGANS SNOMED Code(s): 788392979 Comment: - perez changed (9) Hyperlipidemia Code(s): E78.5 - HYPERLIPIDEMIA, UNSPECIFIED SNOMED Code(s): 47909970 Comment: - Continue lipitor (10) DVT prophylaxis Onset Date: 01/17/15 Code(s): NEX0272 - SNOMED Code(s): 328124417 Comment: - HSQ (11) DNR (do not resuscitate) Status: Acute Status and Disposition: Inpatient, great improvement noted today. DC to [facility] when clinicially optimized.
[2019-01-07] MEDS: ZOSYN 3.375 GM Q8H per EXTENDED INFUSION IVPB SCH ×6 (02:26→20:46)
[2019-01-07] MEDS: Levothyroxine INJ* 100 MCG/5 ML VIAL IV SCH (05:28)
[2019-01-07 09:59] LABS: ABS Basophils 0 10^3/ul (0-0.2); ABS Eosinophils 0.1 10^3/ul (0-0.6); ABS Lymphocytes 0.9 10^3/ul (1.0-4.8); ABS Monocytes 0.6 10^3/ul (0-0.8); ABS Neutrophils 3.8 10^3/ul (1.5-7.7); ABS Nucleated RBC 0 10^3/ul; Eosinophil % 1.9 %; Hematocrit 36 % (42-52); Mean Corpuscular HGB Conc 33 g/dl (31-36); Mean Corpuscular Hemoglobin 31 pg (27-31); Mean Corpuscular Volume 92 fL (80-94); Mean Platelet Volume 8.9 fL (7.4-10.4); Nucleated Red Blood Cells % 0; Platelet Count 222 10^3/ul (150-450); Red Blood Count 3.95 10^6/ul (4.00-5.40); Red Cell Distribution Width 16 % (10.5-15); White Blood Count 5.4 10^3/ul (3.5-10.8)
[2019-01-07 10:15] LABS: Albumin 3.4 g/dL (3.2-5.2); Albumin/Globulin Ratio 1.2 (1-3); BUN/Creatinine Ratio 51.1 (8-20); Calcium 9.1 mg/dL (8.6-10.3); EGFR African American 225.3 (>60); EGFR Non-African American 186.2 (>60); Globulin 2.8 g/dL (2-4); Total Bilirubin 0.6 mg/dL (0.2-1.0); Total Protein 6.2 g/dL (6.4-8.9)
[2019-01-07 10:21] LABS: Potassium 2.6 mmol/L (3.5-5.0)
[2019-01-07] MEDS ORDERED: Potassium Chlor TAB* 20 MEQ TAB.ER PO ONE (11:16)
[2019-01-07] MEDS: KCL 10 MEQ/50 ML IVPREMIX* 10 MEQ/50 ML BAG IV SCH ×2 (11:47→16:15)
[2019-01-07] MEDS: Baclofen TAB* 20 MG PO SCH ×3 (11:51→20:46)
[2019-01-07] MEDS: Citalopram TAB* 40 MG PO SCH (11:51)
[2019-01-07] MEDS: Pantoprazole TAB * 40 MG TAB PO SCH (11:51)
[2019-01-07] MEDS: Aspirin TAB* 325 MG PO SCH (11:51)
[2019-01-07] MEDS: Heparin VIAL(*) 5000 UNITS/ML VIAL (FIVE THOUSAND) SUBCUT SCH ×2 (11:52→20:46)
[2019-01-07] MEDS: Oxybutynin TAB* 5 MG PO SCH (11:57)
--- NOTE | 2019-01-07 16:07 | CONS ---
CONSULTATION REPORT: DATE OF CONSULT: 01/07/19 REASON FOR CONSULT: Abdominal distention. REQUESTING PROVIDER: Briana Mae NP. HISTORY OF PRESENT ILLNESS: This is a very pleasant 68-year-old male who has a past medical history of multiple sclerosis, neurogenic bladder, chronic Alarcon placement, diabetes, hypertension, hyperlipidemia, hypothyroidism, and chronic immobility who initially presented to the hospital with lower abdominal suprapubic pain. He was found to have urinary retention with 1700 cc of urine in his bladder. He had purulent drainage from the Alarcon, but then spiked a fever and had altered mental status and returned to the emergency room from [facility]. The patient states that he moves his bowels roughly every day, at times does not get everything out, and there is occasional straining. He has never had a colonoscopy in the past. He denies any black or blood in the stool. Denies any current abdominal discomfort. He denies any nausea, emesis. Denies any dysphagia, odynophagia. The remainder of the 14-point review of systems was grossly negative. PAST MEDICAL HISTORY: Significant for MS, diabetes, hypertension, hyperlipidemia, GERD, BPH, neurogenic bladder. PAST SURGICAL HISTORY: Back surgery, abdominal surgery, unclear if he actually had a bowel resection. HOME MEDICATIONS: Include: 1. Levothyroxine. 2. Fleet Enema. 3. Milk of Magnesia. 4. Tums. 5. Tramadol. 6. Acetaminophen. 7. Colace. 8. MiraLAX. 9. Ensure. 10. TriCor. 11. Baclofen. 12. Aspirin. 13. Artificial Tears. 14. Pantoprazole. 15. Oxybutynin. 16. Ferrous sulfate. 17. Citalopram. 18. Simvastatin. ALLERGIES: No known drug allergies. FAMILY HISTORY: No family history of GI cancer or IBD. SOCIAL HISTORY: Prior tobacco smoker. Denies alcohol use. REVIEW OF SYSTEMS: Remainder of the 14-point review of systems is grossly negative. PHYSICAL EXAM: Vital Signs: Blood pressure is 148/71, pulse is 83, respiratory rate is 16. He is 94% on room air. Temperature was 99.5 with a T- max of 100.1. In general, he is chronically ill appearing with some temporal wasting. HEENT: Atraumatic, normocephalic. Pupils are equal, round, and reactive to light. Extraocular movements are intact. Conjunctivae are pink. Cardiovascular: Regular rate and rhythm, S1, S2. Respiratory: Diminished at the base. Abdomen: Soft, nontender with mild distention. Bowel sounds positive. Extremities: No clubbing, no cyanosis or edema. Musculoskeletal: Decreased muscle tone and bulk. DIAGNOSTIC STUDIES/LAB DATA: Hemoglobin 12.6; today 12.0, platelet count 222. INR 1.21. Sodium 148, potassium 2.6, chloride 112, BUN is 23, creatinine 0.45. AST is 17, ALT is 16. He had a CT on admission that showed gas-filled rectum measuring 10 cm in greatest dimension. He had followup abdominal films showing diffuse gaseous distention of the bowel without dilatation. ASSESSMENT AND PLAN: This is a 68-year-old male with history of multiple sclerosis who presents with abdominal distention. 1. Abdominal distention, appears to be improved today based on clinical exam. He states he is passing gas at this point. 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 Electrolytes should be optimized, specifically potassium and magnesium to help facilitate bowel movements. Normally, he does not have issues. I discussed that in an ideal situation, colonoscopy would be performed to rule out any obstructing mass or lesions. He states that he has no desire for this currently and does not wish to have an invasive procedure such as colonoscopy at this point. He is relatively asymptomatic with his distention at this point. I think conservative care including hydration and optimization of electrolytes is prudent and I agree with this course. If any further desire for colonoscopy, he can follow up as an outpatient. Would avoid medications that slow the gut. His thyroid was checked and was normal at 2.38. 2. Multiple sclerosis, per primary team. [id number]/[facility] #: [id number] LAURA
--- NOTE | 2019-01-07 17:48 | PN ---
Subjective Date of Service: 01/07/19 Interval History: Patient seen and examined. No acute overnight events. Discussed xray results with patient and his . Pending GI eval at time of examination. Denies fever or chills, no abdominal pain, no n/v. Objective Active Medications: Acetaminophen (Tylenol Tab*) 650 mg PO Q6H PRN PRN Reason: FEVER/PAIN Last Admin: 01/05/19 15:46 Dose: 650 mg Aspirin (Aspirin Tab*) 325 mg PO DAILY [facility] Last Admin: 01/07/19 11:51 Dose: 325 mg Atorvastatin Calcium (Lipitor*) 5 mg PO QPM [facility] Last Admin: 01/06/19 16:43 Dose: 5 mg Baclofen (Lioresal Tab*) 20 mg PO 0800,1300,2000 [facility] Last Admin: 01/07/19 16:17 Dose: 20 mg Citalopram Hydrobromide (Celexa Tab*) 40 mg PO 0800 [facility] Last Admin: 01/07/19 11:51 Dose: 40 mg Heparin Sodium (Porcine) (Heparin Vial(*)) 5,000 units SUBCUT Q12HR [facility] Last Admin: 01/07/19 11:52 Dose: Not Given Piperacillin Sod/Tazobactam (Sod 3.375 gm/ Sodium Chloride) 100 mls @ 25 mls/ hr IVPB Q8H [facility] Last Admin: 01/07/19 14:54 Dose: 25 mls/hr Levothyroxine Sodium (Synthroid Inj*) 37.5 mcg IV 0600 [facility] Last Admin: 01/07/19 05:28 Dose: 37.5 mcg Pantoprazole Sodium (Protonix Tab*) 40 mg PO DAILY [facility] Last Admin: 01/07/19 11:51 Dose: 40 mg Pharmacy Consult (Zosyn Per Pharmacy*) 1 note FOLLOW UP .ZOSYN PER PHARMACY [facility] Oxygen Devices in Use Now: None Appearance: alert, NAD Eyes: No Scleral Icterus, PERRLA Ears/Nose/Mouth/Throat: Mucous Membranes Moist, - - poor dentition Neck: NL Appearance and Movements; NL JVP Respiratory: Symmetrical Chest Expansion and Respiratory Effort, Clear to Auscultation Cardiovascular: NL Sounds; No Murmurs; No JVD, RRR, - - LLE edema Abdominal: NL Sounds; No Tenderness; No Distention, - - flexiseal in place Extremities: No Clubbing, Cyanosis Skin: No Rash or Ulcers Neurological: - - gen'l weakness 2/2 advanced MS, bedbound Nutrition: Taking PO's Result Diagrams: 01/07/19 09:51 01/07/19 09:50 Microbiology and Other Data: Microbiology 01/04/19 18:04 Aerobic Blood Culture - Preliminary Blood Venous No Growth Day 1 Anaerobic Blood Culture - Preliminary No Growth Day 1 01/04/19 14:48 Aerobic Blood Culture - Preliminary Blood Venous No Growth Day 1 Anaerobic Blood Culture - Preliminary No Growth Day 1 Diagnostic Imaging: Patient Name: ALYSON BUNCH Medical Record#: [id number] Ordering Physician: Su Easton [employer]ER[employer] SUPERVISOR Acct.#: [id number] : 1950 Age: 68 Sex: M Location: [address] [place] [address] - MEDICAL/TELEMETRY Exam Date: 01/05/19 0600 ADM Status: ADM Nafisa Order Information: ABDOMEN/KUB 1 VW Accession Number: [id number] CPT: 39908 Indication: Abdominal pain. Flat and upright views of the abdomen demonstrates moderately distended loops of small bowel. No dilated loops of bowel are noted. IMPRESSION: Moderately distended loops of colon and small bowel are noted. <Electronically signed by Cheli Van MD in [place]> 01/05/19 1156 Dictated By: Cheli Van MD Dictated Date/Time: 01/05/19 1156 Transcribed Date/Time: 01/05/19 1154 Copy to: Assess/Plan/Problems-Billing Assessment: This is a 68 year old male patient with history of advanced MS, tht presents to ED from [facility] with fever, sepsis, TME. - Patient Problems (1) Sepsis Comment: - 2/2 UTI and retention/obstruction/neurogenic bladder - S/P fluid resuscitation, continue empiric zosyn per susceptibilities - Resolved (2) Dysphagia Code(s): R13.10 - DYSPHAGIA, UNSPECIFIED SNOMED Code(s): 71504889 Comment: - 2/2 advancing MS and acute illness - Speech/swallow eval recommends modified diet; puree with nectar thick liquids (3) [place]'s syndrome Code(s): K59.8 - OTHER SPECIFIED FUNCTIONAL INTESTINAL DISORDERS SNOMED Code(s ): 90802781 Comment: - Consult with GI appreciated, canceled consult with surgery - Colonoscopy recommended for eval and decompression which patient declines - If abdomen remains benign, will remove flexiseal - Serial abdominal exams (4) Multiple sclerosis Code(s): G35 - MULTIPLE SCLEROSIS SNOMED Code(s): 86339389 Comment: - Continue baclofen, supportive care, skin and heel precautions (5) Elevated troponin Code(s): R74.8 - ABNORMAL LEVELS OF OTHER SERUM ENZYMES SNOMED Code(s): 933347054 Comment: - Likely 2/2 sepsis and demand ischemia, no chest pain (6) UTI (urinary tract infection) Onset Date: 01/17/15 Comment: - With associated retention, perez changed, puss noted - Proteus, enteroccocus and psuedomonas in culture - continue zosyn and follow susceptibilities, concern for VRE (7) Edema of left lower extremity Code(s): R60.0 - LOCALIZED EDEMA SNOMED Code(s): 759192629 Comment: - No DVT - US indicates May-Thurner Syndrome, discussed with Dr. Prajapati, may benefit from intervention at some point; discussed with patient and today, he says he has intermittent pain in the LLE, they may want to discuss options with Dr. Prajapati when acute illness is resolved (8) Confined to bed Code(s): Z74.01 - BED CONFINEMENT STATUS SNOMED Code(s): 294876349 Comment: - 2/2 progressive MS - Supportive care, skin precautions (9) History of BPH Code(s): Z87.438 - PERSONAL HISTORY OF OTHER DISEASES OF MALE GENITAL ORGANS SNOMED Code(s): 374830912 Comment: - perez changed (10) Hyperlipidemia Code(s): E78.5 - HYPERLIPIDEMIA, UNSPECIFIED SNOMED Code(s): 28845001 Comment: - Continue lipitor (11) DVT prophylaxis Onset Date: 01/17/15 Code(s): LIN9090 - SNOMED Code(s): 434127588 Comment: - HSQ (12) DNR (do not resuscitate) Status: Acute Status and Disposition: Inpatient, continues to improve. DC to [facility] when clinicially optimized.
[2019-01-07] MEDS: Atorvastatin* 10 MG TAB PO SCH (18:00)
[2019-01-08] MEDS: ZOSYN 3.375 GM Q8H per EXTENDED INFUSION IVPB SCH ×6 (02:47→18:01)
[2019-01-08] MEDS: Levothyroxine INJ* 100 MCG/5 ML VIAL IV SCH (05:47)
[2019-01-08 06:33] LABS: BUN/Creatinine Ratio 52.6 (8-20); Calcium 8.7 mg/dL (8.6-10.3); EGFR African American 273.8 (>60); EGFR Non-African American 226.3 (>60); Potassium 2.8 mmol/L (3.5-5.0)
[2019-01-08] MEDS: Heparin VIAL(*) 5000 UNITS/ML VIAL (FIVE THOUSAND) SUBCUT SCH ×2 (08:28→21:14)
[2019-01-08] MEDS: Aspirin TAB* 325 MG PO SCH (08:30)
[2019-01-08] MEDS: Pantoprazole TAB * 40 MG TAB PO SCH (08:30)
[2019-01-08] MEDS: Citalopram TAB* 40 MG PO SCH (08:31)
[2019-01-08] MEDS: Baclofen TAB* 20 MG PO SCH ×3 (08:31→18:04)
[2019-01-08] MEDS ORDERED: Potassium Chlor TAB* 20 MEQ TAB.ER PO ONE (08:54)
[2019-01-08] MEDS ORDERED: Magnesium Sulfate 2 GM IV* 2 GM/50 ML BAG IVPB ONE (08:55)
[2019-01-08] MEDS ORDERED: KCL 10 MEQ/50 ML IVPREMIX* 10 MEQ/50 ML BAG ONE (13:06)
[2019-01-08] MEDS: KCL 10 MEQ/50 ML IVPREMIX* 10 MEQ/50 ML BAG IV SCH ×2 (13:10→18:00)
--- NOTE | 2019-01-08 15:54 | PN ---
Subjective Date of Service: 01/08/19 Interval History: Patient seen and examined. Appears to be back at baseline. Abdomen is soft, no distension. Tolerating meals, no fevers. Overall improving. Objective Active Medications: Acetaminophen (Tylenol Tab*) 650 mg PO Q6H PRN PRN Reason: FEVER/PAIN Last Admin: 01/05/19 15:46 Dose: 650 mg Aspirin (Aspirin Tab*) 325 mg PO DAILY [facility] Last Admin: 01/08/19 08:30 Dose: 325 mg Atorvastatin Calcium (Lipitor*) 5 mg PO QPM [facility] Last Admin: 01/07/19 18:00 Dose: 5 mg Baclofen (Lioresal Tab*) 20 mg PO 0800,1300,2000 [facility] Last Admin: 01/08/19 13:13 Dose: 20 mg Citalopram Hydrobromide (Celexa Tab*) 40 mg PO 0800 [facility] Last Admin: 01/08/19 08:31 Dose: 40 mg Heparin Sodium (Porcine) (Heparin Vial(*)) 5,000 units SUBCUT Q12HR [facility] Last Admin: 01/08/19 08:28 Dose: 5,000 units Piperacillin Sod/Tazobactam (Sod 3.375 gm/ Sodium Chloride) 100 mls @ 25 mls/ hr IVPB Q8H [facility] Last Admin: 01/08/19 10:50 Dose: 25 mls/hr Levothyroxine Sodium (Synthroid Inj*) 37.5 mcg IV 0600 [facility] Last Admin: 01/08/19 05:47 Dose: 37.5 mcg Pantoprazole Sodium (Protonix Tab*) 40 mg PO DAILY [facility] Last Admin: 01/08/19 08:30 Dose: 40 mg Pharmacy Consult (Zosyn Per Pharmacy*) 1 note FOLLOW UP .ZOSYN PER PHARMACY [facility] Potassium Chloride (Klor Con Er Tab*) 20 meq PO BID [facility] Vital Signs - 8 hr 01/08/19 01/08/19 11:56 15:15 Temperature 98.0 F 97 F Pulse Rate 66 69 Respiratory 20 20 Rate Blood Pressure 144/65 133/63 (mmHg) O2 Sat by Pulse 97 97 Oximetry Oxygen Devices in Use Now: None Appearance: alert, frail, NAD Eyes: No Scleral Icterus, PERRLA Ears/Nose/Mouth/Throat: Mucous Membranes Moist, - - poor dentition Neck: NL Appearance and Movements; NL JVP, Trachea Midline Respiratory: Symmetrical Chest Expansion and Respiratory Effort, Clear to Auscultation Cardiovascular: NL Sounds; No Murmurs; No JVD, RRR, No Edema Abdominal: NL Sounds; No Tenderness; No Distention, - - flexiseal in place Extremities: No Edema, No Clubbing, Cyanosis, - - heel cushions Skin: No Rash or Ulcers Neurological: Alert and Oriented x 3, - - gen'l weakness 2/2 MS Nutrition: Taking PO's Result Diagrams: 01/07/19 09:51 01/08/19 05:49 Microbiology and Other Data: Microbiology 01/04/19 18:04 Aerobic Blood Culture - Preliminary Blood Venous No Growth Day 1 Anaerobic Blood Culture - Preliminary No Growth Day 1 01/04/19 14:48 Aerobic Blood Culture - Preliminary Blood Venous No Growth Day 1 Anaerobic Blood Culture - Preliminary No Growth Day 1 Diagnostic Imaging: Patient Name: ALYSON BUNCH Medical Record#: [id number] Ordering Physician: Su Easton NP Acct.#: [id number] : 1950 Age: 68 Sex: M Location: [address] [place] [address] - MEDICAL/TELEMETRY Exam Date: 01/05/19 0600 ADM Status: ADM Nafisa Order Information: ABDOMEN/KUB 1 VW Accession Number: [id number] CPT: 99272 Indication: Abdominal pain. Flat and upright views of the abdomen demonstrates moderately distended loops of small bowel. No dilated loops of bowel are noted. IMPRESSION: Moderately distended loops of colon and small bowel are noted. <Electronically signed by Cheli Van MD in [place]> 01/05/19 1156 Dictated By: Cheli Van MD Dictated Date/Time: 01/05/19 1156 Transcribed Date/Time: 01/05/19 1154 Copy to: Assess/Plan/Problems-Billing Assessment: This is a 68 year old male patient with history of advanced MS, tht presents to ED from [facility] with fever, sepsis, TME. - Patient Problems (1) Sepsis Comment: - 2/2 UTI and retention/obstruction/neurogenic bladder - S/P fluid resuscitation, continue empiric zosyn per susceptibilities - Resolved (2) UTI (urinary tract infection) Onset Date: 01/17/15 Comment: - With associated retention, perez changed, puss noted - Proteus, enteroccocus and psuedomonas in culture - Continue zosyn day 4, very limited choices for PO antibiotics (3) Dysphagia Code(s): R13.10 - DYSPHAGIA, UNSPECIFIED SNOMED Code(s): 65716456 Comment: - 2/2 advancing MS and acute illness - Speech/swallow eval recommends modified diet; puree with nectar thick liquids (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 - OTHER SPECIFIED FUNCTIONAL INTESTINAL DISORDERS SNOMED Code(s ): 95858294 Comment: - Consult with GI appreciated, canceled consult with surgery - Colonoscopy recommended for eval and decompression which patient declines - Remove flexiseal today and monitor abdomen and stool output (5) Multiple sclerosis Code(s): G35 - MULTIPLE SCLEROSIS SNOMED Code(s): 48976158 Comment: - Continue baclofen, supportive care, skin and heel precautions (6) Elevated troponin Code(s): R74.8 - ABNORMAL LEVELS OF OTHER SERUM ENZYMES SNOMED Code(s): 703538323 Comment: - Likely 2/2 sepsis and demand ischemia, no chest pain (7) Edema of left lower extremity Code(s): R60.0 - LOCALIZED EDEMA SNOMED Code(s): 348213925 Comment: - No DVT - US indicates May-Thurner Syndrome, discussed with Dr. Prajapati, may benefit from intervention at some point; discussed with patient and today, he says he has intermittent pain in the LLE, they may want to discuss options with Dr. Prajapati when acute illness is resolved (8) Confined to bed Code(s): Z74.01 - BED CONFINEMENT STATUS SNOMED Code(s): 265967122 Comment: - 2/2 progressive MS - Supportive care, skin precautions (9) History of BPH Code(s): Z87.438 - PERSONAL HISTORY OF OTHER DISEASES OF MALE GENITAL ORGANS SNOMED Code(s): 240116634 Comment: - perez changed (10) Hyperlipidemia Code(s): E78.5 - HYPERLIPIDEMIA, UNSPECIFIED SNOMED Code(s): 16012523 Comment: - Continue lipitor (11) DVT prophylaxis Onset Date: 01/17/15 Code(s): FMQ8101 - SNOMED Code(s): 053842933 Comment: - HSQ (12) DNR (do not resuscitate) Status: Acute Status and Disposition: Inpatient, continues to improve. DC to [facility] when clinically optimized and antibiotic course is complete.
[2019-01-08] MEDS: Atorvastatin* 10 MG TAB PO SCH (18:04)
[2019-01-08] MEDS: Potassium Chlor TAB* 20 MEQ TAB.ER PO SCH (21:14)
[2019-01-09] MEDS: ZOSYN 3.375 GM Q8H per EXTENDED INFUSION IVPB SCH ×6 (03:19→18:20)
[2019-01-09] MEDS: Levothyroxine INJ* 100 MCG/5 ML VIAL IV SCH (05:44)
[2019-01-09] MEDS: Heparin VIAL(*) 5000 UNITS/ML VIAL (FIVE THOUSAND) SUBCUT SCH ×2 (09:58→20:09)
[2019-01-09] MEDS: Pantoprazole TAB * 40 MG TAB PO SCH (09:58)
[2019-01-09] MEDS: Potassium Chlor TAB* 20 MEQ TAB.ER PO SCH ×2 (09:58→20:09)
[2019-01-09] MEDS: Aspirin TAB* 325 MG PO SCH (09:58)
[2019-01-09] MEDS: Citalopram TAB* 40 MG PO SCH (09:58)
[2019-01-09] MEDS: Baclofen TAB* 20 MG PO SCH ×3 (09:58→20:09)
[2019-01-09] MEDS ORDERED: Senna TAB PO PRN (10:54)
--- NOTE | 2019-01-09 10:56 | PN ---
Subjective Date of Service: 01/09/19 Interval History: No overnight events. Rectal tube removed last evening. No stool output since then. Denies abdominal pain. Unsure if he is passing gas. Tolerating PO. No Nausea. No CP Objective Active Medications: Acetaminophen (Tylenol Tab*) 650 mg PO Q6H PRN PRN Reason: FEVER/PAIN Last Admin: 01/05/19 15:46 Dose: 650 mg Aspirin (Aspirin Tab*) 325 mg PO DAILY [facility] Last Admin: 01/09/19 09:58 Dose: 325 mg Atorvastatin Calcium (Lipitor*) 5 mg PO QPM [facility] Last Admin: 01/08/19 18:04 Dose: 5 mg Baclofen (Lioresal Tab*) 20 mg PO 0800,1300,2000 [facility] Last Admin: 01/09/19 09:58 Dose: 20 mg Citalopram Hydrobromide (Celexa Tab*) 40 mg PO 0800 [facility] Last Admin: 01/09/19 09:58 Dose: 40 mg Docusate Sodium (Colace Cap*) 100 mg PO BID [facility] Heparin Sodium (Porcine) (Heparin Vial(*)) 5,000 units SUBCUT Q12HR [facility] Last Admin: 01/09/19 09:58 Dose: 5,000 units Piperacillin Sod/Tazobactam (Sod 3.375 gm/ Sodium Chloride) 100 mls @ 25 mls/ hr IVPB Q8H [facility] Last Admin: 01/09/19 10:48 Dose: 25 mls/hr Levothyroxine Sodium (Synthroid Inj*) 37.5 mcg IV 0600 [facility] Last Admin: 01/09/19 05:44 Dose: 37.5 mcg Pantoprazole Sodium (Protonix Tab*) 40 mg PO DAILY [facility] Last Admin: 01/09/19 09:58 Dose: 40 mg Pharmacy Consult (Zosyn Per Pharmacy*) 1 note FOLLOW UP .ZOSYN PER PHARMACY [facility] Potassium Chloride (Klor Con Er Tab*) 20 meq PO BID [facility] Last Admin: 01/09/19 09:58 Dose: 20 meq Senna (Senokot Tab*) 1 tab PO BEDTIME PRN PRN Reason: CONSTIPATION Vital Signs - 8 hr 01/09/19 01/09/19 04:03 08:22 Temperature 97.8 F 97.5 F Pulse Rate 64 70 Respiratory 16 18 Rate Blood Pressure 148/76 150/64 (mmHg) O2 Sat by Pulse 95 95 Oximetry Oxygen Devices in Use Now: None Appearance: NAD Ears/Nose/Mouth/Throat: - - mucus membranes dry, poor dentition Respiratory: Symmetrical Chest Expansion and Respiratory Effort, - - diminished breath sounds Cardiovascular: NL Sounds; No Murmurs; No JVD, RRR Abdominal: - - hypoactive bowel sounds, mild distention and mildly firm, nontender Extremities: No Edema, - - contracted lower ext, edema > LLE Neurological: Alert and Oriented x 3, - - 1/5 movement in LLE 0/5 RLE. Weak and symmetric upper ext b/l Result Diagrams: 01/07/19 09:51 01/08/19 05:49 Microbiology and Other Data: Microbiology 01/04/19 18:04 Aerobic Blood Culture - Preliminary Blood Venous No Growth Day 1 Anaerobic Blood Culture - Preliminary No Growth Day 1 01/04/19 14:48 Aerobic Blood Culture - Preliminary Blood Venous No Growth Day 1 Anaerobic Blood Culture - Preliminary No Growth Day 1 Diagnostic Imaging: Patient Name: ALYSON BUNCH Medical Record#: [id number] Ordering Physician: Su Easton ANIMAL REHABILITATOR Acct.#: [id number] : 1950 Age: 68 Sex: M Location: [address] [place] [address] - MEDICAL/TELEMETRY Exam Date: 01/05/19 0600 ADM Status: ADM Nafisa Order Information: ABDOMEN/KUB 1 VW Accession Number: [id number] CPT: 26450 Indication: Abdominal pain. Flat and upright views of the abdomen demonstrates moderately distended loops of small bowel. No dilated loops of bowel are noted. IMPRESSION: Moderately distended loops of colon and small bowel are noted. <Electronically signed by Cheli Van MD in [facility]> 01/05/19 115 Dictated By: Cheli Van MD Dictated Date/Time: 01/05/19 1156 Transcribed Date/Time: 01/05/19 1154 Copy to: Assess/Plan/Problems-Billing Assessment: This is a 68 year old male patient with history of advanced MS, neurogenic bladder with indwelling perez, [facility]t [facility], [facility] and 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 - Patient Problems (1) UTI (urinary tract infection) due to urinary indwelling Perez catheter Current Visit: No Status: Acute Code(s): T83.51XA - ; N39.0 - URINARY TRACT INFECTION, SITE NOT SPECIFIED SNOMED Code(s): 717882352 Comment: A. Improving on Zosyn started on 01/04 - Enterococcus, proteus and pseudomonas Perez changed CT scan showed multiple chunky calcifications in b/l collecting system Plan Continue Zosyn day 5 Renal and bladder ultrasound (2) Dysphagia Current Visit: Yes Status: Acute Code(s): R13.10 - DYSPHAGIA, UNSPECIFIED SNOMED Code(s): 73572776 Comment: - 2/2 advancing MS and acute illness - Speech/swallow eval recommends modified diet; puree with nectar thick liquids (3) Edema of left lower extremity Current Visit: Yes Status: Acute Code(s): R60.0 - LOCALIZED EDEMA SNOMED Code(s): 652825429 Comment: - No DVT - US indicates May-Thurner Syndrome, discussed with Dr. Prajapati, may benefit from intervention at some point; discussed with patient and today, he says he has intermittent pain in the LLE, they may want to discuss options with Dr. Prajapati when acute illness is resolved (4) Karval's syndrome Current Visit: Yes Status: Acute Code(s): K59.8 - OTHER SPECIFIED FUNCTIONAL INTESTINAL DISORDERS SNOMED Code(s): 52605858 Comment: A. - Consult with GI appreciated - Colonoscopy recommended for eval and decompression which patient declines - Remove flexiseal on 01/08 and monitor abdomen and stool output Will start standing colace and prn senna. Monitor stool output Check labs today (5) Sepsis Current Visit: Yes Status: Acute Comment: - 2/2 UTI and retention/obstruction/neurogenic bladder - S/P fluid resuscitation, continue empiric zosyn per susceptibilities - Resolved (6) DNR (do not resuscitate) Current Visit: No Status: Acute (7) Elevated troponin Current Visit: No Status: Acute Code(s): R74.8 - ABNORMAL LEVELS OF OTHER SERUM ENZYMES SNOMED Code(s): 257871513 Comment: - Likely 2/2 sepsis and demand ischemia, no chest pain (8) DVT prophylaxis Current Visit: No Status: Acute Onset Date: 01/17/15 Code(s): DML7920 - SNOMED Code(s): 652298075 Comment: - HSQ (9) Hypothyroid Current Visit: No Status: Acute Code(s): E03.9 - HYPOTHYROIDISM, UNSPECIFIED SNOMED Code(s): 34154426 Comment: - Continue levothyroxine (10) Protein-calorie malnutrition, severe Current Visit: No Status: Acute Code(s): E43 - UNSPECIFIED SEVERE PROTEIN- CALORIE MALNUTRITION SNOMED Code(s): 756637658 Comment: Nutrition consult (11) History of BPH Current Visit: No Status: Chronic Code(s): Z87.438 - PERSONAL HISTORY OF OTHER DISEASES OF MALE GENITAL ORGANS SNOMED Code(s): 278726047 Comment: - perez changed (12) Hx of hyperlipidemia Current Visit: No Status: Chronic Code(s): Z86.39 - PERSONAL HISTORY OF ENDO , NUTRITIONAL AND METABOLIC DISEASE SNOMED Code(s): 706172175 (13) Multiple sclerosis Current Visit: No Status: Chronic Code(s): G35 - MULTIPLE SCLEROSIS SNOMED Code(s): 41028367 Comment: - Continue baclofen, supportive care, skin and heel precautions (14) Type 2 diabetes mellitus Current Visit: No Status: Chronic Comment: Diet controlled. Monitor with BMP checks. Status and Disposition: Inpatient, continues to improve. DC to [facility] when clinically optimized and antibiotic course is complete.
[2019-01-09] MEDS: Docusate CAP* 100 MG PO SCH ×2 (12:51→20:09)
[2019-01-09 13:34] LABS: BUN/Creatinine Ratio 47.6 (8-20); Calcium 9.1 mg/dL (8.6-10.3); EGFR Non-African American 201.6 (>60); Magnesium 1.9 mg/dL (1.9-2.7); Potassium 3.9 mmol/L (3.5-5.0)
[2019-01-09] MEDS: Atorvastatin* 10 MG TAB PO SCH (18:20)
[2019-01-10] MEDS: ZOSYN 3.375 GM Q8H per EXTENDED INFUSION IVPB SCH ×6 (02:22→17:39)
[2019-01-10] MEDS: Levothyroxine INJ* 100 MCG/5 ML VIAL IV SCH (06:11)
[2019-01-10 07:13] LABS: BUN/Creatinine Ratio 53.1 (8-20); Calcium 8.6 mg/dL (8.6-10.3); EGFR African American 333.9 (>60); EGFR Non-African American 275.9 (>60); Magnesium 1.6 mg/dL (1.9-2.7); Potassium 3.5 mmol/L (3.5-5.0)
[2019-01-10] MEDS: Pantoprazole TAB * 40 MG TAB PO SCH (08:08)
[2019-01-10] MEDS: Aspirin TAB* 325 MG PO SCH (08:08)
[2019-01-10] MEDS: Baclofen TAB* 20 MG PO SCH ×3 (08:08→21:31)
[2019-01-10] MEDS: Docusate CAP* 100 MG PO SCH ×2 (08:08→21:32)
[2019-01-10] MEDS: Potassium Chlor TAB* 20 MEQ TAB.ER PO SCH ×2 (08:08→21:31)
[2019-01-10] MEDS: Heparin VIAL(*) 5000 UNITS/ML VIAL (FIVE THOUSAND) SUBCUT SCH ×2 (08:09→21:33)
[2019-01-10] MEDS: Citalopram TAB* 40 MG PO SCH (08:09)
[2019-01-10] MEDS ORDERED: Magnesium Sulfate 2 GM IV* 2 GM/50 ML BAG IVPB ONE (08:58)
[2019-01-10] MEDS: Atorvastatin* 10 MG TAB PO SCH (17:39)
--- NOTE | 2019-01-10 18:48 | PN ---
Subjective Date of Service: 01/10/19 Interval History: Resting in bed. Reports he feels improved since admission. Continues to have lower abd pain but reports it has improved since admission. Per nursing documentation, patient had a bowel movement today. Objective Active Medications: Acetaminophen (Tylenol Tab*) 650 mg PO Q6H PRN PRN Reason: FEVER/PAIN Last Admin: 01/05/19 15:46 Dose: 650 mg Aspirin (Aspirin Tab*) [address] [facility] Last Admin: 01/10/19 08:08 Dose: 325 mg Atorvastatin Calcium (Lipitor*) [address] [facility] Last Admin: 01/10/19 17:39 Dose: 5 mg Baclofen (Lioresal Tab*) 20 mg PO 0800,1300,2000 [facility] Last Admin: 01/10/19 12:21 Dose: 20 mg Citalopram Hydrobromide (Celexa Tab*) [address] [facility] Last Admin: 01/10/19 08:09 Dose: 40 mg Docusate Sodium (Colace Cap*) [address] [facility] Last Admin: 01/10/19 08:08 Dose: 100 mg Heparin Sodium (Porcine) (Heparin Vial(*)) 5,[address] [facility] Last Admin: 01/10/19 08:09 Dose: 5,000 units Piperacillin Sod/Tazobactam (Sod 3.375 gm/ Sodium Chloride) 100 mls @ 25 mls/ hr IVPB Q8H [facility] Last Admin: 01/10/19 17:39 Dose: 25 mls/hr Levothyroxine Sodium (Synthroid Inj*) 37.[address] [facility] Last Admin: 01/10/19 06:11 Dose: 37.5 mcg Pantoprazole Sodium (Protonix Tab*) [address] [facility] Last Admin: 01/10/19 08:08 Dose: 40 mg Pharmacy Consult (Zosyn Per Pharmacy*) 1 note FOLLOW UP .ZOSYN PER PHARMACY [facility] Potassium Chloride (Klor Con Er Tab*) [address] [facility] Last Admin: 01/10/19 08:08 Dose: 20 meq Senna (Senokot Tab*) 1 tab PO BEDTIME PRN PRN Reason: CONSTIPATION Vital Signs - 8 hr 01/10/19 01/10/19 11:16 15:55 Temperature 97.2 F 97.6 F Pulse Rate 66 67 Respiratory 20 18 Rate Blood Pressure 124/71 138/76 (mmHg) O2 Sat by Pulse 96 96 Oximetry Oxygen Devices in Use Now: None Appearance: NAD Eyes: No Scleral Icterus Ears/Nose/Mouth/Throat: Clear Oropharnyx, Mucous Membranes Moist Neck: NL Appearance and Movements; NL JVP Respiratory: Symmetrical Chest Expansion and Respiratory Effort, Clear to Auscultation Cardiovascular: NL Sounds; No Murmurs; No JVD, RRR, No Edema Abdominal: NL Sounds; No Tenderness; No Distention Lymphatic: No Cervical Adenopathy Extremities: No Edema Skin: No Rash or Ulcers Neurological: - - Alert and oriented x2. Nutrition: Taking PO's Result Diagrams: 01/07/19 09:51 01/10/19 06:33 Additional Lab and Data: Laboratory Results - last 24 hr 01/10/19 06:33 Sodium 143 Potassium 3.5 Chloride 113 H Carbon Dioxide 24 Anion Gap 6 BUN 17 Creatinine 0.32 L Est GFR ( Amer) 333.9 Est GFR (Non-Af Amer) 275.9 BUN/Creatinine Ratio 53.1 H Glucose 117 H Calcium 8.6 Magnesium 1.6 L Microbiology and Other Data: Microbiology 01/04/19 18:04 Blood Venous Aerobic Blood Culture - Final No Growth Day 5 01/04/19 18:04 Blood Venous Anaerobic Blood Culture - Final No Growth Day 5 01/04/19 14:48 Blood Venous Aerobic Blood Culture - Final No Growth Day 5 01/04/19 14:48 Blood Venous Anaerobic Blood Culture - Final No Growth Day 5 Assess/Plan/Problems-Billing Assessment: This is a 68 year old male patient with history of advanced MS, neurogenic bladder with indwelling perez, tht presents to ED from [facility] sepsis, UTI and 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 - Patient Problems (1) UTI (urinary tract infection) due to urinary indwelling Perez catheter Comment: - Improving on Zosyn started on 01/04 - Enterococcus, proteus and pseudomonas Perez changed - CT scan showed multiple chunky calcifications in b/l collecting system - Continue Zosyn day 6 - Renal and bladder ultrasound revealed bilat non obstructing kidney stones, mild left pelviectasis, bladder calculus; no hydro or other signs of obstruction (such as strainding on CT) (2) Sepsis Comment: - 2/2 UTI and retention/obstruction/neurogenic bladder - S/P fluid resuscitation, continue zosyn per susceptibilities - Resolved (3) Dysphagia Comment: - 2/2 advancing MS and acute illness - Speech/swallow eval recommends modified diet; puree with nectar thick liquids (4) Edema of left lower extremity Comment: - No DVT - US indicates May-Thurner Syndrome, discussed with Dr. Prajapati, may benefit from intervention at some point; discussed with patient and today, he says he has intermittent pain in the LLE, they may want to discuss options with Dr. Prajapati when acute illness is resolved (5) Favio's syndrome Comment: - Consult with GI appreciated - Colonoscopy recommended for eval and decompression which patient declines - Removed flexiseal on 01/08 and monitor abdomen and stool output - Will start standing colace and prn senna. - Monitor stool output. BM today per nursing documentation (6) Elevated troponin Comment: - Likely 2/2 sepsis and demand ischemia, no chest pain (7) Hypothyroid Comment: - Continue levothyroxine (8) Protein-calorie malnutrition, severe Comment: - Nutrition consult (9) History of BPH Comment: - perez changed (10) Hx of hyperlipidemia Comment: - Cont statin (11) Multiple sclerosis Comment: - Continue baclofen, supportive care, skin and heel precautions (12) Type 2 diabetes mellitus Comment: - Diet controlled. Monitor with BMP checks. (13) DVT prophylaxis Comment: - HSQ Status and Disposition: Inpatient, continues to improve. DC to [facility] when clinically optimized and antibiotic course is complete. Attending: Liang Jackson
[2019-01-11] MEDS: ZOSYN 3.375 GM Q8H per EXTENDED INFUSION IVPB SCH ×6 (02:17→18:00)
[2019-01-11] MEDS: Levothyroxine INJ* 100 MCG/5 ML VIAL IV SCH (05:28)
[2019-01-11 06:53] LABS: BUN/Creatinine Ratio 47.2 (8-20); Calcium 8.9 mg/dL (8.6-10.3); EGFR African American 291.4 (>60); EGFR Non-African American 240.9 (>60); Magnesium 1.8 mg/dL (1.9-2.7)
[2019-01-11] MEDS: Heparin VIAL(*) 5000 UNITS/ML VIAL (FIVE THOUSAND) SUBCUT SCH ×2 (08:26→20:38)
[2019-01-11] MEDS: Baclofen TAB* 20 MG PO SCH ×3 (08:27→20:36)
[2019-01-11] MEDS: Docusate CAP* 100 MG PO SCH ×2 (08:27→20:26)
[2019-01-11] MEDS: Pantoprazole TAB * 40 MG TAB PO SCH (08:27)
[2019-01-11] MEDS: Potassium Chlor TAB* 20 MEQ TAB.ER PO SCH ×2 (08:27→20:35)
[2019-01-11] MEDS: Citalopram TAB* 40 MG PO SCH (08:28)
[2019-01-11] MEDS: Aspirin TAB* 325 MG PO SCH (08:28)
[2019-01-11] MEDS ORDERED: Magnesium Sulfate 2 GM IV* 2 GM/50 ML BAG IVPB ONE (08:41)
[2019-01-11] MEDS: Atorvastatin* 10 MG TAB PO SCH (17:32)
--- NOTE | 2019-01-11 17:58 | PN ---
Subjective Date of Service: 01/11/19 Interval History: Resting in bed on assessment. Reports he feels improved since admission. Reports he occasionally has lower abd pain, but much improved since admission. He is unsure of last BM, but per nursing documentation he had a medium BM today. Denies chest pain, sob, palpitations, nausea, vomiting, fever, chills. Objective Active Medications: Acetaminophen (Tylenol Tab*) 650 mg PO Q6H PRN PRN Reason: FEVER/PAIN Last Admin: 01/05/19 15:46 Dose: 650 mg Aspirin (Aspirin Tab*) 325 mg PO DAILY [facility] Last Admin: 01/11/19 08:28 Dose: 325 mg Atorvastatin Calcium (Lipitor*) 5 mg PO QPM [facility] Last Admin: 01/11/19 17:32 Dose: 5 mg Baclofen (Lioresal Tab*) 20 mg PO 0800,1300,2000 [facility] Last Admin: 01/11/19 13:08 Dose: 20 mg Citalopram Hydrobromide (Celexa Tab*) 40 mg PO 0800 [facility] Last Admin: 01/11/19 08:28 Dose: 40 mg Docusate Sodium (Colace Cap*) 100 mg PO BID [facility] Last Admin: 01/11/19 08:27 Dose: 100 mg Heparin Sodium (Porcine) (Heparin Vial(*)) 5,000 units SUBCUT Q12HR [facility] Last Admin: 01/11/19 08:26 Dose: 5,000 units Piperacillin Sod/Tazobactam (Sod 3.375 gm/ Sodium Chloride) 100 mls @ 25 mls/ hr IVPB Q8H [facility] Last Admin: 01/11/19 11:35 Dose: 25 mls/hr Levothyroxine Sodium (Synthroid Inj*) 37.5 mcg IV 0600 [facility] Last Admin: 01/11/19 05:28 Dose: 37.5 mcg Pantoprazole Sodium (Protonix Tab*) 40 mg PO DAILY [facility] Last Admin: 01/11/19 08:27 Dose: 40 mg Pharmacy Consult (Zosyn Per Pharmacy*) 1 note FOLLOW UP .ZOSYN PER PHARMACY [facility] Potassium Chloride (Klor Con Er Tab*) 20 meq PO BID [facility] Last Admin: 01/11/19 08:27 Dose: 20 meq Senna (Senokot Tab*) 1 tab PO BEDTIME PRN PRN Reason: CONSTIPATION Vital Signs - 8 hr 01/11/19 01/11/19 11:07 15:16 Temperature 97.8 F 97.8 F Pulse Rate 76 74 Respiratory 16 18 Rate Blood Pressure 137/59 134/73 (mmHg) O2 Sat by Pulse 97 97 Oximetry Oxygen Devices in Use Now: None Appearance: Comfortable Eyes: No Scleral Icterus Ears/Nose/Mouth/Throat: Clear Oropharnyx, Mucous Membranes Moist Neck: NL Appearance and Movements; NL JVP Respiratory: Symmetrical Chest Expansion and Respiratory Effort, Clear to Auscultation Cardiovascular: NL Sounds; No Murmurs; No JVD, RRR, No Edema Abdominal: NL Sounds; No Tenderness; No Distention, - - No CVA tenderness Lymphatic: No Cervical Adenopathy Extremities: No Clubbing, Cyanosis Skin: No Rash or Ulcers Neurological: Alert and Oriented x 3 Nutrition: Taking PO's Result Diagrams: 01/07/19 09:51 01/11/19 06:21 Additional Lab and Data: Laboratory Results - last 24 hr 01/11/19 06:21 Sodium 139 Potassium 4.0 Chloride 109 Carbon Dioxide 25 Anion Gap 5 BUN 17 Creatinine 0.36 L Est GFR ( Amer) 291.4 Est GFR (Non-Af Amer) 240.9 BUN/Creatinine Ratio 47.2 H Glucose 118 H Calcium 8.9 Magnesium 1.8 L Microbiology and Other Data: Microbiology 01/04/19 18:04 Blood Venous Aerobic Blood Culture - Final No Growth Day 5 01/04/19 18:04 Blood Venous Anaerobic Blood Culture - Final No Growth Day 5 01/04/19 14:48 Blood Venous Aerobic Blood Culture - Final No Growth Day 5 01/04/19 14:48 Blood Venous Anaerobic Blood Culture - Final No Growth Day 5 Diagnostic Imaging: . 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 Will have complete abx by tonight. - Renal and bladder ultrasound revealed bilat non obstructing kidney stones, mild left pelviectasis, bladder calculus; no hydro or other signs of obstruction (such as strainding on CT) (2) Sepsis Comment: - 2/2 UTI and retention/obstruction/neurogenic bladder - S/P fluid resuscitation, continue zosyn per susceptibilities - Resolved (3) Dysphagia Comment: - 2/2 advancing MS and acute illness - Speech/swallow eval recommends modified diet; puree with nectar thick liquids (4) Edema of left lower extremity Comment: - No DVT - US indicates May-Thurner Syndrome, discussed with Dr. Prajapati, may benefit from intervention at some point; discussed with patient and today, he says he has intermittent pain in the LLE, they may want to discuss options with Dr. Prajapati when acute illness is resolved (5) Favio's syndrome Comment: - Consult with GI appreciated - Colonoscopy recommended for eval and decompression which patient declines - Removed flexiseal on 01/08 and monitor abdomen and stool output - Standing colace and prn senna. - Monitor stool output. BM today per nursing documentation (6) Elevated troponin Comment: - Likely 2/2 sepsis and demand ischemia, no chest pain (7) Hypothyroid Comment: - Continue levothyroxine (8) Protein-calorie malnutrition, severe Comment: - Nutrition consult (9) History of BPH Comment: - perez changed (10) Hx of hyperlipidemia Comment: - Cont statin (11) Multiple sclerosis Comment: - Continue baclofen, supportive care, skin and heel precautions (12) Type 2 diabetes mellitus Comment: - Diet controlled. Monitor with BMP checks. (13) DVT prophylaxis Comment: - HSQ Status and Disposition: Inpatient, continues to improve. DC to [facility] when clinically optimized and antibiotic course is complete. Attending: Aguila Perez
--- NOTE | 2019-01-11 19:11 | CONS ---
CC: Lilliana Damon NP; Dr. Davila * CONSULTATION REPORT: DATE OF CONSULT: 01/11/19 PHYSICIAN REQUESTING CONSULTATION: Lilliana Damon NP CONSULTING SERVICE: Infectious Disease. Dr. Florinda Torrse * (dictated by Haritha Ibarra NP) REASON FOR CONSULT: Catheter-acquired urinary tract infection in a patient with neurogenic bladder secondary to MS with multiple organisms found in the urine culture. IMPRESSION: 1. Catheter-acquired urinary tract infection. Initially, Mr. Beck presented to the emergency room with complaints of lower abdominal pain and was found to have urinary retention with 1700 mL of urine in his bladder when his Perez catheter was exchanged. He initially received 2 g of IV ceftriaxone and was discharged back to [facility], but when he was febrile, they sent him back. He was noted to be febrile at [facility] per the reports with a fever of 101.6 and again in the emergency room. He was also found to be tachycardic. Urine was obtained at the time of the perez catheter exchange showing, 2+ blood, 3+ leukocyte esterase, 3+ wbc's, 3+ rbc's. This was sent for culture, which grew Proteus mirabilis > 100,000, Enterococcus faecalis > 100,000, and Pseudomonas aeruginosa 25,000 to 50,000. Blood cultures are negative on day 5. I suspect the UTI is secondary to Perez catheter obstruction. 2. Multiple sclerosis with neurogenic bladder and chronic indwelling urinary catheter. 3. Benign prostatic hypertrophy, on oxybutynin. 4. Altered mental status, suspected to be secondary to toxic metabolic encephalopathy, suspected related to urinary tract infection, and severe sepsis. 5. Severe sepsis, present on admission, now resolved. 6. Diabetes mellitus, diet controlled. RECOMMENDATIONS: Continue Zosyn to complete 7-day course; this will end tomorrow at which point he can be discharged back to [facility]. No further antibiotics are needed. HISTORY OF PRESENT ILLNESS: Mr. Beck is a 68-year-old male with past medical history significant for multiple sclerosis and neurogenic bladder and chronic indwelling urinary catheter, diabetes, which is diet controlled, hypertension, hyperlipidemia, BPH, GERD, hypothyroidism who presented to the emergency room initially on the morning of 01/11/19 with lower abdominal pain and was found to have urinary retention and had his urinary catheter exchanged. At that time, he was given 2 g of IV ceftriaxone and was discharged back to [facility]. Upon returning to [facility], he was found to be febrile with a temperature of 101.6 and altered mental status. He was referred back to the emergency room for further evaluation. While in the emergency room, he was found to be febrile with temperature of 101.6 and he was tachycardic with blood pressure of 109/77. He was admitted to the hospital and placed on Zosyn. He has had blood cultures with no growth on day 5. His urine culture returned showing Proteus mirabilis, Enterococcus faecalis, and Pseudomonas aeruginosa. The patient is now afebrile and the tachycardia has resolved. He has no tachypnea. His sepsis has resolved. Mr. Beck denies fever, chills, shortness of breath, abdominal pain. He states that he has low back pain, bu this is a chronic issue for him. He states that he is feeling much better than when he was admitted. PAST MEDICAL HISTORY: 1. Multiple sclerosis. 2. Diabetes mellitus, type 2, which is diet controlled. 3. Hypertension. 4. Hyperlipidemia. 5. GERD. 6. BPH. 7. Neurogenic bladder with chronic indwelling urinary catheter. 8. History of back surgery. 9. History of abdominal surgery. MEDICATIONS: Home medications include: 1. Levothyroxine 75 mcg oral daily. 2. Fleet Enema p.r. as needed for constipation. 3. Milk of magnesia 30 mL every 6 hours as needed for constipation. 4. Tums 500 mg oral every 4 hours as needed for indigestion. 5. Tramadol 50 mg oral every 6 hours as needed. 6. Acetaminophen 650 mg oral every 6 hours as needed for fever or pain. 7. Colace 200 mg oral daily. 8. MiraLAX 17 g oral daily. 9. Ensure Plus 1 bottle 3 times daily. 10. TriCor 145 mg oral daily. 11. Baclofen 20 mg at 8 a.m., 1 p.m., and 8 p.m. 12. Aspirin 325 mg oral daily. 13. Artificial tears 2 drops to both eyes twice daily. 14. Pantoprazole 40 mg oral every morning. 15. Oxybutynin 5 mg at 8 a.m., 1 p.m., and 8 p.m. 16. Ferrous sulfate 325 mg oral daily. 17. Citalopram 40 mg oral daily. 18. Simvastatin 10 mg oral daily. Hospital medications include: 1. Acetaminophen 650 mg oral every 6 hours as needed for fever or pain. 2. Aspirin 325 mg oral daily. 3. Atorvastatin 5 mg oral every evening. 4. Baclofen 20 mg oral 3 times a day. 5. Celexa 40 mg oral daily. 6. Colace 100 mg oral twice daily. 7. Heparin 5000 units subcutaneous every 12 hours. 8. Levothyroxine 37.5 mcg IV daily. 9. Pantoprazole 40 mg oral daily. 10. Zosyn 3.375 g every 8 hours. 11. Potassium chloride 20 mEq oral twice daily. 12. Senna 1 tablet oral daily. ALLERGIES: No known drug allergies. FAMILY HISTORY: Unable to obtain from the patient, but according to records, father with a history of coronary artery disease and diabetes. No family history of cancer. SOCIAL HISTORY: He is a former smoker. He states that he quit smoking 10 years ago. Prior to that, he had a 1 pack a day smoking history. He denies alcohol, recreational drug use. REVIEW OF SYSTEMS: I performed a 14-point review of systems. All the pertinent positives and negatives are mentioned in the history of present illness. The remaining review of systems is negative. PHYSICAL EXAM: Vital Signs: Temperature 97.8, heart rate 74, respiratory rate 18, O2 sat 97% on room air, blood pressure 134/73. General Appearance: The patient is alert, chronically ill appearing, appears in no acute distress. HEENT: Normocephalic, atraumatic. Oral mucosa is moist. Neck is supple. There is no lymphadenopathy. Respiratory: There is no accessory muscle use. Lungs are clear to auscultation bilateral. Cardiovascular: Regular rate and rhythm. S1, S2 present. There are no murmurs, rubs, or gallops heard. Abdomen is soft , distended, nontender. There are bowel sounds present x4. Extremities: No lower extremity edema. Neurological: Alert and oriented to person. Skin: There are no rashes or abnormalities seen of the exposed skin. LABORATORY DATA: White blood cell count 5.4, hemoglobin 12, platelet count 222. Creatinine 0.36. Please see impression and recommendations outlined above. TIME SPENT: Time for this consultation 45 minutes, and half of that was spent with the patient discussing medications, past medical history and the events leading up to her arrival today, and performing a physical examination. The case has been reviewed with the attending Dr. Torres and he agrees with the plan of care. Thank you for this consultation. Reviewed by VIVI PADGETT 01/12/19 [id number] #: [id number] MTDD
--- NOTE | 2019-01-12 01:07 | DS ---
ADDENDUM NOW INCLUDED ON THIS REPORT CC: [facility] * DISCHARGE SUMMARY: DATE OF ADMISSION: 01/04/19 DATE OF DISCHARGE: 01/12/19 PRIMARY CARE PROVIDER: [facility]. ATTENDING PHYSICIAN: Dr. Aguila Perez * (dictated by Addi Madden NP) PRIMARY DIAGNOSES: 1. Altered mental status. 2. Urinary tract infection. 3. Dysphasia. 4. Edema to left lower extremity. 5. [place]'s syndrome. 6. Sepsis. 7. Elevated troponin. SECONDARY DIAGNOSES: 1. Hypothyroid. 2. Protein-calorie malnutrition. 3. History of bilateral prostatic hypertrophy. 4. History of hyperlipidemia. 5. Multiple sclerosis. 6. Type 2 diabetes. CONSULTATIONS WHILE IN THE HOSPITAL: Dr. Navarro of Gastroenterology; Dr. Jack of Surgery; Dr. Torres of Infectious Disease. PROCEDURES WHILE IN THE HOSPITAL: No procedures. STUDIES WHILE IN THE HOSPITAL: 1. Chest x-ray on 01/04/19, impression: No radiographic evidence of acute cardiopulmonary abnormality on this portable chest x- ray. Air-filled loops of transverse colon measuring up to 9.4 cm in diameter. Please correlate to signs and symptoms of bowel obstruction. 2. Abdomen and pelvis CT obtained on 01/04/19, impression: Linear base density at bilateral lung bases and small pleural effusions that are similar to previous CT examination. Mostly gas filled dilated rectum measuring 10 cm in the greatest axial dimension. Scobey calcifications seen in bilateral collecting systems of the urinary bladder without definite johana hydronephrosis. The patient was catheterized, there was gas in the lumen of the bladder, which could be due to Alarcon catheter. Chronic and degenerative changes as described in the body of the report. 3. Transthoracic echocardiogram, impression: Left ventricular chamber size is normal. Septal wall hypertrophy and relative septal hypokinesis. Global left ventricular wall motion and contractility are within normal limits. Estimated ejection fraction is 60% to 65%. Right ventricular wall thickness is mildly increased and systolic function is normal. Mild aortic regurgitation, aortic valve sclerosis. Posterior mitral annular calcifications. Trace to mild mitral regurgitation. Mild tricuspid regurgitation. Mild dilatation of ascending aorta at 3.6 cm. Trivial pericardial effusion is visualized up to 0.4 cm. Not compared to previous echo as there was no echo to compare. 4. Abdominal x-ray obtained 01/05/19, impression: Mildly distended loops of colon and small bowel are noted. 5. Venous Doppler study, impression: No sonographic evidence of deep vein thrombosis. Sonographic findings are consistent with subcutaneous edema from the knee down. 6. Abdominal x-ray obtained 01/06/19, impression: Diffuse gaseous distention of the bowel without dilatation. The differential include ileus versus early distal obstruction, or colonic pseudoobstruction. Recommend continued attention to followup imaging. 7. Abdomen and bladder ultrasound, impression: Bilateral nephrolithiasis. Mild left pelviectasis. Bladder calculus. Again, noted the complex lesion of the right lower liver, similar to size on previous examinations, but a more cystic appearance on the current examination. DISCHARGE HOME MEDICATIONS: New home medications: No new home medications. Continued home medications: 1. Levothyroxine 75 mcg p.o. daily. 2. Fleet Enema p.r.n. as needed for constipation. 3. Milk of mag 30 mL q.6 hours as needed. 4. Tums 500 mg p.o. q.4 hours as needed. 5. Tramadol 50 mg p.o. q.6 hours as needed. 6. Acetaminophen 650 mg p.o. q.6 hours as needed for pain or fever. 7. Colace 200 mg p.o. daily. 8. MiraLAX 17 g p.o. daily. 9. Ensure Plus 1 bottle x3 days. 10. TriCor 145 mg p.o. daily. 11. Baclofen 20 mg at 0800, 1300, and 1999. 12. Aspirin 325 mg p.o. daily. 13. Artificial tears 2 drops to both eyes b.i.d. 14. Pantoprazole 40 mg p.o. q.a.m. 15. Oxybutynin 5 mg at 0800, 1300, and 2000. 16. Ferrous sulfate 325 mg at 1300. 17. Citalopram 40 mg p.o. at 8 a.m. 18. Simvastatin 10 mg p.o. q.p.m. Changed home medications: No change in home medications. Discontinued home medications: No home medications discontinued. HISTORY OF PRESENT ILLNESS/HOSPITAL COURSE: Mr. Beck is a 68-year-old male who carries a past medical history significant for MS; neurogenic bladder, on chronic Alarcon placement; diabetes, which is diet controlled; hypertension; hyperlipidemia; BPH; GERD; hypothyroid, who presented to the emergency room on 01/04/19 on 2 separate occasions, initially for abdominal pain and urinary retention secondary to blocked Alarcon. Second occasion was due to fever and altered mental status. Please see history and physical dictated by Su Easton NP, for complete summary of events leading up to the hospitalization, but in short, the patient presented to the emergency room x2 initially for a blocked Alarcon catheter, which was changed and secondly for fever and altered mental status. While in the emergency department, he was found to have a temperature of 101.6, he was tachycardic and his blood pressure was 109/77. Due to altered mental status and fever, he was admitted to the hospital for further evaluation and treatment. During this hospital stay, the patient was treated for toxic metabolic encephalopathy secondary to urinary tract infection, severe sepsis. He was given fluid bolus in the emergency room and he received Zosyn for the entirety of his stay. The patient's altered mental status improved and he is now at his baseline. The patient's sepsis improved as his vital signs are stable. During this hospital stay, the patient also was evaluated by Speech Therapy due to dysphasia and they recommended the patient modified diet with puree and nectar thick liquids. The patient was also evaluated due to edema of left lower extremity. He was found to have no DVT. The patient's presentation and symptoms were discussed with Dr. Prajapati and symptoms and ultrasound indicate May -Thurner syndrome. It was recommended that the patient may benefit from intervention at some point. Hospitalist staff talked to the patient and and since the pain in his left lower extremity is intermittent, they wanted to discuss options with Dr. Prajapati when the acute illness has resolved. The patient was also evaluated by GI due to findings on CT and abdominal x-rays. The CT and x-ray findings were suspected to be due to Favio's syndrome. GI recommended a colonoscopy for evaluation and decompression, which the patient declined. The patient initially had a Flexi-Seal, which was removed on . At which time, the patient was also started on standing Colace and p.r.n. senna. Per nursing documentation, the patient has had bowel movement the past 2 days. Finally, during this admission, the patient was initially noted to have an elevated troponin at 1.12. The patient's troponins were trended and declined to 0.73. The patient never complained of chest pain and has remained on telemetry in sinus rhythm with occasional PACs. It was suspected the elevation of his troponin was secondary to sepsis and demand ischemia. The patient is stable for discharge today as he has completed a complete course of Zosyn antibiotic for UTI secondary to obstructed urinary indwelling Alarcon catheter. He is hemodynamically stable with a temp of 97.1, HR 68, RR 18, O2 saturation 97% on room air, BP 130/67. REVIEW OF SYSTEMS: The patient reports occasional lower abdominal pain that is intermittent and much improved from previous days. The patient is nontender to palpation. The patient denies lower extremity pain. The patient denies chest pain, shortness of breath, palpitations, cough, nausea, vomiting, fever, chills. 14 point ROS completed and all others negative PHYSICAL EXAMINATION: General: Mr. Beck is a 68-year-old male who is lying in bed, appears to be in no acute distress, appears stated age. HEENT: EOMs intact. PERRLA. Oral mucosa is moist without lesions. Neck: Supple. No lymphadenopathy. Respiratory: Lungs are clear to auscultation. No wheezes, rubs or rhonchi. Good aeration. Cardiac: S1, S2 present. No murmurs, rubs, or gallops. Regular rate and rhythm. Abdomen: Abdomen is soft, nontender to palpation. Bowel sounds x4. No CVA tenderness. Extremities: No pain or deformities. No edema noted. Neuro: The patient is alert and oriented. No focal deficits noted. Skin: Skin is intact. DIAGNOSTIC STUDIES/LAB DATA: WBC 5.4, hemoglobin 12, hematocrit 36, platelets 222. Sodium 139, potassium 4.0, chloride 109, carbon dioxide 25, BUN 17, creatinine 0.36, glucose 118. DISCHARGE PLAN/FOLLOWUP: 1. Urinary tract infection due to obstructed urinary indwelling Alarcon catheter : As mentioned above, the patient has completed a full course of Zosyn. I discussed this with Infectious Disease, who also evaluated the patient and agreed with this treatment. The patient will not need to be discharged on antibiotics at this time. The patient should continue to have routine Alarcon changes and Alarcon care. If any new or worsening symptoms, the patient should return to the emergency department immediately. The patient should be encouraged to drink water and stay hydrated. 2. Dysphasia: Given the patient's evaluation with Speech, I would recommend that the patient continue a puree with nectar thick liquid diet. 3. Edema of lower extremity: There is no edema noted today and the patient denies pain, but given the result of the ultrasound and possible May-Thurner syndrome, I would encourage the patient to follow up with Dr. Prajapati when he and his feel ready to discuss options. 4. [place]'s syndrome: As mentioned in HPI, the patient did receive a consult from GI. It was recommended that the patient have a colonoscopy, which he declined. If the patient changes his mind, he should follow up with Dr. Navarro. The patient to continue his bowel regimen and his abdomen and stool output should be monitored. It should be noted that patient's magnesium was often below normal limits during this patient's stay, therefore, he needed IV replacement. Due to [place] syndrome, it would be important to continue to optimize his electrolytes, specifically potassium and magnesium to help facilitate bowel movements. Therefore, I have ordered the patient did have magnesium oxide 400 mg p.o. b.i.d. and follow up with his primary care provider for repeat BMP with magnesium in 2 to 3 weeks. 5. Sepsis: Sepsis has resolved and the patient currently hemodynamically stable. 6. Elevated troponin: As previously mentioned, this is suspected to be secondary to demand ischemia due to sepsis. The patient is asymptomatic. If the patient ever were to complain of chest pain, the patient should return to the emergency department as soon as possible. 7. Hypothyroid: The patient should continue his levothyroxine as same. 8. Protein-calorie malnutrition: The patient should continue protein rich diet. The patient would benefit from a nutrition consult. 9. History of bilateral prostatic hypertrophy: The patient should continue Alarcon changes routinely. In addition, the patient should have Alarcon care. 10. History of hyperlipidemia: The patient should continue statin medication. 11. Diabetes, type 2: This is currently diet controlled, therefore, the patient should continue healthy diabetic diet. PLAN: This plan was discussed with my attending, Dr. Perez, who agreed with my plan. TIME SPENT: Approximately 35 minutes was spent on this discharge, greater than half that time was spent [id number] with the patient discussing discharge plan and instructions. ADDI MADDEN, [employer] [id number]/[facility] #: [id number]/CPS #: [id number] [facility]
[2019-01-12] MEDS: ZOSYN 3.375 GM Q8H per EXTENDED INFUSION IVPB SCH ×4 (02:12→12:37)
[2019-01-12] MEDS: Levothyroxine INJ* 100 MCG/5 ML VIAL IV SCH (05:07)
[2019-01-12] MEDS: Docusate CAP* 100 MG PO SCH (07:27)
[2019-01-12] MEDS: Baclofen TAB* 20 MG PO SCH ×2 (07:27→12:37)
[2019-01-12] MEDS: Pantoprazole TAB * 40 MG TAB PO SCH (07:27)
[2019-01-12] MEDS: Potassium Chlor TAB* 20 MEQ TAB.ER PO SCH (07:27)
[2019-01-12] MEDS: Citalopram TAB* 40 MG PO SCH (07:27)
[2019-01-12] MEDS: Heparin VIAL(*) 5000 UNITS/ML VIAL (FIVE THOUSAND) SUBCUT SCH (07:27)
[2019-01-12] MEDS: Aspirin TAB* 325 MG PO SCH (07:27)
[2019-01-12] MEDS ORDERED: Magnesium Sulfate 2 GM IV* 2 GM/50 ML BAG IVPB ONE (08:19)
--- NOTE | 2019-01-12 09:53 | DS ---
DISCHARGE SUMMARY: ADDENDUM: It should be noted that patient's magnesium was often below normal limits during this patient's stay, therefore, he needed IV replacement. 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 Therefore, I have ordered the patient did have magnesium oxide 400 mg p.o. b.i.d. and follow up with his primary care provider for repeat BMP with magnesium in 2 to 3 weeks. ADDI MADDEN, REJI [id number]/[facility] #: [id number] LAURA
[2019-01-12 12:41] VITALS: BP 132/43
== END 2019-01-12 14:38 | DRG 698 ==
LOC: ED 14:13 → MEDTELE 17:31 → OBSVTOIN 01-05 12:00
PROVIDERS: ADMIT Internal Medicine; ATTEND Internal Medicine
PROC: 0T2BX0Z Change Drainage Device in Bladder, External Approach (ICD-10-PCS; principal; 2019-01-05)
DX: T83.518A Infection and inflammatory reaction due to other urinary catheter, initial encounter (principal); A41.9 Sepsis, unspecified organism; R65.20 Severe sepsis without septic shock; G92 Toxic encephalopathy; E43 Unspecified severe protein-calorie malnutrition; N39.0 Urinary tract infection, site not specified; I24.8 Other forms of acute ischemic heart disease; K56.699 Other intestinal obstruction unspecified as to partial versus complete obstruction; I31.3 Pericardial effusion (noninflammatory); Y73.8 Miscellaneous gastroenterology and urology devices associated with adverse incidents, not elsewhere classified; E78.5 Hyperlipidemia, unspecified; I10 Essential (primary) hypertension; E11.51 Type 2 diabetes mellitus with diabetic peripheral angiopathy without gangrene; K21.9 Gastro-esophageal reflux disease without esophagitis; N31.9 Neuromuscular dysfunction of bladder, unspecified; B95.2 Enterococcus as the cause of diseases classified elsewhere; B96.4 Proteus (mirabilis) (morganii) as the cause of diseases classified elsewhere; B96.5 Pseudomonas (aeruginosa) (mallei) (pseudomallei) as the cause of diseases classified elsewhere; R40.2362 Coma scale, best motor response, obeys commands, at arrival to emergency department; R40.2142 Coma scale, eyes open, spontaneous, at arrival to emergency department; Z66 Do not resuscitate; R60.0 Localized edema; R40.2242 Coma scale, best verbal response, confused conversation, at arrival to emergency department; R33.8 Other retention of urine; N20.0 Calculus of kidney; N21.0 Calculus in bladder; R13.10 Dysphagia, unspecified; I08.3 Combined rheumatic disorders of mitral, aortic and tricuspid valves; I77.819 Aortic ectasia, unspecified site; E03.9 Hypothyroidism, unspecified; F32.9 Major depressive disorder, single episode, unspecified; N40.0 Benign prostatic hyperplasia without lower urinary tract symptoms; G35 Multiple sclerosis; F41.9 Anxiety disorder, unspecified; R62.50 Unspecified lack of expected normal physiological development in childhood; E11.36 Type 2 diabetes mellitus with diabetic cataract; Z98.41 Cataract extraction status, right eye; Z85.038 Personal history of other malignant neoplasm of large intestine; Z87.442 Personal history of urinary calculi; Y92.9 Unspecified place or not applicable; Z74.01 Bed confinement status; Z83.3 Family history of diabetes mellitus; Z87.891 Personal history of nicotine dependence; Z68.20 Body mass index [BMI] 20.0-20.9, adult; Z79.82 Long term (current) use of aspirin
CPT/HCPCS: 36415; 71045; 74018; 74176; 76770; 80048; 80053; 80061; 81003; 83605; 83735; 84443; 84484; 85025; 85060; 85610; 85730; 86140; 87040; 93005; 93306; 99284; A9270-GY; J1644; J1940; J2543; J3475; J3480

== ENCOUNTER 2019-02-09 23:08 | Emergency (ER) | payer MEDICARE, BC, OTHER ==
--- NOTE | 2019-02-09 23:43 | ED ---
Abdominal Pain/Male - HPI Summary HPI Summary: This patient is a 68 year old M brought in by ambulance from [facility] to ED with a chief complaint of lower abdominal pain since earlier today. The patient rates the pain 5/10 in severity. Symptoms aggravated by nothing. Symptoms alleviated by nothing. [facility] also reports decreased urine output in his catheter. - History of Current Complaint Chief Complaint: EDUrogenitalProblems Stated Complaint: ABD PAIN PER EMS Time Seen by Provider: 02/09/19 23:23 [facility]x [facility] Onset/Duration: Sudden Onset, Lasting Hours, Still Present Timing: Constant, Lasting Hours Severity Initially: Moderate Severity Currently: Moderate Pain Intensity: 5 Pain Scale Used: 0-10 Numeric Location: Other - lower abdominal pain Aggravating Factor(s): Nothing Alleviating Factor(s): Nothing - Allergies/Home Medications Allergies/Adverse Reactions: Allergies Allergy/AdvReac Type Severity Reaction Status Date / Time No Known Allergies Allergy Verified 02/09/19 23:29 PMH/Surg Hx/FS Hx/Imm Hx Endocrine/Hematology History: Reports: Hx Diabetes - diet controlled, Hx Thyroid Disease - hypothyroid, Hx Anemia - Iron deficiency Cardiovascular History: Reports: Hx Hypercholesterolemia, Hx Hypertension, Hx Peripheral Vascular Disease - POOR LOWER LEG CIRCULATION Denies: Hx Pacemaker/ICD, Other Cardiovascular Problems/Disorders Respiratory History: Denies: Other Respiratory Problems/Disorders GI History: Reports: Hx Gastroesophageal Reflux Disease, Hx Gastrointestinal Bleed, Other GI Disorders - COLON CA, Constipation History: Reports: Hx Kidney Infection, Hx Kidney Stones, Other Problems/ Disorders - HYDRONEPHROSIS & PYELONEPHROSIS,chronic perez-neurogenic bladder,BPH Musculoskeletal History: Reports: Hx Arthritis, Other Musculoskeletal History - Multiple Sclerosis, Dysphagia, difficulty speaking Sensory History: Reports: Hx Cataracts Denies: Hx Contacts or Glasses, Hx Glaucoma, Hx Hearing Aid Opthamlomology History: Reports: Hx Cataracts Denies: Hx Contacts or Glasses, Hx Glaucoma Neurological History: Reports: Hx Developmental Delay, Hx Nerve Disease - Multiple Sclerosis, Other Neuro Impairments/Disorders - Benign Paroxysmal Vertigo Psychiatric History: Reports: Hx Anxiety Denies: Hx Panic Disorder - Cancer History Cancer Type, Location and Year: colon cancer Hx Chemotherapy: No - Surgical History Surgery Procedure, Year, and Place: CATARACTS RIGHT EYE, 1997, [facility] [place],. HERNIATED DISC, , [facility] [place]. 2009 DIAG LAPAROSCOPY, LAPAROTOMY WITH SMALL BOWEL MESENTERIC MASS RESECTION, [facility] [place]. 06/2013 CYSTOSCOPY, BILATERAL RETROGRADE, URETEROSCOPY, FRAGMENTATION AND REMOVAL LEFT URETERAL CALCULUS, BILATERAL STENT INSERTION, [facility] [place]. 08/2013 CYSTOSCOPY, BILATERAL STENT REMOVAL, [facility] [place]. 08/2015 CYSTOSCOPY, URETHERAL DILATION, FRAGMENT OF BLADDER CALCULI, REMOVAL OF SUPRAPUBIC CATHETER, [facility] [place]. 10/2016 CYSTOSCOPY, URETHRAL DILATION, INSERTION OF KEWEENAW TIP CATHETER, [facility] [place] Hx Anesthesia Reactions: No - per EMR [facility] [place] as of 2012 - Immunization History Date of Tetanus Vaccine: Unk Date of Influenza Vaccine: Fall 2013 Infectious Disease History: No Infectious Disease History: Denies: Traveled Outside the [place] in Last 30 Days - Family History Known Family History: Positive: Diabetes Negative: Other - prostate CA - Social History Alcohol Use: None Alcohol Amount: unk Hx Substance Use: No Substance Use Type: Reports: None Substance Use Comment - Amount & Last Used: unk Hx Tobacco Use: Yes Smoking Status (MU): Former Smoker Type: Cigarettes Have You Smoked in the Last Year: No Review of Systems Positive: Abdominal Pain - lower abdominal pain Positive: other - decreased urine output in catheter All Other Systems Reviewed And Are Negative: Yes Physical Exam - Summary Physical Exam Summary: VITAL SIGNS: Reviewed. GENERAL: Patient is a well-developed and nourished MALE who is lying comfortable in the stretcher. Patient is not in any acute respiratory distress. HEAD AND FACE: No signs of trauma. No ecchymosis, hematomas or skull depressions. No sinus tenderness. EYES: PERRLA, EOMI x 2, No injected conjunctiva, no nystagmus. EARS: Hearing grossly intact. Ear canals and tympanic membranes are within normal limits. MOUTH: Oropharynx within normal limits. NECK: Supple, trachea is midline, no adenopathy, no JVD, no carotid bruit, no c- spine tenderness, neck with full ROM. CHEST: Symmetric, no tenderness at palpation LUNGS: Clear to auscultation bilaterally. No wheezing or crackles. CVS: Regular rate and rhythm, S1 and S2 present, no murmurs or gallops appreciated. ABDOMEN: Soft, non-tender. Abdominal distension, suprapubic dullness on percussion. No masses palpated. Bowel sounds are normal. EXTREMITIES: FROM in all major joints, no edema, no cyanosis or clubbing. Muscle atrophy at baseline. NEURO: Alert and oriented x 3. No acute neurological deficits. Speech is normal and follows commands. SKIN: Dry and warm Triage Information Reviewed: Yes Vital Signs On Initial Exam: Initial Vitals Temp Pulse Resp BP Pulse Ox 98.4 F 110 16 149/101 93 02/09/19 23:20 02/09/19 23:20 02/09/19 23:20 02/09/19 23:20 02/09/19 23:20 Vital Signs Reviewed: Yes Diagnostics - Vital Signs Vital Signs Temp Pulse Resp BP Pulse Ox 02/09/19 23:20 98.4 F 110 16 149/101 93 - Laboratory Lab Statement: Any lab studies that have been ordered have been reviewed, and results considered in the medical decision making process. Abdominal Pain Male Course/Dx - Course Assessment/Plan: This patient is a 68 year old M brought in by ambulance from [facility] to ED with a chief complaint of lower abdominal pain since earlier today. The perez was flushed by the ED nurse and is now draining urine. The patient will be discharged with dx of perez malfunction. Patient understands and agrees with this plan. - Diagnoses Differential Diagnosis/HQI/PQRI: Other - perez malfunction Provider Diagnoses: Malfunction of Perez catheter Discharge - Sign-Out/Discharge Documenting (check all that apply): Patient Departure - discharge Patient Received Moderate/Deep Sedation with Procedure: No - Discharge Plan Condition: Stable Disposition: HOME Patient Education Materials: Perez Catheter Placement and Care (ED) Referrals: Samantha Davila MD [Primary Care Provider] - (Follow up in 1-2 days.) Additional Instructions: PLEASE RETURN TO THE ED TO IMMEDIATELY FOR WORSENING OR CONCERNING SYMPTOMS. - Billing Disposition and Condition Condition: STABLE Disposition: Home - Attestation Statements Document Initiated by Scribe: Yes Documenting Scribe: Krzysztof Macias Provider For Whom Rebecca is Documenting (Include Credential): Bree Orozco MD Scribe Attestation: Krzysztof Figueredo, scribed for Bree Orozco MD on 02/10/19 at 0605. Scribe Documentation Reviewed: Yes Provider Attestation: The documentation as recorded by the Krzysztof slaughter accurately reflects the service I personally performed and the decisions made by me, Bree Orozco MD Status of Scribe Document: Viewed
[2019-02-10 00:27] VITALS: BP 129/91
== END 2019-02-10 02:14 | disposition home or self-care (01) ==
LOC: ED 23:08
DX: T83.091A Other mechanical complication of indwelling urethral catheter, initial encounter (principal); Z87.891 Personal history of nicotine dependence; R10.30 Lower abdominal pain, unspecified
CPT/HCPCS: 99283

== ENCOUNTER 2019-02-12 01:18 | Emergency (ER) | payer MEDICARE, BC, OTHER ==
[2019-02-12] MEDS ORDERED: Ondansetron INJ* 2 MG/ML VIAL IV ONE (01:29)
[2019-02-12] MEDS ORDERED: Morphine 4 MG/ML VIAL (1 ml) 4 MG/ML VIAL IV ONE (01:29)
[2019-02-12] MEDS ORDERED: NS 0.9% 1000 ML** 1,000 ML IV ONE ×2 (01:29→02:40)
--- NOTE | 2019-02-12 01:32 | ED ---
GI/ HPI - HPI Summary HPI Summary: Pt is a 68 y/o male brought in by EMS who presents to the ED c/o hematuria. He was sent here from [facility]. Pt has a chronic Perez catheter in place and it was replaced by Dr. Chris yesterday morning. The nursing staff at [facility] noted a distended abdomen, hematuria, lower abdominal pain to palpation, and decreased urinary output yesterday afternoon. They deny any fever. PMHx kidney infections, kidney stones, UTI, hydronephrosis, BPH, and neurogenic bladder. Pt is a level 5 caveat due to his MS. - History of Current Complaint Stated Complaint: "BLOOD IN HIS CATHETER" PER EMS Hx Obtained From: Patient, EMS, Medical Records Hx From Patient Unobtainable Due To: Other - MS Onset/Duration: Started Days Ago - Yesterday afternoon, Still Present Timing: Constant Location of Pain: Diffuse Associated Signs and Symptoms: Positive: Hematuria Aggravating Factor(s): Nothing Alleviating Factor(s): Nothing - Additional Pertinent History Primary Care Physician: SHAMIKA - Allergy/Home Medications Allergies/Adverse Reactions: Allergies Allergy/AdvReac Type Severity Reaction Status Date / Time No Known Allergies Allergy Verified 02/09/19 23:29 Home Medications: Home Medications Ceftin TAB 250 MG(*) 500 mg PO BID 02/12/19 [History Confirmed 02/12/19] Lactulose* 30 ml PO DAILY PRN 02/12/19 [History Confirmed 02/12/19] PMH/Surg Hx/FS Hx/Imm Hx Endocrine/Hematology History: Reports: Hx Diabetes - diet controlled, Hx Thyroid Disease - hypothyroid, Hx Anemia - Iron deficiency Cardiovascular History: Reports: Hx Hypercholesterolemia, Hx Hypertension, Hx Peripheral Vascular Disease - POOR LOWER LEG CIRCULATION Denies: Hx Pacemaker/ICD, Other Cardiovascular Problems/Disorders Respiratory History: Denies: Other Respiratory Problems/Disorders GI History: Reports: Hx Gastroesophageal Reflux Disease, Hx Gastrointestinal Bleed, Other GI Disorders - COLON CA, Constipation History: Reports: Hx Kidney Infection, Hx Kidney Stones, Other Problems/ Disorders - HYDRONEPHROSIS & PYELONEPHROSIS,chronic perez-neurogenic bladder,BPH Musculoskeletal History: Reports: Hx Arthritis, Other Musculoskeletal History - Multiple Sclerosis, Dysphagia, difficulty speaking Sensory History: Reports: Hx Cataracts Denies: Hx Contacts or Glasses, Hx Glaucoma, Hx Hearing Aid Opthamlomology History: Reports: Hx Cataracts Denies: Hx Contacts or Glasses, Hx Glaucoma Neurological History: Reports: Hx Developmental Delay, Hx Nerve Disease - Multiple Sclerosis, Other Neuro Impairments/Disorders - Benign Paroxysmal Vertigo Psychiatric History: Reports: Hx Anxiety Denies: Hx Panic Disorder - Cancer History Cancer Type, Location and Year: colon cancer Hx Chemotherapy: No - Surgical History Surgery Procedure, Year, and Place: CATARACTS RIGHT EYE, [place], [facility] [place] HERNIATED DISC, , [facility] [place]. 2009 DIAG LAPAROSCOPY, LAPAROTOMY WITH SMALL BOWEL MESENTERIC MASS RESECTION, [facility] [place]. 06/2013 CYSTOSCOPY, BILATERAL RETROGRADE, URETEROSCOPY, FRAGMENTATION AND REMOVAL LEFT URETERAL CALCULUS, BILATERAL STENT INSERTION, [facility] [place]. 08/2013 CYSTOSCOPY, BILATERAL STENT REMOVAL, [facility] [place]. 08/2015 CYSTOSCOPY, URETHERAL DILATION, FRAGMENT OF BLADDER CALCULI, REMOVAL OF SUPRAPUBIC CATHETER, [facility] [place]. 10/2016 CYSTOSCOPY, URETHRAL DILATION, INSERTION OF [place] TIP CATHETER, [facility] [place] Hx Anesthesia Reactions: No - per EMR [facility] [place] as of 2012 - Immunization History Date of Tetanus Vaccine: Unk Date of Influenza Vaccine: Fall 2013 Infectious Disease History: Denies: Traveled Outside the [place] in Last 30 Days - Family History Known Family History: Positive: Diabetes Negative: Other - prostate CA - Social History Alcohol Use: None Alcohol Amount: unk Hx Substance Use: No Substance Use Type: Reports: None Substance Use Comment - Amount & Last Used: unk Hx Tobacco Use: Yes Smoking Status (MU): Former Smoker Type: Cigarettes Have You Smoked in the Last Year: No Review of Systems Negative: Fever Positive: Abdominal Pain, Other - abdomen distended Positive: hematuria, other - decreased urinary output All Other Systems Reviewed And Are Negative: No Physical Exam - Summary Physical Exam Summary: Appearance: chronically-ill appearing, no pain distress Skin: warm, dry, reflects adequate perfusion Head/face: normal Eyes: EOMI, KIM ENT: mucous membranes moist Neck: supple, non-tender Respiratory: CTA, breath sounds present, harsh dry cough Cardiovascular: tachycardic but regular rhythm, pulses symmetrical Abdomen: grossly distended, bladder not distended on US, indwelling Perez catheter, blood-tinged urine in Perez bag, diffuse tenderness, infraumbilical surgical scar Bowel Sounds: quiet Musculoskeletal: normal, strength/ROM intact Neuro: alert and oriented to person and place only, contractured extremities, answers simple questions, no new deficits Triage Information Reviewed: Yes Vital Signs Reviewed: Yes Completion Of Physical Exam Limited Due To: Level 5 - MS Diagnostics - Laboratory Result Diagrams: 02/12/19 02:00 02/12/19 02:00 Lab Statement: Any lab studies that have been ordered have been reviewed, and results considered in the medical decision making process. - Radiology Abdomen XR Radiology Interpretation Completed By: ED Physician Summary of Radiographic Findings: Persistently distended colon. Pending official radiology report. - Ultrasound No standard instances Ultrasound Interpretation Completed By: ED Physician Summary of Ultrasound Findings: US performed at bedside by ED physician. Bladder US: bladder empty. GIGU Course/Dx - Course Course Of Treatment: Nurse's notes reviewed. Patient was sent in for possible blocked Perez catheter after it was changed less than 1 day ago. The patient was found to have a functional catheter however maybe decreased urine output from dehydration. He has chronically and grossly distended abdomen from ileus/ megacolon related to his neurogenic bowels. He was given 2 L of IV fluids, 1 g of IV Rocephin given the recent instrumentation and a poorly draining Perez bag was changed. We have discussed the possibility of having urology place a suprapubic catheter or entertaining hospice care discussions with the family and the patient. - Diagnoses Differential Diagnoses - Male: Other - UTI, small bowel obstruction, dehydration , sepsis, bacteremia Provider Diagnoses: Dehydration, Multiple sclerosis, Chronic UTI Discharge - Sign-Out/Discharge Documenting (check all that apply): Patient Departure - Discharge Patient Received Moderate/Deep Sedation with Procedure: No - Discharge Plan Condition: Improved Disposition: NURSING HOME FACILITY Patient Education Materials: Dehydration (ED) Referrals: Samantha Davila MD [Primary Care Provider] - Additional Instructions: The catheter is functioning normally. Patient was dehydrated. His abdomen is continuously distended from megacolon. Continueresume his bowel regimen. Return with fever, vomiting, worse or other concerns. - Billing Disposition and Condition Condition: IMPROVED Disposition: Senior Living Facility - Attestation Statements Document Initiated by Scribe: Yes Documenting Scribe: Fiona Nieto Provider For Whom Scribe is Documenting (Include Credential): Erasto Chambers MD Scribe Attestation: Fiona Figueredo, scribed for Erasto Chambers MD on 02/12/19 at 0358. Scribe Documentation Reviewed: Yes Provider Attestation: The documentation as recorded by the scribe, Fiona Nieto accurately reflects the service I personally performed and the decisions made by me, Erasto Chambers MD Status of Scribe Document: Viewed
[2019-02-12 02:05] LABS: ABS Basophils 0.1 10^3/ul (0-0.2); ABS Eosinophils 0.1 10^3/ul (0-0.6); ABS Lymphocytes 1.7 10^3/ul (1.0-4.8); ABS Monocytes 1.5 10^3/ul (0-0.8); ABS Neutrophils 9.6 10^3/ul (1.5-7.7); ABS Nucleated RBC 0 10^3/ul; Eosinophil % 0.6 %; Hematocrit 41 % (36-46); Hemoglobin 13.3 g/dL (14.0-18.0); Mean Corpuscular HGB Conc 33 g/dL (31-36); Mean Corpuscular Hemoglobin 30 pg (27-31); Mean Corpuscular Volume 92 fL (80-94); Mean Platelet Volume 8.8 fL (7.4-10.4); Nucleated Red Blood Cells % 0.1; Platelet Count 451 10^3/uL (150-450); Red Blood Count 4.44 10^6 /uL (4.18-5.48); Red Cell Distribution Width 17 % (10.5-15); White Blood Count 12.9 10^3/uL (3.5-10.8)
[2019-02-12 02:22] LABS: Albumin 3.7 g/dL (3.2-5.2); Albumin/Globulin Ratio 1.3 (1-3); BUN/Creatinine Ratio 77.5 (8-20); Calcium 9.3 mg/dL (8.6-10.3); EGFR African American 258.1 (>60); EGFR Non-African American 213.3 (>60); Globulin 2.8 g/dL (2-4); Potassium 3.4 mmol/L (3.5-5.0); Total Bilirubin 0.6 mg/dL (0.2-1.0); Total Protein 6.5 g/dL (6.4-8.9)
[2019-02-12] MEDS ORDERED: cefTRIAXone(*) 1 GM in NS 0.9% 50 ML* 50 ML IVPB ONE (02:22)
[2019-02-12 03:12] LABS: Urine Appearance Turbid; Urine Bacteria 3+ (Absent); Urine Bilirubin Negative (Negative); Urine Blood 3+ (Negative); Urine Color Amber; Urine Glucose Negative (Negative); Urine Ketones Negative (Negative); Urine Nitrite Negative (Negative); Urine Protein 2+(100 mg/dL) (Negative); Urine Red Blood Cell 3+(>10/hpf) (Absent); Urine Specific Gravity 1.014 (1.010-1.030); Urine Squamous Epithelial Cell Present (Absent); Urine Urobilinogen Negative (Negative); Urine White Blood Cell 3+(>20/hpf) (Absent)
[2019-02-12 05:42] VITALS: BP 151/98
== END 2019-02-12 05:49 ==
LOC: ED 01:18
DX: E86.0 Dehydration (principal); N39.0 Urinary tract infection, site not specified; R31.9 Hematuria, unspecified; Z87.440 Personal history of urinary (tract) infections; N20.0 Calculus of kidney; Z87.442 Personal history of urinary calculi; G35 Multiple sclerosis; K59.8 Other specified functional intestinal disorders; N40.0 Benign prostatic hyperplasia without lower urinary tract symptoms; N31.9 Neuromuscular dysfunction of bladder, unspecified; Z87.891 Personal history of nicotine dependence
CPT/HCPCS: 36415; 74018; 80053; 81003; 81015; 83605; 85025; 96361; 96365; 96375; 99282; J0696; J2270; J2405

== ENCOUNTER 2019-02-13 16:03 | Inpatient (IN) | payer MEDICARE, BC, OTHER ==
[~2019-02-13 16:03] MED LIST changes: -Buffered Lidocaine 0.9% SYRIN* 5 ML/SYR SYRINGE INTRADERM ONE; +Etomidate* 2 MG/ML 20 ML VIAL (40 MG) ONE; +Succinylcholine* 20 MG/ML 10 ML VIAL ONE
--- NOTE | 2019-02-13 16:13 | ED ---
Complex/Multi-Sys Presentation - HPI Summary HPI Summary: Pt is a 68 y/o M presenting to the ED brought in by EMS from [facility] for unresponsiveness. LEVEL 5 CAVEAT: Full hx and physical unobtainable due to the pt presently being unconscious. The pt arrived at 1601 and he was seen on arrival. Per EMS, he has had multiple catheter issues within the past couple of weeks, coming [place] [facility] [place] multiple times in one week. He has a hx of MS and urinary retention. - History Of Current Complaint Hx Obtained From: EMS Hx From Patient Unobtainable Due To: Other - unconscious Onset/Duration: Sudden Onset, Lasting Hours, Still Present Timing: Hours Severity Currently: Moderate Severity Initially: Moderate Character: Unable To Describe Aggravating Factor(s): unknown due to level 5 Alleviating Factor(s): unknown due to level 5 Associated Signs And Symptoms: Positive: Decreased Responsiveness - pt is presently unresponsive - Allergies/Home Medications Allergies/Adverse Reactions: Allergies Allergy/AdvReac Type Severity Reaction Status Date / Time No Known Allergies Allergy Verified 02/09/19 23:29 PMH/Surg Hx/FS Hx/Imm Hx Previously Healthy: No - full hx unobtainable due to level 5 Endocrine/Hematology History: Reports: Hx Diabetes - diet controlled, Hx Thyroid Disease - hypothyroid, Hx Anemia - Iron deficiency Cardiovascular History: Reports: Hx Hypercholesterolemia, Hx Hypertension, Hx Peripheral Vascular Disease - POOR LOWER LEG CIRCULATION Denies: Hx Pacemaker/ICD, Other Cardiovascular Problems/Disorders Respiratory History: Denies: Other Respiratory Problems/Disorders GI History: Reports: Hx Gastroesophageal Reflux Disease, Hx Gastrointestinal Bleed, Other GI Disorders - COLON CA, Constipation History: Reports: Hx Kidney Infection, Hx Kidney Stones, Other Problems/ Disorders - HYDRONEPHROSIS & PYELONEPHROSIS,chronic perez-neurogenic bladder,BPH Musculoskeletal History: Reports: Hx Arthritis, Other Musculoskeletal History - Multiple Sclerosis, Dysphagia, difficulty speaking Sensory History: Reports: Hx Cataracts Denies: Hx Contacts or Glasses, Hx Glaucoma, Hx Hearing Aid Opthamlomology History: Reports: Hx Cataracts Denies: Hx Contacts or Glasses, Hx Glaucoma Neurological History: Reports: Hx Developmental Delay, Hx Nerve Disease - Multiple Sclerosis, Other Neuro Impairments/Disorders - Benign Paroxysmal Vertigo Psychiatric History: Reports: Hx Anxiety Denies: Hx Panic Disorder - Cancer History Cancer Type, Location and Year: colon cancer Hx Chemotherapy: No - Surgical History Surgery Procedure, Year, and Place: CATARACTS RIGHT EYE, [place], [facility],. HERNIATED DISC, , [facility]. 2009 DIAG LAPAROSCOPY, LAPAROTOMY WITH SMALL BOWEL MESENTERIC MASS RESECTION, [facility]. 06/2013 CYSTOSCOPY, BILATERAL RETROGRADE, URETEROSCOPY, FRAGMENTATION AND REMOVAL LEFT URETERAL CALCULUS, BILATERAL STENT INSERTION, [facility]. 08/2013 CYSTOSCOPY, BILATERAL STENT REMOVAL, [facility]. 08/2015 CYSTOSCOPY, URETHERAL DILATION, FRAGMENT OF BLADDER CALCULI, REMOVAL OF SUPRAPUBIC CATHETER, [facility]. 10/2016 CYSTOSCOPY, URETHRAL DILATION, INSERTION OF NATIVE TIP CATHETER, [facility] Hx Anesthesia Reactions: No - per EMR [facility] [place] of [place] - Immunization History Date of Tetanus Vaccine: Unk Date of Influenza Vaccine: Fall 2013 - Family History Known Family History: Positive: Diabetes Negative: Other - prostate CA - Social History Alcohol Use: None Alcohol Amount: unk Hx Substance Use: No Substance Use Type: Reports: None Substance Use Comment - Amount & Last Used: unk Hx Tobacco Use: Yes Smoking Status (MU): Former Smoker Type: Cigarettes Have You Smoked in the Last Year: No Review of Systems - ROS Summary Review of Systems Summary: LEVEL 5 CAVEAT: The pt's full hx and physical are unobtainable due to the pt presently being unconscious. All Other Systems Reviewed And Are Negative: No Physical Exam - Summary Physical Exam Summary: LEVEL 5 CAVEAT: Pt's full hx and physical are limited due to the pt's present status of unresponsive. GENERAL: Patient is lying on the stretcher unresponsive. HEAD AND FACE: Normocephalic EYES: eyes open, very mild blink response EARS: Hearing grossly intact. MOUTH: Oropharynx within normal limits. NECK: Supple, trachea is midline, no adenopathy, no JVD, no carotid bruit. CHEST: Symmetric, no tenderness at palpation CVS: Regular rate and rhythm, S1 and S2 present, no murmurs or gallops appreciated. ABDOMEN: Distended EXTREMITIES: Mild peripheral cyanosis NEURO: Unresponsive SKIN: Dry and frigid Triage Information Reviewed: Yes Vital Signs Reviewed: Yes Completion Of Physical Exam Limited Due To: Level 5 Procedures - Intubation Time of Intubation: 16:15 Intubation Method: orotracheal Tube Size (cm): 8.0 Medications: Succinylcholine Breath Sounds after Intubation: equal Intubation Complications: no complications Post Intubation Xray: Yes Diagnostics - Laboratory Result Diagrams: 02/13/19 16:14 Lab Statement: Any lab studies that have been ordered have been reviewed, and results considered in the medical decision making process. - Radiology CXR Radiology Interpretation Completed By: Radiologist Summary of Radiographic Findings: CARDIOMEGALY. INTERSTITIAL EDEMA CONSISTENT WITH CHF. ET TUBE IN APPROPRIATE LOCATION. NG TUBE APPEARS TO HAVE BEEN WITHDRAWN. ED physician has reviewed this report. - EKG 1719 Cardiac Rate: NL - 76bpm EKG Rhythm: Sinus Rhythm ST Segment: Non-Specific Ectopy: None Summary of EKG Findings: Prolonged QT segment, Q waves. Inverted T waves seen in the inferior leads. Complex Multi-Symp Course/Dx Course Of Treatment: Pt is a 68 y/o M presenting to the ED brought in by EMS from [facility] for unresponsiveness. LEVEL 5 CAVEAT: Full hx and physical unobtainable due to the pt presently being unconscious. The pt arrived at 1601 and he was seen on arrival. Intubation was attempted with a 7.0 tube but it was unsuccessful. Intubation with an 8.0 tube was successful. CXR shows CARDIOMEGALY. INTERSTITIAL EDEMA CONSISTENT WITH CHF. ET TUBE IN APPROPRIATE LOCATION. NG TUBE APPEARS TO HAVE BEEN WITHDRAWN. EKG shows NSR at 76bpm, prolonged QT segment, Q waves, and inverted T waves seen in the inferior leads. The pt is accepted to [facility] [place]. Cruz. - Diagnoses Provider Diagnoses: Unresponsive - Critical Care Time Critical Care Time: 30-74 min Discharge - Sign-Out/Discharge Documenting (check all that apply): Patient Departure - Discharge Plan Condition: Guarded Disposition: ADMITTED TO [facility] - Billing Disposition and Condition Condition: GUARDED Disposition: Admitted to [facility] - Attestation Statements Document Initiated by Scribe: Yes Documenting Scribe: Amanda Barton Provider For Whom Rebecca is Documenting (Include Credential): Rebeca Larson MD. Scribe Attestation: Amanda Figueredo scribed for Rebeca Larson MD. on 02/13/19 at 1818. Scribe Documentation Reviewed: Yes Provider Attestation: The documentation as recorded by the edsonibeAmanda accurately reflects the service I personally performed and the decisions made by Meng yancey MD. Status of Scribe Document: Viewed
[2019-02-13] MEDS ORDERED: NS 0.9% 1000 ML** 2,000 ML IV ONE (16:15)
[2019-02-13] MEDS ORDERED: Piperacillin/Tazobac ADVAN(*) 3.375 GM in NS 0.9% 100 ML* 100 ML IVPB ONE (16:15)
[2019-02-13 17:00] LABS: Activated Partial Thrombo Time 25.7 seconds (26.0-36.3); INR 1.39 (0.77-1.02)
[2019-02-13] MEDS ORDERED: NS 0.9% 1000 ML** 3,000 ML IV ONE (17:09)
[2019-02-13 17:24] LABS: Albumin 4.1 g/dL (3.2-5.2); CO2 Carbon Dioxide 18 mmol/L (22-32); Calcium 10.3 mg/dL (8.6-10.3); Sodium 145 mmol/L (135-145)
[2019-02-13 17:25] LABS: Chloride 112 mmol/L (101-111)
[2019-02-13 17:26] LABS: Anion Gap 15 mmol/L (2-11); Troponin I 0.09 ng/mL (<0.04)
[2019-02-13 17:30] LABS: ALT 16 U/L (7-52); Albumin/Globulin Ratio 1.3 (1-3); Alkaline Phosphatase 87 U/L (34-104); BUN/Creatinine Ratio 35.6 (8-20); Blood Urea Nitrogen 37 mg/dL (6-24); C Reactive Protein 115.83 mg/L (<8.01); EGFR African American 85.7 (>60); EGFR Non-African American 70.8 (>60); Globulin 3.2 g/dL (2-4); Glucose 261 mg/dL (70-100); Total Protein 7.3 g/dL (6.4-8.9)
[2019-02-13] MEDS ORDERED: Naloxone* 0.4 MG/ML 1 ML VIAL IV PUSH PRN (17:38)
[2019-02-13] MEDS ORDERED: Morphine 10 MG/ML VIAL (1 ml) ONE (17:47)
[2019-02-13] MEDS ORDERED: Morphine 10 MG/ML VIAL (1 ml) IV ONE ×2 (17:56→18:06)
[2019-02-13] MEDS ORDERED: Famotidine IV * 20 MG in NS 0.9% 100 ML* 100 ML IVPB SCH (18:00)
[2019-02-13] MEDS ORDERED: Morphine PCA ADULT* 5 MG/ML 30 ML PCA SCH (18:00)
[2019-02-13] MEDS ORDERED: Chlorhexidine MOUTHWASH 0.12%* 15 ML UDC TOPICAL SCH (18:00)
[2019-02-13] MEDS ORDERED: Famotidine IV* 10 MG/ML 2 ML (20 mg) IV SCH (18:00)
[2019-02-13 18:39] VITALS: BP 78/45
--- NOTE | 2019-02-13 20:37 | HP ---
HISTORY AND PHYSICAL: DATE OF ADMISSION: 02/13/19 REASON FOR ADMISSION: Unresponsiveness. HISTORY OF PRESENT ILLNESS: A 68-year-old male sent in from [facility] for evaluation of unresponsiveness. No history could be obtained as the patient is unresponsive. He was having issues with urinary catheter. He was seen by Urology 1 day ago and had his Alarcon placed. He was brought into the emergency room 1 day back for evaluation of hematuria, abdominal pain. He was given 1 dose of Rocephin, IV fluids and was found to have adequate output through his Alarcon and was sent back to the [facility]. He was found to be unresponsive and was brought in. The patient upon arrival in the emergency room was found to be unresponsive on the stretcher. He was noted to have low blood pressure and significant hypoxemia with O2 sats in the 60s. A decision was made to intubate the patient at that time. His original intubation was uneventful; however, his ET tube came out with cuff being fully inflated. He was reintubated with size 8.2 ET tube. The patient with significantly distended abdomen. His blood pressure has been in the low 70s. PAST MEDICAL HISTORY: Includes: 1. Multiple sclerosis. 2. 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 3. Diabetes, diet-controlled. 4. Hypertension. 5. Dyslipidemia. 6. GERD. 7. BPH. 8. Neurogenic bladder. PAST SURGICAL HISTORY: Back surgery, abdominal surgery, bowel resection in the past. MEDICATIONS: At [facility] included: 1. Tramadol. 2. Zocor. 3. Pantoprazole. 4. Oxybutynin. 5. Magnesium. 6. Levothyroxine. 7. Lactulose. 8. Ferrous sulfate. 9. Fenofibrate. 10. Docusate. 11. Ensure. 12. Ceftin. 13. Citalopram. 14. Calcium carbonate. 15. Baclofen. 16. Aspirin. 17. Artificial tears. 18. Acetaminophen. ALLERGIES: No known drug allergies. SOCIAL HISTORY: Smoker. Reported that he quit smoking as per recent medical records with no alcohol or drug abuse concerns. FAMILY HISTORY: Non-contributory REVIEW OF SYSTEMS: Unable to obtain. PHYSICAL EXAMINATION GENERAL: The patient is unresponsive on the stretcher. VITAL SIGNS: Afebrile, tachycardic to 100s, tachypneic, blood pressure last recheck was around 90/60. HEENT: ET tube in place. The patient with bloody secretions through ET tube. LUNGS: Diminished air entry. CARDIOVASCULAR: S1, S2 present. ABDOMEN: Significantly distended, tympanic to percussion. Diminished to absent bowel sounds. EXTREMITIES: Contractures in the upper extremities. Unable to move extremities to painful stimuli. NEUROLOGIC: Unresponsive. DIAGNOSTIC STUDIES/LAB DATA: Labs pending at this time. Chest x-ray showed significantly distended abdomen, unable to appreciate tenderness. Chest x-ray showed dilated colon, ET tube in appropriate location with interstitial edema. ASSESSMENT AND PLAN: 68-year-old male in [facility], chronically bedridden from multiple sclerosis, also with history of dilated bowels and megacolon. The patient was brought in for unresponsiveness. Unclear etiology of unresponsiveness. Suspect sepsis probably from bowel perforation or UTI. He was intubated for respiratory failure. The patient with significant hypotension. Unable to obtain good tidal volumes through ET tube and he has significant leak around the tube. NG tube could not be advanced so is OG tube. Patient is critical at this time with possible deterioration very quickly. Family is at bedside. Discussed in length with patients daughter and son. They have mentioned that patient didnot want any aggressive measures, life prolonging treatments and requested comfort care They have also requested terminal extubation. Patient would be transferred to ICU shortly and will be started on Morphine drip. Will extubate pt in ICU and initiate comfort measure Labs were pending and will address if any reversible etiology noted. [id number]/[facility] #: [id number] LAURA
--- NOTE | 2019-02-13 23:24 | DS ---
DISCHARGE SUMMARY/ SUMMARY: DATE OF ADMISSION: 02/13/19 DATE OF EXPIRATION: 02/13/19 TIME OF EXPIRATION: 06:29 p.m. REASON FOR : The patient was terminally extubated as per family wishes. BRIEF SUMMARY OF HOSPITALIZATION: The patient is a 68-year-old male with complicated course recently. The patient with history of diet controlled diabetes, hypothyroidism, iron deficiency anemia, hypertension, peripheral vascular disease, history of megacolon and prior history of stomach cancer diagnosed in 2009. The patient chronically bedridden, has a history of kidney stones, had bilateral stent insertion, and removed in 2014, had a history of suprapubic catheter placement status post removal in 2015, came in again with ureteral dilatation and had insertion of port lions-tip catheter in 2016. The patient was brought in from emergency room for altered mental status. The patient is a resident at [facility]. He was seen one day back in the ED for abdominal pain and hematuria. He has seen Urology 2 days back and had insertion of urinary catheter. The patient came into the ED on the 02/12/19 for evaluation of hematuria and abdominal pain. Abdominal x- ray at that time showed large amounts of stool in the bowel, dilated bowel loops and also evidence of kidney stones. He was given 1 dose of Rocephin and was sent with oral antibiotics. The patient was brought in for unresponsiveness at detention. The patient was unconscious on arrival with low blood pressure and significant hypoxemia. The patient was intubated immediately in the ED. The patient arrived in the ED at 1601. Intubation was attempted with size 7.0 ET tube, which was unsuccessful, reintubated with 8.2. In spite of cuff being inflated he had leak around the tube. Attempted NG and OG placement was unsuccessful. Chest x- ray showed interstitial edema suggestive of possible overload and ET tube was in good positioning. EKG showed normal sinus rhythm at 76 beats per minute, prolonged QT, Q waves and inverted T waves in inferior leads. The patient was started on fluid boluses. Family was contacted and informed of patient's critical status. Family arrived at bedside. The patient' s is in detention and is suffering from dementia. Daughter was the healthcare proxy and in conjunction with the patient's son decided on comfort care measures and requested terminal extubation. The patient's wishes as per family were no aggressive interventions and no painful measures. As per family' s wishes, the patient was terminally extubated on 02/13/19 at 6:05 p.m. He has received morphine for comfort 10 mg x2. The patient subsequently at 6: 29 p.m. on 02/13/19. Family were at bedside after terminal extubation. driver license examiner was contacted and case was declined. [id number]/[facility] #: [id number] LAURA
== END 2019-02-13 19:30 | disposition expired | DRG 871 ==
LOC: ED 16:03 → ICU 17:06
PROVIDERS: ADMIT Internal Medicine; ATTEND Internal Medicine
PROC: 0BH17EZ Insertion of Endotracheal Airway into Trachea, Via Natural or Artificial Opening (ICD-10-PCS; principal; 2019-02-13)
PROC: 5A1935Z Respiratory Ventilation, Less than 24 Consecutive Hours (ICD-10-PCS; 2019-02-13)
DX: A41.9 Sepsis, unspecified organism (principal); J96.01 Acute respiratory failure with hypoxia; K63.1 Perforation of intestine (nontraumatic); K59.39 Other megacolon; N39.0 Urinary tract infection, site not specified; G35 Multiple sclerosis; E11.9 Type 2 diabetes mellitus without complications; I10 Essential (primary) hypertension; E78.5 Hyperlipidemia, unspecified; K21.9 Gastro-esophageal reflux disease without esophagitis; N40.0 Benign prostatic hyperplasia without lower urinary tract symptoms; N31.9 Neuromuscular dysfunction of bladder, unspecified; I95.9 Hypotension, unspecified; Z51.5 Encounter for palliative care; Z79.1 Long term (current) use of non-steroidal anti-inflammatories (NSAID); Z79.82 Long term (current) use of aspirin; Z79.899 Other long term (current) drug therapy; Z87.891 Personal history of nicotine dependence; Z74.01 Bed confinement status
CPT/HCPCS: 36415; 71045; 80053; 82803; 83605; 84484; 85610; 85730; 86140; 87040; 93005; 94002; 99285; J0330; J2270